=== PATIENT | female | born 1970 | race Caucasian/White ===

== ENCOUNTER 2019-08-13 16:15 | Emergency (ER) | payer OTHER, SELFPAY ==
[2019-08-13 16:15] VITALS: BP 154/73; PULSE 122; RESP 24; TEMP 36.6; O2SAT 97
--- NOTE | 2019-08-13 16:39 | DI.CT.S_ITS ---
PROCEDURE: CT HEAD/BRAIN WO CON INDICATIONS: Fall, Seizure TECHNIQUE: Noncontrast 4.5 mm thick angled axial sections acquired from the foramen magnum to the vertex, with coronal and sagittal reformats. For radiation dose reduction, the following was used: automated exposure control, adjustment of mA and/or kV according to patient size. COMPARISON: [facility], CT, CT FACIAL BONES WO CON, 08/13/2019, 16:42. FINDINGS: Image quality: Excellent. CSF spaces: Basal cisterns are patent. No extra-axial fluid collections. Ventricles are normal in size and shape. Brain: No intracranial hemorrhage, mass, or mass effect. Read-white matter interface is preserved. Skull and face: There is mild left periorbital soft tissue swelling. Calvarium and visualized facial bones are intact, without suspicious lesions. Sinuses: Visualized sinuses and mastoids are clear. IMPRESSION: 1. No acute intracranial abnormality. Dictated by: Nick Sylvester M.D. on 08/13/2019 at 17:04 Approved by: Nick Sylvester M.D. on 08/13/2019 at 17:05
--- NOTE | 2019-08-13 16:39 | DI.CT.S_ITS ---
PROCEDURE: CT CERVICAL SPINE WO CON INDICATIONS: Neck pain TECHNIQUE: Noncontrast 3 mm thick sections acquired from the skull base to the T4 level. Sagittal and coronal reformats were then constructed. For radiation dose reduction, the following was used: automated exposure control, adjustment of mA and/or kV according to patient size. COMPARISON: None. FINDINGS: Image quality: Excellent. Bones: No fractures or dislocations. There is a moderate degree at C5-6 and slightly less C6-C7 degenerative disc disease, without trauma. No subluxation is associated. Visualized superior ribs are intact. Soft tissues: Prevertebral soft tissues are normal in thickness. No paravertebral hematomas. No apical pneumothoraces. IMPRESSION: Chronic degenerative disc disease C5-6 and C6-7 to the degree that spinal and foraminal stenosis, mild in severity, may be associated. Nerve root impingement would be suspected at these 2 levels. No trauma found. Dictated by: Fernando Sorto M.D. on 08/13/2019 at 17:12 Approved by: Fernando Sorto M.D. on 08/13/2019 at 17:13
--- NOTE | 2019-08-13 16:39 | DI.CT.S_ITS ---
PROCEDURE: CT FACIAL BONES WO CON INDICATIONS: L orbital bruising and swelling post fall TECHNIQUE: Noncontrast 2.5 mm thick axial images acquired from the mandible through the frontal sinuses, with coronal and sagittal reformatting. For radiation dose reduction, the following was used: automated exposure control, adjustment of mA and/or kV according to patient size. COMPARISON: [facility], CT, CT HEAD/BRAIN WO CON, 08/13/2019, 16:42. FINDINGS: Image quality: Excellent. Bones and teeth: Orbital devlin are intact. Sinus devlin show no fracture or deformity. Nasal bones and septum are intact. Visualized portions of the mandible demonstrate no fractures or subluxation. Zygomatic arches are intact. Pterygoid plates are intact. Visualized portions of the skull base and auditory canals are intact. Sinuses: Paranasal sinuses are aerated, without fluid levels, mucosal thickening, or mucoceles. Mastoid air cells are aerated. Soft tissues: There is mild left periorbital soft tissue swelling and subcutaneous edema. The globes appear intact. No intraorbital fluid collections or fat stranding. No enlarged lymph nodes. Vascular: Visualized vascular structures appear normal in the absence of contrast. Bony vascular foramina and canals are intact. IMPRESSION: 1. No facial bone fracture identified. 2. Mild left periorbital soft tissue swelling. Dictated by: Nick Sylvester M.D. on 08/13/2019 at 17:05 Approved by: Nick Sylvester M.D. on 08/13/2019 at 17:09
[2019-08-13] MEDS: SODIUM CHLORIDE 0.9% 1,000 ML 1000 ML IV (16:46)
[2019-08-13 17:09] VITALS: BP 154/73; PULSE 111; RESP 18; O2SAT 99
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
[2019-08-13 17:14] LABS: Add Manual Diff / Slide Review NO; Basophils Absolute Auto 0 /uL (0-100); Basophils Percent Auto 1.1 % (0-2); Eosinophils Absolute Auto 0 /uL (0-450); Eosinophils Percent Auto 0.1 % (2-4); Hematocrit 40.5 % (36-46); Hemoglobin 13.1 g/dL (12.0-16.0); Lymphocytes Absolute Auto 400 /uL (1100-4500); Lymphocytes Percent Auto 8.4 % (25-40); Mean Corpuscular HGB Conc 32.3 % (30-36); Mean Corpuscular Hemoglobin 32.4 PG (26-34); Mean Corpuscular Volume 100.4 fL (80-100); Monocytes Absolute Auto 300 /uL (0-900); Monocytes Percent Auto 6.1 % (3-14); Neutrophils Absolute Auto 3700 /uL (1500-7000); Neutrophils Percent Auto 84.3 % (50-75); Platelet Count 96 X10^3/uL (150-400); Red Blood Cell Count 4.03 X10^6/uL (4.0-5.2); Red Cell Distribution Width 17.2 % (11.6-14.8); White Blood Cell Count 4.4 X10^3/uL (4.5-11.0)
[2019-08-13] MEDS: KETOROLAC 60 MG/2 ML VIAL 30 MG IV (17:15)
[2019-08-13] MEDS: ACETAMINOPHEN 325 MG TABLET 650 MG PO (17:16)
[2019-08-13 17:23] LABS: BUN Creatinine Ratio 17.5 (6-22); Blood Urea Nitrogen 11 mg/dL (7-17); Carbon Dioxide 13 mmol/L (22-32); Chloride 99 mmol/L (98-107); Estimated Glomerular Filt Rate > 60.0 mL/min (>60); Glucose 122 mg/dL (70-100); HEMOLYSIS < 15 (0-50); Magnesium 1.9 mg/dL (1.6-2.3); Phosphorous 4.4 mg/dL (2.5-4.5); Potassium 3.7 mmol/L (3.4-5.1); Sodium 140 mmol/L (137-145)
[2019-08-13 17:34] LABS: Ethanol (ETOH) 411 mg/dL
[2019-08-13 17:40] LABS: Prolactin 27.3 ng/mL (3.0-18.6)
== END 2019-08-13 19:51 | disposition home or self-care (01) ==
PROVIDERS: Emergency Provider Nurse Practitioner; PCP General Practice
DX: R56.9 Unspecified convulsions (principal); S09.90XA Unspecified injury of head, initial encounter; M54.2 Cervicalgia; F10.129 Alcohol abuse with intoxication, unspecified; W19.XXXA Unspecified fall, initial encounter
CPT/HCPCS: 36415; 70450; 70486; 72125; 80048; 80320; 83735; 84100; 84146; 85025; 93005; 96361; 96374; 99285; J1885

== ENCOUNTER 2019-12-11 09:32 | Inpatient (IN) | payer OTHER, SELFPAY ==
[2019-12-11] VITALS (50 sets, daily range): BP systolic 122–175; BP diastolic 64–95; PULSE 85–129; RESP 16–25; TEMP 36.4–37.1; O2SAT 90–100; BMI 21.2
--- NOTE | 2019-12-11 10:11 | DI.RAD.S_ITS ---
PROCEDURE: XR CHEST 1V INDICATIONS: cough TECHNIQUE: One view of the chest was acquired. COMPARISON: [facility], , XR CXR 2 VIEW, 12/25/2002, 15:04. FINDINGS: Surgical changes and devices: Mammoplasty implants are incidentally noted. Lungs and pleura: Mild, streaky opacities are seen at the lung bases. No pleural effusions or pneumothorax. Mediastinum: Mediastinal contours appear normal. Heart size is normal. Bones and chest wall: No suspicious bony lesions. Overlying soft tissues appear unremarkable. IMPRESSION: Likely atelectasis is seen at the lung bases. Incidental note is made of: Mammoplasty implants Dictated by: Hakan Reilly M.D. on 12/11/2019 at 9:38 Approved by: Hakan Reilly M.D. on 12/11/2019 at 9:40
--- NOTE | 2019-12-11 10:13 | ED.NAVMDI ---
HPI - Nausea/Vomiting/Diarrhea General Chief complaint: Nausea/Vomiting/Diarrhea Stated complaint: mental health issues, throwing up Time Seen by Provider: 12/11/19 09:53 Source: patient, EMS and police Mode of arrival: Ambulatory Limitations: no limitations History of Present Illness HPI Narrative: Patient complains 1 week of clear nausea vomiting diarrhea with whitish sputum cough. Has had fever and chills. Denies any sick contacts. No COVID-19 exposure. Heart rate noted. Patient states has been too ill to drink oral anything down without throwing up. Related Data Home Medications Medication Instructions Recorded Confirmed No Known Home Medications 12/11/19 12/11/19 Allergies Allergy/AdvReac Type Severity Reaction Status Date / Time iodine Allergy Verified 12/11/19 09:46 Review of Systems Review of Systems Narrative: GENERAL: Denies chills, fatigue, malaise, fever, sweats. HEENT: Denies sinus pain, ear pain, sore throat, difficulty swallowing, dizziness. RESPIRATORY: Denies any dyspnea, has productive cough CARDIOVASCULAR: Denies chest pain, palpitations, orthopnea, edema, GASTROINTESTINAL: Complains of nausea vomiting and watery diarrhea : Denies dysuria, frequency, incontinence, hematuria, urinary retention. MUSCULOSKELETAL: denies weakness, joint pain, or bony pain SKIN: Denies rash, skin lesions, or other NEUROLOGIC: Denies weakness, headache, numbness, change in speech, confusion, seizures, incoordination. PSYCHIATRIC: No concerning psychosocial issues. ROS Unobtainable: All systems reviewed & are unremarkable except as noted in HPI and below Patient History Medical History No significant medical problems (Acute) Social History household members: none Smoking Status: Current every day smoker Smoking Status: Current every day smoker tobacco type: cigarettes alcohol intake frequency: 3 or more drinks per day Substance Use Type: does not use Exam Narrative Exam Narrative: GENERAL: patient appears stated age. Well-nourished, well-developed patient, in no distress, not toxic HEAD: Atraumatic. Normocephalic. EYES: Pupils equal round and reactive. Extraocular motions intact. No scleral icterus. No injection or drainage. ENT: Nose without bleeding, purulent drainage. Throat without erythema, tonsillar hypertrophy or exudate. Airway patent. NECK: Trachea midline. Non tender CARDIOVASCULAR: Regular rate and rhythm without murmurs, gallops, or rubs. RESPIRATORY: Clear to auscultation. Breath sounds equal bilaterally. No wheezes, rales, or rhonchi. GASTROINTESTINAL: Abdomen soft, non-tender, nondistended. EXTREMITIES: No edema or joint tenderness. BACK: Nontender without deformity or crepitance. No flank tenderness. NEURO: AOx3. Clear speech no facial droop. Steady gait in hallway to the bathroom, history of broken foot. SKIN: No rash or erythema of visible areas Initial Vital Signs Initial Vital Signs: Vital Signs Temperature 98.8 F 12/11/19 09:46 Pulse Rate 116 H 12/11/19 09:46 Respiratory Rate 17 12/11/19 09:46 Blood Pressure 136/78 12/11/19 09:46 Pulse Oximetry 95 12/11/19 09:46 Course Course Course Narrative: Patient has been cooperative. Not withdrawing but anxious. Ativan given and has helped. Decision to Admit Date: 12/11/19 Decision to Admit time: 13:24 Orders Ordered: Acetaminophen (Tylenol) 650 mg PO Q6HR PRN PRN Reason: Fever/Mild Pain (1-3) Albuterol (Ventolin) 2.5 mg INH [id number] PRN PRN Reason: Shortness Of Breath Chlordiazepoxide HCl (Librium) 50 mg PO Q6HR [facility] Last Admin: 12/12/19 06:20 Dose: 50 mg Documented by: Admin: 12/12/19 00:20 Dose: 50 mg Documented by: TRISH Folic Acid (Folic Acid) 1 mg PO DAILY [facility] Heparin Sodium (Porcine) (Heparin) 5,000 unit SUBCUT BID [facility] Last Admin: 12/11/19 20:15 Dose: 5,000 unit Documented by: MSTEWART Sodium Chloride (Normal Saline 0.9%) 1,000 mls @ 1,000 mls/hr IV BOLUS PRN PRN Reason: Fluid replacement Last Infusion: 12/11/19 14:08 Dose: 0 mls/hr Documented by: Admin: 12/11/19 12:19 Dose: 1,000 mls/hr Documented by: RMARTIN Sodium Chloride (Normal Saline 0.9%) 1,000 mls @ 100 mls/hr IV CONT JUVE Last Admin: 12/11/19 20:13 Dose: 100 mls/hr Documented by: FRANCHESKA Lorazepam (Ativan) 0 mg IV [id number] PRN; Protocol PRN Reason: Alcohol Withdrawal Last Admin: 12/12/19 04:46 Dose: 2 mg Documented by: Admin: 12/12/19 02:31 Dose: 2 mg Documented by: Admin: 12/12/19 00:40 Dose: 2 mg Documented by: Admin: 12/11/19 21:20 Dose: 2 mg Documented by: Admin: 12/11/19 20:47 Dose: 2 mg Documented by: Admin: 12/11/19 19:32 Dose: 2 mg Documented by: Admin: 12/11/19 18:28 Dose: 2 mg Documented by: Admin: 12/11/19 17:29 Dose: 2 mg Documented by: Admin: 12/11/19 16:55 Dose: 2 mg Documented by: FRANCHESKA Multivitamins (Tab-A-Nany) 1 tab PO DAILY [facility] Naloxone HCl (Narcan) 0.2 mg IV Q2MIN PRN PRN Reason: Opiate Reversal Ondansetron HCl (Zofran) 4 mg IV Q6HR PRN PRN Reason: Nausea And Vomiting Phenobarbital Sodium (Phenobarbital Sodium) 65 mg IV Q2H PRN PRN Reason: ALCOHOL WITHDRAWAL Last Admin: 12/11/19 19:33 Dose: 65 mg Documented by: Admin: 12/11/19 16:55 Dose: 65 mg Documented by: FRANCHESKA Thiamine HCl (Vitamin B-1) 100 mg PO DAILY JUVE Stop: 12/15/19 09:01 Discontinued Medications Sodium Chloride (Normal Saline 0.9%) 1,000 mls @ 1,000 mls/hr IV BOLUS ONE Stop: 12/11/19 11:10 Last Infusion: 12/11/19 12:24 Dose: 0 mls/hr Documented by: Admin: 12/11/19 10:27 Dose: 1,000 mls/hr Documented by: RUFUS Ceftriaxone Sodium/Dextrose (Rocephin) 1 gm in 50 mls @ 100 mls/hr IV NOW ONE Stop: 12/11/19 11:25 Last Infusion: 12/11/19 12:52 Dose: 0 mls/hr Documented by: Admin: 12/11/19 12:22 Dose: 100 mls/hr Documented by: KATE Magnesium Sulfate 2 gm/ Folic Acid 1 mg/ Thiamine HCl 100 mg / Multivitamins 10 ml/ Sodium Chloride 1,015.2 mls @ 125 mls/hr IV NOW ONE Stop: 12/11/19 21:33 Last Admin: 12/11/19 13:57 Dose: 125 mls/hr Documented by: KATE Lorazepam (Ativan) 1 mg IV NOW ONE Stop: 12/11/19 11:47 Last Admin: 12/11/19 12:19 Dose: 1 mg Documented by: KATE Lorazepam (Ativan) 1 mg IV NOW ONE Stop: 12/11/19 14:05 Last Admin: 12/11/19 14:07 Dose: 1 mg Documented by: KATE Lorazepam (Ativan) 1 mg IV NOW ONE Stop: 12/11/19 15:01 Last Admin: 12/11/19 15:32 Dose: 1 mg Documented by: KATE Ondansetron HCl (Zofran) 4 mg IV NOW ONE Stop: 12/11/19 10:12 Last Admin: 12/11/19 10:27 Dose: 4 mg Documented by: RUFUS Ondansetron HCl (Zofran) 4 mg IV NOW ONE Stop: 12/11/19 14:32 Last Admin: 12/11/19 14:36 Dose: 4 mg Documented by: KATE Reevaluation(s) Reevaluation #1: Patient resting comfortably. Not combative. Nausea vomiting diarrhea is controlled. Time: 13:24 Consultations Consultation #1: s/w hospitalist dr valenzuela, will admit regular floor at this time but is aware may need ICU for possible withdrawal symptoms Time: 13:24 Vital Signs Vital signs: Vital Signs - 8 hr 12/11/19 09:46 12/11/19 11:00 12/11/19 12:34 Temperature 98.8 F Pulse Rate 116 H 109 H 108 H Respiratory Rate 17 16 Blood Pressure 136/78 136/64 141/95 H Pulse Oximetry 95 97 95 12/11/19 12:35 Temperature Pulse Rate Respiratory Rate Blood Pressure 146/78 H Pulse Oximetry MDM - Nausea/Vomiting/Diarrhea Lab Data Result diagrams: 12/12/19 04:39 12/12/19 04:39 Labs: Lab Results 12/11/19 12/11/19 12/11/19 Range/Units 09:45 10:00 10:00 WBC 3.8 L (4.5-11.0) X10^3/uL RBC 3.10 L (4.0-5.2) X10^6/uL Hgb 10.9 L (12.0-16.0) g/dL Hct 32.2 L (36-46) % MCV 103.8 H (80-100) fL MCH 35.0 H (26-34) PG MCHC 33.7 (30-36) % RDW 16.5 H (11.6-14.8) % Plt Count 151 (150-400) X10^3/uL Neut % (Auto) 44.1 L (50-75) % Lymph % (Auto) 39.6 (25-40) % Crowley % (Auto) 11.7 (3-14) % Eos % (Auto) 2.4 (2-4) % Baso % (Auto) 2.2 H (0-2) % Neut # (Auto) 1700 (5015-1219) /uL Lymph # (Auto) 1500 (0827-5957) /uL Crowley # (Auto) 400 (0-900) /uL Eos # (Auto) 100 (0-450) /uL Baso # (Auto) 100 (0-100) /uL Sodium (137-145) mmol/L Potassium (3.4-5.1) mmol/L Chloride (98-107) mmol/L Carbon Dioxide (22-32) mmol/L BUN (7-17) mg/dL Creatinine (0.52-1.04) mg/dL Estimated GFR (>60) mL/min BUN/Creatinine Ratio (6-22) Glucose (70-100) mg/dL Lactate (0.7-2.1) mmol/L Calcium (8.4-10.2) mg/dL Total Bilirubin (0.2-1.3) mg/dL AST (14-36) IU/L ALT (<35) IU/L Alkaline Phosphatase (38-126) U/L Total Protein (6.3-8.2) g/dL Albumin (3.5-5.0) g/dL Globulin (1.7-4.1) g/dL Albumin/Globulin Ratio (1.0-2.8) Lipase (23-300) U/L Procalcitonin 0.06 (<0.5) ng/mL Urine Color Urine Appearance Urine pH (4.5-8.0) Ur Specific Braddock (1.000-1.035) Urine Protein (Negative) Urine Glucose (UA) (Negative) g/dL Urine Ketones (NEGATIVE) Urine Occult Blood (Negative) Urine Nitrate (Negative) Urine Bilirubin (NEGATIVE) Urine Urobilinogen (0.2) E.U./dL Ur Leukocyte Esterase (NEGATIVE) Urine RBC (0-5/HPF) Urine WBC (0-5/HPF) Ur Squamous Epith Cells (0-5/HPF) Urine Bacteria (None) Ur Culture Indicated? U Opiates 300ng/mL cut (Negative) Ur Oxycodone Screen (Negative) Urine Methadone Screen (Negative) Ur Barbiturates Screen (Negative) U Tricyclic Antidepress (Negative) Ur Phencyclidine Scrn (Negative) Ur Amphetamines Screen (Negative) U Methamphetamines Scrn (Negative) Ur MDMA Scrn (Ecstasy) (Negative) U Benzodiazepines Scrn (Negative) Urine Cocaine Screen (Negative) U Marijuana (THC) Screen (Negative) Ethyl Alcohol ( - 10) mg/dL Ketones (<0.27) mmol/L COVID-19 PCR Negative (Negative) Hep B Core Total Ab (Negative) 12/11/19 12/11/19 12/11/19 Range/Units 10:00 10:00 10:00 WBC (4.5-11.0) X10^3/uL RBC (4.0-5.2) X10^6/uL Hgb (12.0-16.0) g/dL Hct (36-46) % MCV (80-100) fL MCH (26-34) PG MCHC (30-36) % RDW (11.6-14.8) % Plt Count (150-400) X10^3/uL Neut % (Auto) (50-75) % Lymph % (Auto) (25-40) % Crowley % (Auto) (3-14) % Eos % (Auto) (2-4) % Baso % (Auto) (0-2) % Neut # (Auto) (2996-9789) /uL Lymph # (Auto) (8015-0062) /uL Crowley # (Auto) (0-900) /uL Eos # (Auto) (0-450) /uL Baso # (Auto) (0-100) /uL Sodium 143 (137-145) mmol/L Potassium 3.5 (3.4-5.1) mmol/L Chloride 102 (98-107) mmol/L Carbon Dioxide 28 (22-32) mmol/L BUN 4 L (7-17) mg/dL Creatinine 0.49 L (0.52-1.04) mg/dL Estimated GFR > 60.0 (>60) mL/min BUN/Creatinine Ratio 8.2 (6-22) Glucose 93 (70-100) mg/dL Lactate 4.4 H* (0.7-2.1) mmol/L Calcium 9.3 (8.4-10.2) mg/dL Total Bilirubin 0.9 (0.2-1.3) mg/dL AST 278 H (14-36) IU/L ALT 73 H (<35) IU/L Alkaline Phosphatase 120 (38-126) U/L Total Protein 7.0 (6.3-8.2) g/dL Albumin 4.6 (3.5-5.0) g/dL Globulin 2.4 (1.7-4.1) g/dL Albumin/Globulin Ratio 1.9 (1.0-2.8) Lipase (23-300) U/L Procalcitonin (<0.5) ng/mL Urine Color Urine Appearance Urine pH (4.5-8.0) Ur Specific Braddock (1.000-1.035) Urine Protein (Negative) Urine Glucose (UA) (Negative) g/dL Urine Ketones (NEGATIVE) Urine Occult Blood (Negative) Urine Nitrate (Negative) Urine Bilirubin (NEGATIVE) Urine Urobilinogen (0.2) E.U./dL Ur Leukocyte Esterase (NEGATIVE) Urine RBC (0-5/HPF) Urine WBC (0-5/HPF) Ur Squamous Epith Cells (0-5/HPF) Urine Bacteria (None) Ur Culture Indicated? U Opiates 300ng/mL cut (Negative) Ur Oxycodone Screen (Negative) Urine Methadone Screen (Negative) Ur Barbiturates Screen (Negative) U Tricyclic Antidepress (Negative) Ur Phencyclidine Scrn (Negative) Ur Amphetamines Screen (Negative) U Methamphetamines Scrn (Negative) Ur MDMA Scrn (Ecstasy) (Negative) U Benzodiazepines Scrn (Negative) Urine Cocaine Screen (Negative) U Marijuana (THC) Screen (Negative) Ethyl Alcohol 466 H* ( - 10) mg/dL Ketones 0.51 H (<0.27) mmol/L COVID-19 PCR (Negative) Hep B Core Total Ab (Negative) 12/11/19 12/11/19 12/11/19 Range/Units 10:00 10:00 10:37 WBC (4.5-11.0) X10^3/uL RBC (4.0-5.2) X10^6/uL Hgb (12.0-16.0) g/dL Hct (36-46) % MCV (80-100) fL MCH (26-34) PG MCHC (30-36) % RDW (11.6-14.8) % Plt Count (150-400) X10^3/uL Neut % (Auto) (50-75) % Lymph % (Auto) (25-40) % Crowley % (Auto) (3-14) % Eos % (Auto) (2-4) % Baso % (Auto) (0-2) % Neut # (Auto) (7025-2289) /uL Lymph # (Auto) (6485-7464) /uL Crowley # (Auto) (0-900) /uL Eos # (Auto) (0-450) /uL Baso # (Auto) (0-100) /uL Sodium (137-145) mmol/L Potassium (3.4-5.1) mmol/L Chloride (98-107) mmol/L Carbon Dioxide (22-32) mmol/L BUN (7-17) mg/dL Creatinine (0.52-1.04) mg/dL Estimated GFR (>60) mL/min BUN/Creatinine Ratio (6-22) Glucose (70-100) mg/dL Lactate (0.7-2.1) mmol/L Calcium (8.4-10.2) mg/dL Total Bilirubin (0.2-1.3) mg/dL AST (14-36) IU/L ALT (<35) IU/L Alkaline Phosphatase (38-126) U/L Total Protein (6.3-8.2) g/dL Albumin (3.5-5.0) g/dL Globulin (1.7-4.1) g/dL Albumin/Globulin Ratio (1.0-2.8) Lipase 552 H (23-300) U/L Procalcitonin (<0.5) ng/mL Urine Color Yellow Urine Appearance Clear Urine pH 7.0 (4.5-8.0) Ur Specific Braddock 1.020 (1.000-1.035) Urine Protein 2+ H (Negative) Urine Glucose (UA) Negative (Negative) g/dL Urine Ketones Negative (NEGATIVE) Urine Occult Blood 2+ H (Negative) Urine Nitrate Negative (Negative) Urine Bilirubin Negative (NEGATIVE) Urine Urobilinogen 0.2 (0.2) E.U./dL Ur Leukocyte Esterase Negative (NEGATIVE) Urine RBC 5-10/hpf H (0-5/HPF) Urine WBC None seen (0-5/HPF) Ur Squamous Epith Cells 5-10 /hpf H (0-5/HPF) Urine Bacteria None seen (None) Ur Culture Indicated? Cult not indicated U Opiates 300ng/mL cut (Negative) Ur Oxycodone Screen (Negative) Urine Methadone Screen (Negative) Ur Barbiturates Screen (Negative) U Tricyclic Antidepress (Negative) Ur Phencyclidine Scrn (Negative) Ur Amphetamines Screen (Negative) U Methamphetamines Scrn (Negative) Ur MDMA Scrn (Ecstasy) (Negative) U Benzodiazepines Scrn (Negative) Urine Cocaine Screen (Negative) U Marijuana (THC) Screen (Negative) Ethyl Alcohol ( - 10) mg/dL Ketones (<0.27) mmol/L COVID-19 PCR (Negative) Hep B Core Total Ab Negative (Negative) 12/11/19 Range/Units 10:37 WBC (4.5-11.0) X10^3/uL RBC (4.0-5.2) X10^6/uL Hgb (12.0-16.0) g/dL Hct (36-46) % MCV (80-100) fL MCH (26-34) PG MCHC (30-36) % RDW (11.6-14.8) % Plt Count (150-400) X10^3/uL Neut % (Auto) (50-75) % Lymph % (Auto) (25-40) % Crowley % (Auto) (3-14) % Eos % (Auto) (2-4) % Baso % (Auto) (0-2) % Neut # (Auto) (7870-5708) /uL Lymph # (Auto) (2070-6865) /uL Crowley # (Auto) (0-900) /uL Eos # (Auto) (0-450) /uL Baso # (Auto) (0-100) /uL Sodium (137-145) mmol/L Potassium (3.4-5.1) mmol/L Chloride (98-107) mmol/L Carbon Dioxide (22-32) mmol/L BUN (7-17) mg/dL Creatinine (0.52-1.04) mg/dL Estimated GFR (>60) mL/min BUN/Creatinine Ratio (6-22) Glucose (70-100) mg/dL Lactate (0.7-2.1) mmol/L Calcium (8.4-10.2) mg/dL Total Bilirubin (0.2-1.3) mg/dL AST (14-36) IU/L ALT (<35) IU/L Alkaline Phosphatase (38-126) U/L Total Protein (6.3-8.2) g/dL Albumin (3.5-5.0) g/dL Globulin (1.7-4.1) g/dL Albumin/Globulin Ratio (1.0-2.8) Lipase (23-300) U/L Procalcitonin (<0.5) ng/mL Urine Color Urine Appearance Urine pH (4.5-8.0) Ur Specific Braddock (1.000-1.035) Urine Protein (Negative) Urine Glucose (UA) (Negative) g/dL Urine Ketones (NEGATIVE) Urine Occult Blood (Negative) Urine Nitrate (Negative) Urine Bilirubin (NEGATIVE) Urine Urobilinogen (0.2) E.U./dL Ur Leukocyte Esterase (NEGATIVE) Urine RBC (0-5/HPF) Urine WBC (0-5/HPF) Ur Squamous Epith Cells (0-5/HPF) Urine Bacteria (None) Ur Culture Indicated? U Opiates 300ng/mL cut Negative (Negative) Ur Oxycodone Screen Negative (Negative) Urine Methadone Screen Negative (Negative) Ur Barbiturates Screen Negative (Negative) U Tricyclic Antidepress Negative (Negative) Ur Phencyclidine Scrn Negative (Negative) Ur Amphetamines Screen Negative (Negative) U Methamphetamines Scrn Negative (Negative) Ur MDMA Scrn (Ecstasy) Negative (Negative) U Benzodiazepines Scrn Negative (Negative) Urine Cocaine Screen Negative (Negative) U Marijuana (THC) Screen Positive H (Negative) Ethyl Alcohol ( - 10) mg/dL Ketones (<0.27) mmol/L COVID-19 PCR (Negative) Hep B Core Total Ab (Negative) Imaging Data CT scan - abdomen/pelvis: Radiologist's Impression: [address] [address] [address] Scan Report Signed Patient: Era Grover MMR#: [id number] : 1970Acct:[id number] Age/Sex: 48 / FDate of Service: 12/11/19 Loc: ED Accession Number: [id number] Procedure: CT abdomen pelvis wo con Ordering Provider: Toño Greco MD PROCEDURE: CT ABDOMEN PELVIS WO CON INDICATIONS: Abdominal pain/diarrhea TECHNIQUE: Noncontrast 5 mm thick sections acquired from the diaphragms to the symphysis. 5 mm thick coronal and sagittal reformats were then performed. For radiation dose reduction, the following was used: automated exposure control, adjustment of mA and/or kV according to patient size. COMPARISON: [facility], CT, KIDNEY/ URETER/BLADDER, 06/05/2007, 5:17. [facility], CT, ABDOMEN/PELVIS WITHOUT CONTRAST, 02/13/2010, 12:54. FINDINGS: Image quality: Excellent. Lung bases: Bibasilar atelectasis. Heart size is normal. There is a small hiatal hernia. Note is made of right breast implant. Urinary system: There is a 4 x 7 mm stone in the superior pole of the left kidney. No hydronephrosis. Both kidneys are normal in size. Both ureters appear non-dilated throughout their expected courses. Bladder wall thickness is normal; no calcified bladder stones. Other solid organs: Severe hepatic steatosis. Liver is normal in size. Gallbladder is normal. Pancreas is normal in contours. Spleen is normal in size. No adrenal nodules. Peritoneum and bowel: There is diffuse colonic wall thickening. Appendix is not identified. No CT findings to suggest acute appendicitis. Unenhanced bowel loops demonstrate normal caliber. No free air. There is a trace amount of free fluid. Nodes and vessels: No retroperitoneal or mesenteric adenopathy by size criteria. Aorta and inferior vena cava are normal in caliber. Abdominal wall: No ventral hernias. Pelvis: No free pelvic fluid. No inguinal hernias or adenopathy. Uterus is normal. No adnexal mass. Bones: No suspicious bony lesions. No vertebral body compression fractures. IMPRESSION: 1. Diffuse colonic wall thickening consistent with colitis. Differential diagnosis include inflammatory bowel disease versus infectious colitis. 2. A 4 x 7 mm nonobstructing stone in the superior pole of the left kidney. 3. Hepatic steatosis. 4. Small hiatal hernia. Dictated by: Timothy Yanez M.D. on 12/11/2019 at 12:52 Approved by: Timothy Yanez M.D. on 12/11/2019 at 12:59 Chest x-ray: Radiologist's Impression: [place] [address] XRay Report Signed Patient: Era Grover [facility]#: [id number] : 1970Acct:[id number] Age/Sex: 48 / FDate of Service: 12/11/19 Loc: ED Accession Number: [id number] Procedure: XR chest 1V Ordering Provider: Toño Greco MD PROCEDURE: XR CHEST 1V INDICATIONS: cough TECHNIQUE: One view of the chest was acquired. COMPARISON: [facility], , XR CXR 2 VIEW, 12/25/2002, 15:04. FINDINGS: Surgical changes and devices: Mammoplasty implants are incidentally noted. Lungs and pleura: Mild, streaky opacities are seen at the lung bases. No pleural effusions or pneumothorax. Mediastinum: Mediastinal contours appear normal. Heart size is normal. Bones and chest wall: No suspicious bony lesions. Overlying soft tissues appear unremarkable. IMPRESSION: Likely atelectasis is seen at the lung bases. Incidental note is made of: Mammoplasty implants Dictated by: Hakan Reilly M.D. on 12/11/2019 at 9:38 Approved by: Hakan Reilly M.D. on 12/11/2019 at 9:40 MDM Narrative Medical decision making narrative: Addendum December 12, 2019 at 7:49 a.m. completing notes from yesterday. Decision to admit due to intractable vomiting and diarrhea with colitis and alcohol abuse. Had been given for withdrawal symptoms and control. Banana bag ordered. Hospitalist desire to originally admit to [facility] surge floor and is aware possible need to go to ICU for withdrawal symptoms. Discharge Plan Departure Patient Disposition: Admitted As Inpatient Clinical Impression: Colitis, Alcohol abuse Discharge Date/Time: 12/11/19 15:33 Admit Date/Time: 12/11/19 13:26 Admit Provider: Camden Valenzuela
[2019-12-11] MEDS: ONDANSETRON 4 MG/2 ML INJ IV ×2 (10:27→14:36)
[2019-12-11] MEDS: SODIUM CHLORIDE 0.9% 1,000 ML 1000 ML IV ×2 (10:27→12:19)
[2019-12-11 10:29] LABS: Add Manual Diff / Slide Review NO; Basophils Absolute Auto 100 /uL (0-100); Basophils Percent Auto 2.2 % (0-2); Eosinophils Absolute Auto 100 /uL (0-450); Eosinophils Percent Auto 2.4 % (2-4); Hematocrit 32.2 % (36-46); Hemoglobin 10.9 g/dL (12.0-16.0); Lymphocytes Absolute Auto 1500 /uL (1100-4500); Lymphocytes Percent Auto 39.6 % (25-40); Mean Corpuscular HGB Conc 33.7 % (30-36); Mean Corpuscular Volume 103.8 fL (80-100); Monocytes Absolute Auto 400 /uL (0-900); Monocytes Percent Auto 11.7 % (3-14); Neutrophils Absolute Auto 1700 /uL (1500-7000); Neutrophils Percent Auto 44.1 % (50-75); Platelet Count 151 X10^3/uL (150-400); Red Cell Distribution Width 16.5 % (11.6-14.8); White Blood Cell Count 3.8 X10^3/uL (4.5-11.0)
[2019-12-11 10:39] LABS: Alanine Aminotransferase 73 IU/L (<35); Albumin 4.6 g/dL (3.5-5.0); Albumin Globulin Ratio 1.9 (1.0-2.8); Alkaline Phosphatase 120 U/L (38-126); Aspartate Aminotransferase 278 IU/L (14-36); BUN Creatinine Ratio 8.2 (6-22); Bilirubin Total 0.9 mg/dL (0.2-1.3); Blood Urea Nitrogen 4 mg/dL (7-17); Calcium 9.3 mg/dL (8.4-10.2); Carbon Dioxide 28 mmol/L (22-32); Chloride 102 mmol/L (98-107); Estimated Glomerular Filt Rate > 60.0 mL/min (>60); Globulin 2.4 g/dL (1.7-4.1); Glucose 93 mg/dL (70-100); HEMOLYSIS 23 (0-50); Potassium 3.5 mmol/L (3.4-5.1); Sodium 143 mmol/L (137-145)
[2019-12-11 10:41] LABS: Ketones (Beta-Hydroxybutyrate) 0.51 mmol/L (<0.27)
[2019-12-11 10:42] LABS: Lactate (Lactic Acid) 4.4 mmol/L (0.7-2.1)
[2019-12-11 10:42] LABS: Bacteria Urine None Seen; WBC Urine None Seen (0-5/HPF)
[2019-12-11 10:43] LABS: Appearance Urine UA CLEAR; Bilirubin Urine UA NEGATIVE (NEGATIVE); Glucose Urine UA NEGATIVE (Negative); Ketones Urine UA NEGATIVE (NEGATIVE); Leukocyte Esterase Urine UA NEGATIVE (NEGATIVE); Nitrite Urine UA NEGATIVE (Negative); Occult Blood Urine UA 2+ (Negative); Protein Urine UA 2+ (Negative); Urobilinogen Urine UA 0.2 E.U./dL (0.2)
[2019-12-11 10:44] LABS: Ur Creatinine Normal (Normal); Ur Specific Gravity Normal (Normal); Urine pH Normal (Normal)
[2019-12-11 10:45] LABS: UR Morphine/Opiate cutoff 300 Negative (Negative); Urine Amphetamines Negative (Negative); Urine Barbiturates Negative (Negative); Urine Benzodiazepines Negative (Negative); Urine Cocaine Negative (Negative); Urine MDMA Negative (Negative); Urine Methadone Negative (Negative); Urine Methamphetamines Negative (Negative); Urine Oxycodone Negative (Negative); Urine Phencyclidine Negative (Negative); Urine Tetrahydrocannabinol Positive (Negative); Urine Tricyclic Antidepressant Negative (Negative)
[2019-12-11 10:50] LABS: Color Urine UA Yellow; Culture Indicated Urine Cult Not Indicated; RBC Urine 5-10/HPF (0-5/HPF); Squamous Epithelial Cell Urine 5-10 /HPF (0-5/HPF)
[2019-12-11 10:56] LABS: Procalcitonin 0.06 ng/mL (<0.5)
[2019-12-11 10:59] LABS: Ethanol (ETOH) 466 mg/dL
[2019-12-11 11:42] LABS: COVID19 -Nasal RAPID Negative (Negative)
--- NOTE | 2019-12-11 12:07 | PC.NURSE ---
Charge Nurse Olamide reported patient pulled out original IV site to L hand. New IV inserted to R wrist.
[2019-12-11] MEDS: LORazepam 2 MG/ML INJ 1 MG IV ×3 (12:19→15:32)
[2019-12-11 12:22] LABS: Reflexed Lactate in 2 Hours Y
[2019-12-11] MEDS: CEFTRIAXONE 1 GM/50 ML FROZ.PIGGY IV (12:22)
--- NOTE | 2019-12-11 12:31 | DI.CT.S_ITS ---
PROCEDURE: CT ABDOMEN PELVIS WO CON INDICATIONS: Abdominal pain/diarrhea TECHNIQUE: Noncontrast 5 mm thick sections acquired from the diaphragms to the symphysis. 5 mm thick coronal and sagittal reformats were then performed. For radiation dose reduction, the following was used: automated exposure control, adjustment of mA and/or kV according to patient size. COMPARISON: [facility], CT, KIDNEY/ URETER/BLADDER, 06/05/2007, 5:17. [facility], CT, ABDOMEN/PELVIS WITHOUT CONTRAST, 02/13/2010, 12:54. FINDINGS: Image quality: Excellent. Lung bases: Bibasilar atelectasis. Heart size is normal. There is a small hiatal hernia. Note is made of right breast implant. Urinary system: There is a 4 x 7 mm stone in the superior pole of the left kidney. No hydronephrosis. Both kidneys are normal in size. Both ureters appear non-dilated throughout their expected courses. Bladder wall thickness is normal; no calcified bladder stones. Other solid organs: Severe hepatic steatosis. Liver is normal in size. Gallbladder is normal. Pancreas is normal in contours. Spleen is normal in size. No adrenal nodules. Peritoneum and bowel: There is diffuse colonic wall thickening. Appendix is not identified. No CT findings to suggest acute appendicitis. Unenhanced bowel loops demonstrate normal caliber. No free air. There is a trace amount of free fluid. Nodes and vessels: No retroperitoneal or mesenteric adenopathy by size criteria. Aorta and inferior vena cava are normal in caliber. Abdominal wall: No ventral hernias. Pelvis: No free pelvic fluid. No inguinal hernias or adenopathy. Uterus is normal. No adnexal mass. Bones: No suspicious bony lesions. No vertebral body compression fractures. IMPRESSION: 1. Diffuse colonic wall thickening consistent with colitis. Differential diagnosis include inflammatory bowel disease versus infectious colitis. 2. A 4 x 7 mm nonobstructing stone in the superior pole of the left kidney. 3. Hepatic steatosis. 4. Small hiatal hernia. Dictated by: Timothy Yanez M.D. on 12/11/2019 at 12:52 Approved by: Timothy Yanez M.D. on 12/11/2019 at 12:59
[2019-12-11] MEDS: MAGNESIUM SULFATE 2 GM, FOLIC ACID 1 MG, THIAMINE 100 MG, MULTIVITAMIN 10 ML in SODIUM ... IV (13:57)
[2019-12-11 14:31] LABS: Lactate 2HR (Lactic Acid Rflx) 4.1 mmol/L (0.7-2.1)
[2019-12-11 15:00] LABS: Lipase 552 U/L (23-300)
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
[2019-12-11] MEDS: PHENobarbital 130 MG/ML VIAL 65 MG IV ×2 (16:55→19:33)
[2019-12-11] MEDS: LORazepam 2 MG/ML INJ IV ×6 (16:55→21:20)
--- NOTE | 2019-12-11 17:02 | DI.RAD.S_ITS ---
PROCEDURE: XR FOOT LT 2V INDICATIONS: reported fracture, not wearing brace, continued pain TECHNIQUE: AP and lateral views of the foot were acquired. COMPARISON: [facility], , FOOT 3V RIGHT, 11/18/2006, 10:32. FINDINGS: Bones: No acute fractures or dislocations. No suspicious bony lesions. Incidental note of os naviculare and prominent retrocalcaneal spur Soft tissues: Mild soft tissue swelling over the left forefoot. No tibiotalar joint effusion. Achilles tendon appears normal. IMPRESSION: Mild left forefoot soft tissue swelling without underlying fracture or dislocation. If there is persistent clinical concern for occult fracture given adequate mechanism of injury, consider repeat imaging in 10-14 days. Dictated by: Markie Baldwin M.D. on 12/11/2019 at 17:34 Approved by: Markie Baldwin M.D. on 12/11/2019 at 17:39
[2019-12-11] MEDS: SODIUM CHLORIDE 0.9% 1,000 ML 100 ML IV (20:13)
[2019-12-11] MEDS: HEPARIN 5,000 UNIT/ML VIAL 5000 UNIT SUBCUT (20:15)
[2019-12-12] VITALS (34 sets, daily range): BP systolic 142–170; BP diastolic 78–99; PULSE 65–130; RESP 14–20; TEMP 36.6–37.9; O2SAT 90–100
[2019-12-12] MEDS: chlordiazePOXIDE 25 MG CAPSULE 50 MG PO ×2 (00:20→06:20)
[2019-12-12] MEDS: LORazepam 2 MG/ML INJ IV ×5 (00:40→13:00)
[2019-12-12 02:36] LABS: Hepatitis B Core Antibody Negative (Negative)
[2019-12-12 05:05] LABS: Add Manual Diff / Slide Review NO; Basophils Absolute Auto 100 /uL (0-100); Basophils Percent Auto 1.7 % (0-2); Eosinophils Absolute Auto 0 /uL (0-450); Eosinophils Percent Auto 0.9 % (2-4); Hematocrit 31.2 % (36-46); Hemoglobin 10.6 g/dL (12.0-16.0); Lymphocytes Absolute Auto 600 /uL (1100-4500); Lymphocytes Percent Auto 11.3 % (25-40); Mean Corpuscular HGB Conc 33.9 % (30-36); Mean Corpuscular Hemoglobin 35.3 PG (26-34); Mean Corpuscular Volume 104.2 fL (80-100); Monocytes Absolute Auto 300 /uL (0-900); Monocytes Percent Auto 5.4 % (3-14); Neutrophils Absolute Auto 4200 /uL (1500-7000); Neutrophils Percent Auto 80.7 % (50-75); Platelet Count 100 X10^3/uL (150-400); Red Blood Cell Count 2.99 X10^6/uL (4.0-5.2); Red Cell Distribution Width 16.3 % (11.6-14.8); White Blood Cell Count 5.2 X10^3/uL (4.5-11.0)
[2019-12-12 05:20] LABS: INR 0.9 (0.9-1.3); Prothrombin Time 10.9 SECONDS (10.1-12.7)
[2019-12-12 05:22] LABS: PTT Partial Thromboplastin Tim 30 SECONDS (26.4-36.2)
[2019-12-12 05:24] LABS: Albumin Globulin Ratio 1.7 (1.0-2.8); Alkaline Phosphatase 111 U/L (38-126); Aspartate Aminotransferase 162 IU/L (14-36); Bilirubin Total 1.6 mg/dL (0.2-1.3); Bilirubin Unconjugated 1.5 mg/dL (0.0-1.1); Calcium 8.3 mg/dL (8.4-10.2); Carbon Dioxide 31 mmol/L (22-32); Chloride 99 mmol/L (98-107); Estimated Glomerular Filt Rate > 60.0 mL/min (>60); Globulin 2.3 g/dL (1.7-4.1); Glucose 89 mg/dL (70-100); HEMOLYSIS < 15 (0-50); Magnesium 1.6 mg/dL (1.6-2.3); Phosphorous 3.2 mg/dL (2.5-4.5); Potassium 3.8 mmol/L (3.4-5.1); Sodium 134 mmol/L (137-145); Total Protein 6.3 g/dL (6.3-8.2)
[2019-12-12 05:27] LABS: BUN Creatinine Ratio 4.4 (6-22); Blood Urea Nitrogen < 2 mg/dL (7-17)
[2019-12-12 05:44] LABS: Lactate (Lactic Acid) 1.4 mmol/L (0.7-2.1)
--- NOTE | 2019-12-12 06:39 | PC.NURSE ---
Glass Presser Note-Patient is oriented to person and place, CIWA has been 3-17, mostly from tremors and anxiety, is cooperative and uses call light most of the time. Receiving PO Librium Q6h and IV Ativan per CIWA protocol. SR/ST, HR goes up to 120s with activity. 1 person assist to BSC.
[2019-12-12 07:05] LABS: TSH w/ Reflex to FT4 4.96 uIU/mL (0.47-4.68)
[2019-12-12] MEDS: HEPARIN 5,000 UNIT/ML VIAL 5000 UNIT SUBCUT ×2 (08:35→21:39)
[2019-12-12] MEDS: THIAMINE 100 MG TABLET PO (08:36)
[2019-12-12] MEDS: chlordiazePOXIDE 25 MG CAPSULE PO (08:36)
[2019-12-12] MEDS: FOLIC ACID 1 MG TABLET PO (08:36)
[2019-12-12] MEDS: MULTIVITAMIN 1 TABLET 1 TAB PO (08:36)
[2019-12-12 08:42] LABS: Hep C Virus Ab w/Reflex Quant NEGATIVE s/c (NEGATIVE); Hepatitis B Surface Antigen NEGATIVE s/c (NEGATIVE)
[2019-12-12] MEDS: ONDANSETRON 4 MG/2 ML INJ IV (08:49)
[2019-12-12] MEDS: SODIUM CHLORIDE 0.9% 1,000 ML 100 ML IV (08:54)
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
[2019-12-12] MEDS: chlordiazePOXIDE 25 MG CAPSULE 75 MG PO ×3 (12:52→23:58)
[2019-12-12 14:11] LABS: Alanine Aminotransferase 61 IU/L (<35)
[2019-12-12] MEDS: ACETAMINOPHEN 325 MG TABLET 650 MG PO ×2 (15:50→23:59)
[2019-12-12] MEDS: LORazepam 1 MG TABLET PO ×2 (15:58→23:59)
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
[2019-12-13] VITALS (12 sets, daily range): BP systolic 123–173; BP diastolic 74–94; PULSE 74–110; RESP 16–20; TEMP 36.3–37.2; O2SAT 96–100
[2019-12-13] MEDS: LORazepam 1 MG TABLET PO ×3 (04:50→16:15)
[2019-12-13 05:16] LABS: Hematocrit 31.4 % (36-46); Hemoglobin 10.6 g/dL (12.0-16.0); Mean Corpuscular HGB Conc 33.7 % (30-36); Mean Corpuscular Hemoglobin 35.3 PG (26-34); Mean Corpuscular Volume 104.7 fL (80-100); Platelet Count 88 X10^3/uL (150-400); Red Cell Distribution Width 16.4 % (11.6-14.8); White Blood Cell Count 3.5 X10^3/uL (4.5-11.0)
[2019-12-13 05:20] LABS: Alanine Aminotransferase 64 IU/L (<35); Albumin Globulin Ratio 1.5 (1.0-2.8); Alkaline Phosphatase 117 U/L (38-126); Aspartate Aminotransferase 192 IU/L (14-36); Bilirubin Total 1.1 mg/dL (0.2-1.3); Calcium 9.2 mg/dL (8.4-10.2); Carbon Dioxide 22 mmol/L (22-32); Chloride 101 mmol/L (98-107); Estimated Glomerular Filt Rate > 60.0 mL/min (>60); Globulin 2.6 g/dL (1.7-4.1); Glucose 71 mg/dL (70-100); HEMOLYSIS < 15 (0-50); Magnesium 1.5 mg/dL (1.6-2.3); Phosphorous 3.5 mg/dL (2.5-4.5); Potassium 3.3 mmol/L (3.4-5.1); Sodium 135 mmol/L (137-145); Total Protein 6.6 g/dL (6.3-8.2)
[2019-12-13 05:21] LABS: Add Manual Diff / Slide Review YES; BUN Creatinine Ratio 4.3 (6-22); Blood Urea Nitrogen 2 mg/dL (7-17)
[2019-12-13 05:35] LABS: Neutrophils Absolute Manual 2555 /uL (3000-5900); Nucleated Red Blood Cells 3 #/Diff; Total Cells Counted 100
[2019-12-13 05:36] LABS: Anisocytosis 1+; Macrocytosis 1+; Polychromasia 1+
[2019-12-13] MEDS: ACETAMINOPHEN 325 MG TABLET 650 MG PO ×2 (06:03→12:29)
[2019-12-13] MEDS: chlordiazePOXIDE 25 MG CAPSULE 75 MG PO ×3 (06:04→18:20)
[2019-12-13 07:22] LABS: Hepatitis B Surf Ab Qualitativ Non Reactive (.)
[2019-12-13] MEDS: ONDANSETRON 4 MG/2 ML INJ IV (08:10)
[2019-12-13] MEDS: FOLIC ACID 1 MG TABLET PO (09:08)
[2019-12-13] MEDS: THIAMINE 100 MG TABLET PO (09:08)
[2019-12-13] MEDS: GABAPENTIN 100 MG CAPSULE 400 MG PO ×3 (09:08→19:51)
[2019-12-13] MEDS: KETOROLAC 30 MG/ML VIAL IV (09:08)
[2019-12-13] MEDS: MULTIVITAMIN 1 TABLET 1 TAB PO (09:08)
[2019-12-13] MEDS: HEPARIN 5,000 UNIT/ML VIAL 5000 UNIT SUBCUT ×2 (09:08→19:51)
[2019-12-13] MEDS: MAGNESIUM SULFATE 2 GM/50 ML PIGGYBACK IV (12:28)
[2019-12-13] MEDS: POTASSIUM CHLORIDE 20 MEQ TAB 40 MEQ PO (12:28)
--- NOTE | 2019-12-13 14:16 | PT.IIE ---
Current Diagnoses Alcohol dependence with withdrawal, uncomplicated (12/11/19) Medical History (Last Reviewed 12/11/19 @ 10:17 by Toño Greco MD) No significant medical problems (Acute) Physical Therapy Inpatient Evaluation/Re-Eval M1 PT/OT-IP Prior Functional Status Start: 12/13/19 14:19 Freq: NEEDED Status: Active Protocol: Document 12/13/19 13:35 DCW (Rec: 12/13/19 14:30 DCW [id number]) Medical Review Social History Household Members none Living Arrangements Apartment/Condo M2 PT-IP Current Condition Start: 12/13/19 14:19 Freq: NEEDED Status: Active Protocol: Document 12/13/19 13:35 DCW (Rec: 12/13/19 14:30 DCW [id number]) Physical Therapy Current Condition Current Condition Evaluation Date 12/13/19 Treatment Diagnosis ankle sprain Onset Date two weeks M3 PT-IP Subjective Start: 12/13/19 14:19 Freq: NEEDED Status: Active Protocol: Document 12/13/19 13:35 DCW (Rec: 12/13/19 14:30 DCW [id number]) Subjective Physical Therapy Visit Type Type Initial Evaluation Visit Start Time 13:35 Visit Stop Time 14:16 Total Visit Minutes 41 Notes Pt admitted to [facility] for management of withdraw symptoms secondary to ETOH abuse. Pt also experiencing severe L ankle pain after a fall two weeks ago while hiking. X-rays were negative, Dr Valenzuela requested Physical Therapy provide pt with walking boot. Number of VOLLEYBALL COACH Visits 0 Physical Therapy Visit Comments Patient Comments I don't know what you expect me to do, it hurts too much. Therapy Pain Assessment Pain When Pain Assessed At Rest Location Left Foot Intensity 6 Scale Used Numeric (0 - 10) M4 PT-IP Mobility and Gait Start: 12/13/19 14:19 Freq: NEEDED Status: Active Protocol: Document 12/13/19 13:35 DCW (Rec: 12/13/19 14:30 DCW [id number]) PT-Bed Mobility Assessment Rolling Level of Assist Independent Supine to Sit Supine to Sit Independent Sit to Supine Sit to Supine Independent PT-Transfer Assessment Sit to and From Stand Sit to and from Stand Independent Equipment Transfer Assistive Device Bed Rail,Standard Walker Transfer Ability Level of Assist Independent Comments Mobility Comments Pt experienced severe pain in standing /s a walking boot, however upon donning boot, it 's like a miracle, that thing, pt notes ankle felt much better while bearing weight. Pt required FWW and SBA due to instability, pt able to walk two laps around room with minimal pain. Gait Assessment Gait Gait Assistance Required: Standby Assistance Distance (Feet) 20 Able to Maintain Weight Bearing Status Yes During Gait Assistive Devices Assistive Device Standard Walker Gait Deviations General Gait Pattern Antalgic,Decreased Feet Clearance,Flexed Trunk,Wide Based Gait Factors Limiting Gait Function Factors Limiting Gait Function Decreased Activity Tolerance, Incoordination,Pain,Poor Safety Awareness M5 PT-IP Objective Assessments Start: 12/13/19 14:19 Freq: NEEDED Status: Active Protocol: Document 12/13/19 13:35 DCW (Rec: 12/13/19 14:30 DCW [id number]) Orientation Orientation/Cognition Level of Alertness Alert Language Function Ability No Deficits Noted Safety Awareness Understands Safety Issues Memory Description No Deficits Noted Strength Lower Extremity Strength Assessment Left Impaired Ankle 3/5 Coordination Assessment Gross Coordination Gross Coordination Impaired M6 PT-IP Treatment Start: 12/13/19 14:19 Freq: NEEDED Status: Active Protocol: Document 12/13/19 13:35 DCW (Rec: 12/13/19 14:30 DCW [id number]) Physical Therapy Treatment Education Brace Education Donning,Pillow,Patient Equipment Issued Equipment Type and Company Lunar air walker - walking boot M7 PT-IP Assessment and Plan Start: 12/13/19 14:19 Freq: NEEDED Status: Active Protocol: Document 12/13/19 13:35 DCW (Rec: 12/13/19 14:30 DCW [id number]) PT Summary Assessment and Plan Potential Rehabilitation Potential Good Status of Condition at Evaluation Evolving Summary Impairments Pain,ROM,Strength Assessment Summary Pt much more comfortable ambulating with air walking boot and FWW, still unstable secondary to DTs/withdraw symptoms. Pt should wear walking boot during weight bearing activities during in- patient stay, and will likely need to follow-up with her PCP upon discharge. Boot dispensed per orders, will discharge from in-patient therapy at this time. Frequency of Treatment Frequency Of Treatment Discharge Recommendations To Nursing Amount of Assist Needed Standby Assistance,1 Person Assist Discharge Recommendations PT Discharge Recommendations Home,Home with Assistance Other Discharge Recommendations May need FWW upon discharge pending pt response to DT Transportation Needs at Discharge Private Vehicle
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
--- NOTE | 2019-12-13 15:48 | DIET.PN ---
Dietary Progress Note Assessment: 48y F admitted for 2w of vomiting secondary to prolonged etoh use referred to nutrition for alcoholism. Pt reports drinking 1/2gal vodka per day for past 6mo worsened by of immediate family members. Pt reports vomiting for past 2w, her throat and tongue are still sore today from the stomach acid. Pt says her eyes do wonder sometimes and get fuzzy/nystigmus. Pt was trying to plug her phone into the wrong side of phone mining manager, I assisted her in flipping the mining manager at which point pt tried again the wrong way and stated it worked earlier, then said she could not see anything. Pt's phone was beeping and told me if she put the tv remote under her pillow it would make the phone stop beeping, it did not. Pt reports hx of anemia and endorses craving ice, current hgb 10.6 L. Pt has never been breakfast eater and cannot recall foods she has eaten over past 2w. Pt says she usually does not eat food when on drinking binges but does drink pulpy orange juice. Pt reports liking salmon and fettuccine blanco, [place], does not like beef or black pepper. Pt has been living in a motel. HT: 160cm WT: 54.4kg UBW: none on record, pt reports gaining weight over past 6mo and losing while in hospital BMI: 21.3 Labs: hgb 10.6 L, Na 135 L, K+ 3.3 L, Mg 1.5L, AST 192 H, ALT 64 H, etoh on admit 466 H MNA: not calculated Sampson: 19 Nutrition Diagnosis: Interventions: 1. Discussed thiamine deficiency in context of chronic excessive etoh use, why thiamin is nutrient of concern and signs of thiamin deficiency (vomiting, nystigmus, WE). 2. Encouraged pt to eat nutritious foods while in hospital to support her body and healing, acclimated pt to menu and how to order meals. Helped pt order her dinner of: turkey c mashed potatoes, broccoli, side salad and oj. Diet Order: EER: 1500kcal, 70g PRO Monitoring/Evaluations: following POs.
[2019-12-13 19:50] LABS: Bacteria Urine None Seen; WBC Urine None Seen (0-5/HPF)
[2019-12-13] MEDS: SODIUM CHLORIDE 0.9% FLUSH 10 ML IV (19:50)
[2019-12-13 19:51] LABS: Appearance Urine UA CLEAR; Bilirubin Urine UA 2+ (NEGATIVE); Color Urine UA YELLOW; Glucose Urine UA NEGATIVE (Negative); Ketones Urine UA 2+ (NEGATIVE); Leukocyte Esterase Urine UA NEGATIVE (NEGATIVE); Nitrite Urine UA NEGATIVE (Negative); Occult Blood Urine UA 1+ (Negative); Protein Urine UA 1+ (Negative)
[2019-12-13] MEDS: polyethylene glycoL 3350 17 GM POWD.PACK PO (19:51)
[2019-12-13 19:52] LABS: pH Urine UA 6.5 (4.5-8.0)
[2019-12-13 19:54] LABS: Ictotest Urine Negative (Negative)
[2019-12-13 19:58] LABS: RBC Urine 1-5/HPF (0-5/HPF); Squamous Epithelial Cell Urine >30 /HPF (0-5/HPF)
[2019-12-13 19:59] LABS: Culture Indicated Urine Cult Not Indicated; Mucus Urine 2+ (Negative)
[2019-12-13] MEDS: KETOROLAC 10 MG TABLET PO (20:09)
[2019-12-14] VITALS (14 sets, daily range): BP systolic 114–156; BP diastolic 62–92; PULSE 71–96; RESP 16–20; TEMP 36.1–37; O2SAT 97–99
[2019-12-14] MEDS: chlordiazePOXIDE 25 MG CAPSULE 75 MG PO ×2 (00:26→06:24)
[2019-12-14] MEDS: KETOROLAC 10 MG TABLET PO ×4 (03:29→22:17)
[2019-12-14] MEDS: LORazepam 1 MG TABLET PO ×5 (03:29→22:17)
[2019-12-14] MEDS: ONDANSETRON 4 MG/2 ML INJ IV (03:29)
[2019-12-14 06:18] LABS: Alanine Aminotransferase 88 IU/L (<35); Albumin 3.8 g/dL (3.5-5.0); Albumin Globulin Ratio 1.7 (1.0-2.8); Alkaline Phosphatase 118 U/L (38-126); Aspartate Aminotransferase 274 IU/L (14-36); Bilirubin Total 0.7 mg/dL (0.2-1.3); Bilirubin Unconjugated 0.7 mg/dL (0.0-1.1); Blood Urea Nitrogen 6 mg/dL (7-17); Calcium 9.5 mg/dL (8.4-10.2); Carbon Dioxide 24 mmol/L (22-32); Chloride 103 mmol/L (98-107); Estimated Glomerular Filt Rate > 60.0 mL/min (>60); Globulin 2.3 g/dL (1.7-4.1); Glucose 94 mg/dL (70-100); HEMOLYSIS < 15 (0-50); Magnesium 1.8 mg/dL (1.6-2.3); Phosphorous 4.3 mg/dL (2.5-4.5); Potassium 3.8 mmol/L (3.4-5.1); Sodium 134 mmol/L (137-145); Total Protein 6.1 g/dL (6.3-8.2)
[2019-12-14 06:31] LABS: Add Manual Diff / Slide Review NO; Basophils Absolute Auto 0 /uL (0-100); Basophils Percent Auto 1.1 % (0-2); Eosinophils Absolute Auto 100 /uL (0-450); Eosinophils Percent Auto 2.1 % (2-4); Hematocrit 30.1 % (36-46); Hemoglobin 10.1 g/dL (12.0-16.0); Lymphocytes Absolute Auto 400 /uL (1100-4500); Lymphocytes Percent Auto 9.1 % (25-40); Mean Corpuscular HGB Conc 33.7 % (30-36); Mean Corpuscular Hemoglobin 35.8 PG (26-34); Mean Corpuscular Volume 106.2 fL (80-100); Monocytes Absolute Auto 300 /uL (0-900); Monocytes Percent Auto 6.7 % (3-14); Neutrophils Absolute Auto 3600 /uL (1500-7000); Platelet Count 91 X10^3/uL (150-400); Red Blood Cell Count 2.83 X10^6/uL (4.0-5.2); Red Cell Distribution Width 15.4 % (11.6-14.8); White Blood Cell Count 4.4 X10^3/uL (4.5-11.0)
--- NOTE | 2019-12-14 07:44 | DI.US.S_ITS ---
PROCEDURE: US ABDOMEN LIMITED INDICATIONS: ETOH, HEPATITIS TECHNIQUE: Real-time focused scanning was performed of the abdomen, with image documentation. COMPARISON: [facility], CT, CT ABDOMEN PELVIS WO CON, 12/11/2019, 12:16. FINDINGS: The liver demonstrates normal size. The liver demonstrates generalized increased echogenicity. This decreases ultrasound sensitivity for detection of hepatic masses. No findings of gallstones or sludge are seen. The gallbladder wall is not thickened, measuring 3 mm or less. No specific pericholecystic fluid is seen. The sonographic Viveros sign is negative. There is no biliary dilatation, the common bile duct measures 6 mm. No significant pancreatic abnormality is seen on these images. IMPRESSION: The liver demonstrates increased echogenicity. This finding is nonspecific, yet it is most commonly attributed to fatty infiltration. The gallbladder demonstrates a normal sonographic appearance. No biliary dilatation is seen. Dictated by: Hakan Reilly M.D. on 12/14/2019 at 8:11 Approved by: Hakan Reilly M.D. on 12/14/2019 at 8:12
--- NOTE | 2019-12-14 08:50 | PC.NURSE ---
Day shift: Introduced myself this am and Pt was not pleasant. Pt acting upset with the care she is getting. Complained about hundreds of bags of IV fluid and now I have to void all the time. Pt also reported that she hasn't had a BM in 2 weeks because she hasn't been eating. Also presented very annoyed with the nursing questions. Sitting at side of bed eating breakfast. Goes by Cait. Call light in reach. Bed alarm is on. Call light in reach. Pt agrees to not get OOB w/o help from staff. She stated I know the routine.
[2019-12-14] MEDS: polyethylene glycoL 3350 17 GM POWD.PACK PO (09:35)
[2019-12-14] MEDS: MULTIVITAMIN 1 TABLET 1 TAB PO (09:35)
[2019-12-14] MEDS: FOLIC ACID 1 MG TABLET PO (09:35)
[2019-12-14] MEDS: THIAMINE 100 MG TABLET PO (09:35)
[2019-12-14] MEDS: HEPARIN 5,000 UNIT/ML VIAL 5000 UNIT SUBCUT ×2 (09:37→22:05)
[2019-12-14] MEDS: GABAPENTIN 100 MG CAPSULE 400 MG PO ×2 (09:37→13:44)
[2019-12-14] MEDS: SODIUM CHLORIDE 0.9% FLUSH 10 ML IV ×2 (09:38→22:05)
--- NOTE | 2019-12-14 10:25 | PC.NURSE ---
Day shift: Per Dr Valenzuela tele d/c'd at this time. Pt denies any chest pain. VS WNL.
--- NOTE | 2019-12-14 11:25 | CM.SWNOTE ---
TEACHER INDUSTRIAL ARTS Note Patient discussed in multidisciplinary rounds. Patient requesting limited visitors today, requesting to sleep. Dr Valenzuela indicates to this TEACHER INDUSTRIAL ARTS that patient agreeable to inpatient [facility] treatment and this was the goal upon admission for detox from ETOH Re: inpatient placement efforts, this TEACHER INDUSTRIAL ARTS considering that with patient's [employer] insurance, a pre-authorization request will be needed for a D/A assessment, which will be required to secure a spot at an inpatient [facility] treatment stay. Met w/patient this morning; patient immediately says Not now this TEACHER INDUSTRIAL ARTS used soft voice, taking time to speak w/patient (as RN had suggested) explained that efforts to secure inpatient [facility] treatment need to begin today. Patient states I'm not going anywhere, I am going home w/my son. They don't drink and don't allow any drinking Left room at that time as patient had her head under her pillow and was not interested in talking further. Updated Dr Valenzuela and suggested TEACHER INDUSTRIAL ARTS team follow and suggest outpt resources upon patient's discharge. SAMI Moscoso
[2019-12-14] MEDS: chlordiazePOXIDE 25 MG CAPSULE 50 MG PO ×3 (11:38→23:57)
[2019-12-14] MEDS: OXYCODONE IR 5 MG TABLET 2.5 MG PO (12:53)
[2019-12-14] MEDS: OXYCODONE IR 5 MG TABLET PO (13:43)
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
[2019-12-14] MEDS: GABAPENTIN 400 MG CAPSULE PO (22:05)
[2019-12-15] MEDS: OXYCODONE IR 5 MG TABLET PO (00:02)
[2019-12-15 03:00] VITALS: BP 137/76; PULSE 96; RESP 18; TEMP 36.7
[2019-12-15] MEDS: LORazepam 1 MG TABLET PO (05:18)
[2019-12-15] MEDS: chlordiazePOXIDE 25 MG CAPSULE 50 MG PO (05:49)
[2019-12-15 05:50] VITALS: BP 137/76; PULSE 96; RESP 16
[2019-12-15 06:36] LABS: Hepatitis B Core Antibody Negative (Negative)
[2019-12-15 07:00] VITALS: BP 126/75; PULSE 84; RESP 14; TEMP 36.6; O2SAT 97
--- NOTE | 2019-12-15 08:52 | CM.SWNOTE ---
Addendum entered by SAMI Moscoso 12/15/19 11:03: JUAN ANTONIO Champagne requested brochures for both grief support services and outpt counseling/drug treatment options. Mahi has formed a good rapport with patient and feels patient might be open to her providing these resources today upon DC. [facility] grief support services and [facility] center in [place]. Also provided brochure for [facility] and [facility]. Patient plans to stay w/her son for at least a few days. JW Original Note: DC Note According to JUAN ANTONIO Valdez, Dr Mata has discharged patient, patient is getting dressed and packed to leave, Courtney asking if this RETAIL PARTS PRO needs to address anything with patient before she leaves ? This RETAIL PARTS PRO suggests that patient be offered this RETAIL PARTS PRO's services, although based on conversation w/patient yesterday and her eagerness to leave this AM, patient likely to refuse treatment resources. Courtney agreeable to alerting this RETAIL PARTS PRO if needs/questions/concerns arise JW
--- NOTE | 2019-12-15 09:18 | PC.NURSE ---
Addendum entered by Mahi Daniels R.N. 12/15/19 11:05: Spoke at length with patient before discharge. Gave patient education material on Alcohol Abuse, Fall Risk and Colitis. Patient was very receptive to continuing care via a PCP and seeking help from a local grief counseling and substance abuse facility. This RN spoke with FLOUR BLENDER about possible facilities and the provided resources were then given to the patient. Patient appears in better spirits, is calm and is optimistic about seeking help. IV removed, patient tolerated well, medications passed, patient denied pain, boot on LLE. Belongings gathered and patient discharged via wheelchair. Original Note: At 0840 patients bed alarm went off. Patient was dressing herself The doctor is discharging me so I don't need that anymore. Patient appeared unsteady on her feet due to the boot on her LLE. This nurse attempted to have patient sit back down to steady herself and help her get dressed. Patient was very vocal about not wanting help. This nurse requested the aide remain with patient while patient dressed herself. Patient refusing alarm and noncompliant regarding ambulation assistance, I don't need your help if I'm going home anyway. Belongings placed close to patient. Reinforced to patient her fall risk and asked her to call us if she is standing up.
[2019-12-15] MEDS: GABAPENTIN 400 MG CAPSULE PO (10:07)
[2019-12-15] MEDS: FOLIC ACID 1 MG TABLET PO (10:07)
[2019-12-15] MEDS: MULTIVITAMIN 1 TABLET 1 TAB PO (10:07)
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
[2019-12-15 18:34] LABS: Hep C Virus Ab w/Reflex Quant NEGATIVE s/c (NEGATIVE); Hepatitis B Surface Antigen NEGATIVE s/c (NEGATIVE)
[2019-12-17 09:18] LABS: Hepatitis B Surf Ab Qualitativ Non Reactive (.)
== END 2019-12-15 11:41 | disposition home or self-care (01) | DRG 897 ==
LOC: ED 09:53 → AC 13:26 → ICU 14:00 → AC 12-14 14:58
PROVIDERS: Admitting Provider Internal Medicine; Emergency Provider Emergency Medicine; PCP General Practice; Referring Provider Emergency Medicine; Visit Provider Internal Medicine
DX: F10.230 Alcohol dependence with withdrawal, uncomplicated (principal); K70.10 Alcoholic hepatitis without ascites; Y90.8 Blood alcohol level of 240 mg/100 ml or more; K52.89 Other specified noninfective gastroenteritis and colitis; F32.89 Other specified depressive episodes; F17.210 Nicotine dependence, cigarettes, uncomplicated; S93.402D Sprain of unspecified ligament of left ankle, subsequent encounter
CPT/HCPCS: 36415; 36592; 71045; 73620; 74176; 76705; 80048; 80053; 80076; 80305; 80320; 81001; 82009; 83605; 83690; 83735; 84100; 84145; 84439; 84443; 85025; 85610; 85730; 86704; 86706; 86803; 87040; 87340; 87635; 87797; 93005; 93010; 96361; 96365; 96375; 96376; 97162; 99284; J1644; J1885; J2060; J2405; J2560; J3475

== ENCOUNTER 2019-12-22 23:05 | Emergency (ER) | payer OTHER, SELFPAY ==
[2019-12-11 15:54] VITALS: BMI 21.2
--- NOTE | 2019-12-22 23:08 | DI.CT.S_ITS ---
PROCEDURE: CT HEAD/BRAIN WO CON INDICATIONS: AMS TECHNIQUE: Noncontrast 4.5 mm thick angled axial sections acquired from the foramen magnum to the vertex, with coronal and sagittal reformats. For radiation dose reduction, the following was used: automated exposure control, adjustment of mA and/or kV according to patient size. COMPARISON: [facility], CT, CT HEAD/BRAIN WO CON, 08/13/2019, 16:42. FINDINGS: Image quality: Excellent. CSF spaces: Basal cisterns are patent. No extra-axial fluid collections. Ventricles are normal in size and shape. Brain: No midline shift. No intracranial masses or hemorrhage. Read-white matter interface is normal. Skull and face: Calvarium and visualized facial bones are intact, without suspicious lesions. Sinuses: Visualized sinuses and mastoids are clear. IMPRESSION: No acute intracranial abnormality. Concordant with preliminary interpretation. Dictated by: Rogelio Yu M.D. on 12/23/2019 at 8:54 Approved by: Rogelio Yu M.D. on 12/23/2019 at 8:55
--- NOTE | 2019-12-22 23:10 | DI.CT.S_ITS ---
PROCEDURE: CT CERVICAL SPINE WO CON INDICATIONS: unwitnessed fall TECHNIQUE: Noncontrast 3 mm thick sections acquired from the skull base to the T4 level. Sagittal and coronal reformats were then constructed. For radiation dose reduction, the following was used: automated exposure control, adjustment of mA and/or kV according to patient size. COMPARISON: [facility], CT, CT CERVICAL SPINE WO CON, 08/13/2019, 16:42. FINDINGS: Image quality: Excellent. Bones: No fractures or dislocations. Visualized superior ribs are intact. Soft tissues: Prevertebral soft tissues are normal in thickness. No paravertebral hematomas. No apical pneumothoraces. IMPRESSION: No fracture. Concordant with preliminary interpretation. Dictated by: Rogelio Yu M.D. on 12/23/2019 at 8:55 Approved by: Rogelio Yu M.D. on 12/23/2019 at 8:57
--- NOTE | 2019-12-22 23:13 | ED_ITS ---
HPI - General Adult <Cristian Grover DO - Last Filed: 12/23/19 23:53> General Chief complaint: Neuro Symptoms/Deficit Stated complaint: Altered Mental Status Time Seen by Provider: 12/22/19 23:06 Source: EMS Mode of arrival: EMS Limitations: altered mental status History of Present Illness HPI narrative: [age] arrived by EMS for altered mental status. Patient is unable to provide any HPI or review of systems. EMS reports that they were called by the patient's son. He is at bedside. He states that his mother has been staying at a hotel. He has been checking on her multiple times a day for the past several days/weeks. He states that this evening he came over to check on his mother and found her lying on the ground. It is known that she has a seizure disorder. Unknown if she is on any anti seizure medications. Is also known that the patient has a alcohol use. EMS states that the patient smelled like alcohol and there was alcohol in the apartment and around the individual. He did appear that she fell and hit her head. She arrived not on a backboard not in a cervical collar. Unknown amount of time the patient has been on the ground although it seems to be unlikely that it was more than several hours. Related Data Home Medications Medication Instructions Recorded Confirmed No Known Home Medications 12/11/19 12/11/19 Allergies Allergy/AdvReac Type Severity Reaction Status Date / Time iodine Allergy Verified 12/11/19 09:46 Review of Systems <DO Yoselyn Martinez Last Filed: 12/23/19 23:53> Review of Systems ROS Unobtainable: Unobtainable due to mental status/LOC Patient History <DO Yoselyn Martinez Last Filed: 12/23/19 23:53> Medical History Alcohol abuse (Inactive) No significant medical problems (Acute) Social History household members: none Smoking Status: Current every day smoker Exam <Cristian Grover DO - Last Filed: 12/23/19 23:53> Initial Vital Signs Initial Vital Signs: Vital Signs Pulse Rate 97 H 12/22/19 23:14 Respiratory Rate 21 12/22/19 23:14 Pulse Oximetry 93 12/22/19 23:14 Const General: disheveled Limitations: altered mental status HENVT Head: abrasion (Above left eye) and No palpable skull fracture Nose: external nose normal Face and sinus: normal facial exam Eyes Pupils: PERRL Resp Effort & Inspection: normal respiratory effort Auscultation: clear to auscultation bilaterally Cardio Rate: regular rate Rhythm: regular rhythm GI Inspection: non-distended Palpation: soft Skin Other: Abrasion above the left eye Neuro Other: Patient did spontaneously move all 4 extremities and did groan and moan will however when not follow specific directions. Extrem General: capillary refill normal Psych Appearance: disheveled <Sunny Watts MD - Last Filed: 12/23/19 17:02> Initial Vital Signs Initial Vital Signs: Vital Signs Pulse Rate 97 H 12/22/19 23:14 Respiratory Rate 21 12/22/19 23:14 Pulse Oximetry 93 12/22/19 23:14 Scores <Cristian Grover DO - Last Filed: 12/23/19 23:53> GCS Ridg[place] coma scale eye opening: Spontaneous Ronnie coma scale verbal response: Sounds Ronnie coma scale motor response: Localising Ronnie coma scale total score: 11 Course <Cristian Grover DO - Last Filed: 12/23/19 23:53> Orders Ordered: ED Orders 12/23/19 08:05 Ethanol (ETOH) Stat Vital Signs Vital signs: Vital Signs - 8 hr 12/23/19 03:30 12/23/19 07:40 12/23/19 07:42 Pulse Rate 90 88 80 Respiratory Rate 15 22 Blood Pressure 128/78 143/72 H Pulse Oximetry 95 98 <Sunny Watts MD - Last Filed: 12/23/19 17:02> Orders Ordered: ED Orders 12/23/19 08:05 Ethanol (ETOH) Stat Vital Signs Vital signs: Vital Signs - 8 hr 12/23/19 03:30 12/23/19 07:40 12/23/19 07:42 Pulse Rate 90 88 80 Respiratory Rate 15 22 Blood Pressure 128/78 143/72 H Pulse Oximetry 95 98 Medical Decision Making <DO Yoselyn Martinez Last Filed: 12/23/19 23:53> Medical Records Medical records reviewed: Yes I reviewed the patient's medical records. Lab Data Lab results reviewed: Yes I reviewed the patient's lab results. Result diagrams: 12/22/19 23:00 07/25/20 23:00 Labs: Lab Results 12/22/19 12/22/19 12/22/19 Range/Units 23:00 23:00 23:00 WBC 5.7 (4.5-11.0) X10^3/uL RBC 3.37 L (4.0-5.2) X10^6/uL Hgb 11.7 L (12.0-16.0) g/dL Hct 35.3 L (36-46) % MCV 104.7 H (80-100) fL MCH 34.6 H (26-34) PG MCHC 33.0 (30-36) % RDW 16.2 H (11.6-14.8) % Plt Count 504 H (150-400) X10^3/uL Neut % (Auto) 38.5 L (50-75) % Lymph % (Auto) 39.7 (25-40) % [place] % (Auto) 15.6 H (3-14) % Eos % (Auto) 3.1 (2-4) % Baso % (Auto) 3.1 H (0-2) % Neut # (Auto) 2200 (6482-1676) /uL Lymph # (Auto) 2300 (3511-6843) /uL Kitt[place] # (Auto) 900 (0-900) /uL Eos # (Auto) 200 (0-450) /uL Baso # (Auto) 200 H (0-100) /uL PT 10.8 (10.1-12.7) SECONDS INR 0.9 (0.9-1.3) APTT 32 D (26.4-36.2) SECONDS Sodium (137-145) mmol/L Potassium (3.4-5.1) mmol/L Chloride (98-107) mmol/L Carbon Dioxide (22-32) mmol/L BUN (7-17) mg/dL Creatinine (0.52-1.04) mg/dL Estimated GFR (>60) mL/min BUN/Creatinine Ratio (6-22) Glucose (70-100) mg/dL Lactate (0.7-2.1) mmol/L Calcium (8.4-10.2) mg/dL Total Bilirubin (0.2-1.3) mg/dL AST (14-36) IU/L ALT (<35) IU/L Alkaline Phosphatase (38-126) U/L Ammonia (9-30) umol/L Total Creatine Kinase (30-135) U/L Total Protein (6.3-8.2) g/dL Albumin (3.5-5.0) g/dL Globulin (1.7-4.1) g/dL Albumin/Globulin Ratio (1.0-2.8) Lipase (23-300) U/L Procalcitonin < 0.05 (<0.5) ng/mL Prolactin (3.0-18.6) ng/mL Serum , Qual Negative (Negative) Salicylates (<20) mg/dL U Opiates 300ng/mL cut (Negative) Ur Oxycodone Screen (Negative) Urine Methadone Screen (Negative) Acetaminophen (10-30) ug/mL Ur Barbiturates Screen (Negative) U Tricyclic Antidepress (Negative) Ur Phencyclidine Scrn (Negative) Ur Amphetamines Screen (Negative) U Methamphetamines Scrn (Negative) Ur MDMA Scrn (Ecstasy) (Negative) U Benzodiazepines Scrn (Negative) Urine Cocaine Screen (Negative) U Marijuana (THC) Screen (Negative) Ethyl Alcohol ( - 10) mg/dL 12/22/19 12/22/19 12/22/19 Range/Units 23:00 23:00 23:00 WBC (4.5-11.0) X10^3/uL RBC (4.0-5.2) X10^6/uL Hgb (12.0-16.0) g/dL Hct (36-46) % MCV (80-100) fL MCH (26-34) PG MCHC (30-36) % RDW (11.6-14.8) % Plt Count (150-400) X10^3/uL Neut % (Auto) (50-75) % Lymph % (Auto) (25-40) % Kitt[place] % (Auto) (3-14) % Eos % (Auto) (2-4) % Baso % (Auto) (0-2) % Neut # (Auto) (6702-0957) /uL Lymph # (Auto) (3776-8164) /uL Kitt[place] # (Auto) (0-900) /uL Eos # (Auto) (0-450) /uL Baso # (Auto) (0-100) /uL PT (10.1-12.7) SECONDS INR (0.9-1.3) APTT (26.4-36.2) SECONDS Sodium 143 (137-145) mmol/L Potassium 3.2 L (3.4-5.1) mmol/L Chloride 106 (98-107) mmol/L Carbon Dioxide 23 (22-32) mmol/L BUN 6 L (7-17) mg/dL Creatinine 0.47 L (0.52-1.04) mg/dL Estimated GFR > 60.0 (>60) mL/min BUN/Creatinine Ratio 12.8 (6-22) Glucose 108 H (70-100) mg/dL Lactate (0.7-2.1) mmol/L Calcium 9.3 (8.4-10.2) mg/dL Total Bilirubin 0.5 (0.2-1.3) mg/dL AST 152 H (14-36) IU/L ALT 101 H (<35) IU/L Alkaline Phosphatase 108 (38-126) U/L Ammonia (9-30) umol/L Total Creatine Kinase 160 H (30-135) U/L Total Protein 7.3 (6.3-8.2) g/dL Albumin 4.5 (3.5-5.0) g/dL Globulin 2.8 (1.7-4.1) g/dL Albumin/Globulin Ratio 1.6 (1.0-2.8) Lipase 652 H (23-300) U/L Procalcitonin (<0.5) ng/mL Prolactin 32.6 H (3.0-18.6) ng/mL Serum , Qual (Negative) Salicylates 1.0 (<20) mg/dL U Opiates 300ng/mL cut (Negative) Ur Oxycodone Screen (Negative) Urine Methadone Screen (Negative) Acetaminophen < 10 L (10-30) ug/mL Ur Barbiturates Screen (Negative) U Tricyclic Antidepress (Negative) Ur Phencyclidine Scrn (Negative) Ur Amphetamines Screen (Negative) U Methamphetamines Scrn (Negative) Ur MDMA Scrn (Ecstasy) (Negative) U Benzodiazepines Scrn (Negative) Urine Cocaine Screen (Negative) U Marijuana (THC) Screen (Negative) Ethyl Alcohol 555 H* ( - 10) mg/dL 12/22/19 12/22/19 12/22/19 Range/Units 23:33 23:33 23:44 WBC (4.5-11.0) X10^3/uL RBC (4.0-5.2) X10^6/uL Hgb (12.0-16.0) g/dL Hct (36-46) % MCV (80-100) fL MCH (26-34) PG MCHC (30-36) % RDW (11.6-14.8) % Plt Count (150-400) X10^3/uL Neut % (Auto) (50-75) % Lymph % (Auto) (25-40) % Kitt[place] % (Auto) (3-14) % Eos % (Auto) (2-4) % Baso % (Auto) (0-2) % Neut # (Auto) (5279-7334) /uL Lymph # (Auto) (4101-3046) /uL Kitt[place] # (Auto) (0-900) /uL Eos # (Auto) (0-450) /uL Baso # (Auto) (0-100) /uL PT (10.1-12.7) SECONDS INR (0.9-1.3) APTT (26.4-36.2) SECONDS Sodium (137-145) mmol/L Potassium (3.4-5.1) mmol/L Chloride (98-107) mmol/L Carbon Dioxide (22-32) mmol/L BUN (7-17) mg/dL Creatinine (0.52-1.04) mg/dL Estimated GFR (>60) mL/min BUN/Creatinine Ratio (6-22) Glucose (70-100) mg/dL Lactate 2.5 H (0.7-2.1) mmol/L Calcium (8.4-10.2) mg/dL Total Bilirubin (0.2-1.3) mg/dL AST (14-36) IU/L ALT (<35) IU/L Alkaline Phosphatase (38-126) U/L Ammonia < 9 L (9-30) umol/L Total Creatine Kinase (30-135) U/L Total Protein (6.3-8.2) g/dL Albumin (3.5-5.0) g/dL Globulin (1.7-4.1) g/dL Albumin/Globulin Ratio (1.0-2.8) Lipase (23-300) U/L Procalcitonin (<0.5) ng/mL Prolactin (3.0-18.6) ng/mL Serum , Qual (Negative) Salicylates (<20) mg/dL U Opiates 300ng/mL cut Negative (Negative) Ur Oxycodone Screen Negative (Negative) Urine Methadone Screen Negative (Negative) Acetaminophen (10-30) ug/mL Ur Barbiturates Screen Negative (Negative) U Tricyclic Antidepress Negative (Negative) Ur Phencyclidine Scrn Negative (Negative) Ur Amphetamines Screen Negative (Negative) U Methamphetamines Scrn Negative (Negative) Ur MDMA Scrn (Ecstasy) Negative (Negative) U Benzodiazepines Scrn Positive H (Negative) Urine Cocaine Screen Negative (Negative) U Marijuana (THC) Screen Negative (Negative) Ethyl Alcohol ( - 10) mg/dL 12/23/19 12/23/19 Range/Units 02:09 08:05 WBC (4.5-11.0) X10^3/uL RBC (4.0-5.2) X10^6/uL Hgb (12.0-16.0) g/dL Hct (36-46) % MCV (80-100) fL MCH (26-34) PG MCHC (30-36) % RDW (11.6-14.8) % Plt Count (150-400) X10^3/uL Neut % (Auto) (50-75) % Lymph % (Auto) (25-40) % Kitt[place] % (Auto) (3-14) % Eos % (Auto) (2-4) % Baso % (Auto) (0-2) % Neut # (Auto) (1492-0460) /uL Lymph # (Auto) (5475-1102) /uL Kitt[place] # (Auto) (0-900) /uL Eos # (Auto) (0-450) /uL Baso # (Auto) (0-100) /uL PT (10.1-12.7) SECONDS INR (0.9-1.3) APTT (26.4-36.2) SECONDS Sodium (137-145) mmol/L Potassium (3.4-5.1) mmol/L Chloride (98-107) mmol/L Carbon Dioxide (22-32) mmol/L BUN (7-17) mg/dL Creatinine (0.52-1.04) mg/dL Estimated GFR (>60) mL/min BUN/Creatinine Ratio (6-22) Glucose (70-100) mg/dL Lactate 2.7 H (0.7-2.1) mmol/L Calcium (8.4-10.2) mg/dL Total Bilirubin (0.2-1.3) mg/dL AST (14-36) IU/L ALT (<35) IU/L Alkaline Phosphatase (38-126) U/L Ammonia (9-30) umol/L Total Creatine Kinase (30-135) U/L Total Protein (6.3-8.2) g/dL Albumin (3.5-5.0) g/dL Globulin (1.7-4.1) g/dL Albumin/Globulin Ratio (1.0-2.8) Lipase (23-300) U/L Procalcitonin (<0.5) ng/mL Prolactin (3.0-18.6) ng/mL Serum , Qual (Negative) Salicylates (<20) mg/dL U Opiates 300ng/mL cut (Negative) Ur Oxycodone Screen (Negative) Urine Methadone Screen (Negative) Acetaminophen (10-30) ug/mL Ur Barbiturates Screen (Negative) U Tricyclic Antidepress (Negative) Ur Phencyclidine Scrn (Negative) Ur Amphetamines Screen (Negative) U Methamphetamines Scrn (Negative) Ur MDMA Scrn (Ecstasy) (Negative) U Benzodiazepines Scrn (Negative) Urine Cocaine Screen (Negative) U Marijuana (THC) Screen (Negative) Ethyl Alcohol 261 H ( - 10) mg/dL Imaging Data CT scan - head: Radiologist's Impression: No acute disease of the brain CT - cervical spine: Radiologist's Impression: No acute disease of the cervical spine ECG Data Attestation: I personally reviewed and interpreted this ECG as follows: Prior ECG tracings: not available for review Interpretation: Sinus rhythm Ventricular rate of 95 QRS duration 112 milliseconds QTC is unremarkable, no ST T wave changes MDM Narrative Medical decision making narrative: Head CT and cervical spine CT unremarkable. Patient does have a severely elevated alcohol level. I suspect that her symptoms are all related to this. During her stay here in the emergency department she did become more alert and talking. She states that she knew that she was in the hospital. She did become somewhat belligerent asking about a cell phone which we were unable to locate in her room and we doubt she came to the emergency department with a cell phone. We tried multiple times to tell her this. She still became more belligerent and at 1 point states ?I am going to kill somebody ?I became involved with the situation. I informed the patient that we take threats like this very seriously. I informed her that her alcohol level was severely elevated and that she could not leave because of this. Informed her that her son was not here currently to take her home and even if he was I was uncomfortable sending her home because of this. Informed her that she needed to lay down and sleep here in the emergency department. After this conversation she became much more calm and slept. Care turned over to Dr. Watts at change of shift to follow up and disposition. <Sunny Watts MD - Last Filed: 12/23/19 17:02> Lab Data Labs: Lab Results 12/22/19 12/22/19 12/22/19 Range/Units 23:00 23:00 23:00 WBC 5.7 (4.5-11.0) X10^3/uL RBC 3.37 L (4.0-5.2) X10^6/uL Hgb 11.7 L (12.0-16.0) g/dL Hct 35.3 L (36-46) % MCV 104.7 H (80-100) fL MCH 34.6 H (26-34) PG MCHC 33.0 (30-36) % RDW 16.2 H (11.6-14.8) % Plt Count 504 H (150-400) X10^3/uL Neut % (Auto) 38.5 L (50-75) % Lymph % (Auto) 39.7 (25-40) % Kitt[place] % (Auto) 15.6 H (3-14) % Eos % (Auto) 3.1 (2-4) % Baso % (Auto) 3.1 H (0-2) % Neut # (Auto) 2200 (4968-9455) /uL Lymph # (Auto) 2300 (9567-9642) /uL Kitt[place] # (Auto) 900 (0-900) /uL Eos # (Auto) 200 (0-450) /uL Baso # (Auto) 200 H (0-100) /uL PT 10.8 (10.1-12.7) SECONDS INR 0.9 (0.9-1.3) APTT 32 D (26.4-36.2) SECONDS Sodium (137-145) mmol/L Potassium (3.4-5.1) mmol/L Chloride (98-107) mmol/L Carbon Dioxide (22-32) mmol/L BUN (7-17) mg/dL Creatinine (0.52-1.04) mg/dL Estimated GFR (>60) mL/min BUN/Creatinine Ratio (6-22) Glucose (70-100) mg/dL Lactate (0.7-2.1) mmol/L Calcium (8.4-10.2) mg/dL Total Bilirubin (0.2-1.3) mg/dL AST (14-36) IU/L ALT (<35) IU/L Alkaline Phosphatase (38-126) U/L Ammonia (9-30) umol/L Total Creatine Kinase (30-135) U/L Total Protein (6.3-8.2) g/dL Albumin (3.5-5.0) g/dL Globulin (1.7-4.1) g/dL Albumin/Globulin Ratio (1.0-2.8) Lipase (23-300) U/L Procalcitonin < 0.05 (<0.5) ng/mL Prolactin (3.0-18.6) ng/mL Serum , Qual Negative (Negative) Salicylates (<20) mg/dL U Opiates 300ng/mL cut (Negative) Ur Oxycodone Screen (Negative) Urine Methadone Screen (Negative) Acetaminophen (10-30) ug/mL Ur Barbiturates Screen (Negative) U Tricyclic Antidepress (Negative) Ur Phencyclidine Scrn (Negative) Ur Amphetamines Screen (Negative) U Methamphetamines Scrn (Negative) Ur MDMA Scrn (Ecstasy) (Negative) U Benzodiazepines Scrn (Negative) Urine Cocaine Screen (Negative) U Marijuana (THC) Screen (Negative) Ethyl Alcohol ( - 10) mg/dL 12/22/19 12/22/1920 Range/Units 23:00 23:00 23:00 WBC (4.5-11.0) X10^3/uL RBC (4.0-5.2) X10^6/uL Hgb (12.0-16.0) g/dL Hct (36-46) % MCV (80-100) fL MCH (26-34) PG MCHC (30-36) % RDW (11.6-14.8) % Plt Count (150-400) X10^3/uL Neut % (Auto) (50-75) % Lymph % (Auto) (25-40) % Kitt[place] % (Auto) (3-14) % Eos % (Auto) (2-4) % Baso % (Auto) (0-2) % Neut # (Auto) (2817-9980) /uL Lymph # (Auto) (3993-1058) /uL Kitt[place] # (Auto) (0-900) /uL Eos # (Auto) (0-450) /uL Baso # (Auto) (0-100) /uL PT (10.1-12.7) SECONDS INR (0.9-1.3) APTT (26.4-36.2) SECONDS Sodium 143 (137-145) mmol/L Potassium 3.2 L (3.4-5.1) mmol/L Chloride 106 (98-107) mmol/L Carbon Dioxide 23 (22-32) mmol/L BUN 6 L (7-17) mg/dL Creatinine 0.47 L (0.52-1.04) mg/dL Estimated GFR > 60.0 (>60) mL/min BUN/Creatinine Ratio 12.8 (6-22) Glucose 108 H (70-100) mg/dL Lactate (0.7-2.1) mmol/L Calcium 9.3 (8.4-10.2) mg/dL Total Bilirubin 0.5 (0.2-1.3) mg/dL AST 152 H (14-36) IU/L ALT 101 H (<35) IU/L Alkaline Phosphatase 108 (38-126) U/L Ammonia (9-30) umol/L Total Creatine Kinase 160 H (30-135) U/L Total Protein 7.3 (6.3-8.2) g/dL Albumin 4.5 (3.5-5.0) g/dL Globulin 2.8 (1.7-4.1) g/dL Albumin/Globulin Ratio 1.6 (1.0-2.8) Lipase 652 H (23-300) U/L Procalcitonin (<0.5) ng/mL Prolactin 32.6 H (3.0-18.6) ng/mL Serum , Qual (Negative) Salicylates 1.0 (<20) mg/dL U Opiates 300ng/mL cut (Negative) Ur Oxycodone Screen (Negative) Urine Methadone Screen (Negative) Acetaminophen < 10 L (10-30) ug/mL Ur Barbiturates Screen (Negative) U Tricyclic Antidepress (Negative) Ur Phencyclidine Scrn (Negative) Ur Amphetamines Screen (Negative) U Methamphetamines Scrn (Negative) Ur MDMA Scrn (Ecstasy) (Negative) U Benzodiazepines Scrn (Negative) Urine Cocaine Screen (Negative) U Marijuana (THC) Screen (Negative) Ethyl Alcohol 555 H* ( - 10) mg/dL 12/22/19 12/22/19 12/22/19 Range/Units 23:33 23:33 23:44 WBC (4.5-11.0) X10^3/uL RBC (4.0-5.2) X10^6/uL Hgb (12.0-16.0) g/dL Hct (36-46) % MCV (80-100) fL MCH (26-34) PG MCHC (30-36) % RDW (11.6-14.8) % Plt Count (150-400) X10^3/uL Neut % (Auto) (50-75) % Lymph % (Auto) (25-40) % Kitt[place] % (Auto) (3-14) % Eos % (Auto) (2-4) % Baso % (Auto) (0-2) % Neut # (Auto) (4490-1983) /uL Lymph # (Auto) (4032-7362) /uL Kitt[place] # (Auto) (0-900) /uL Eos # (Auto) (0-450) /uL Baso # (Auto) (0-100) /uL PT (10.1-12.7) SECONDS INR (0.9-1.3) APTT (26.4-36.2) SECONDS Sodium (137-145) mmol/L Potassium (3.4-5.1) mmol/L Chloride (98-107) mmol/L Carbon Dioxide (22-32) mmol/L BUN (7-17) mg/dL Creatinine (0.52-1.04) mg/dL Estimated GFR (>60) mL/min BUN/Creatinine Ratio (6-22) Glucose (70-100) mg/dL Lactate 2.5 H (0.7-2.1) mmol/L Calcium (8.4-10.2) mg/dL Total Bilirubin (0.2-1.3) mg/dL AST (14-36) IU/L ALT (<35) IU/L Alkaline Phosphatase (38-126) U/L Ammonia < 9 L (9-30) umol/L Total Creatine Kinase (30-135) U/L Total Protein (6.3-8.2) g/dL Albumin (3.5-5.0) g/dL Globulin (1.7-4.1) g/dL Albumin/Globulin Ratio (1.0-2.8) Lipase (23-300) U/L Procalcitonin (<0.5) ng/mL Prolactin (3.0-18.6) ng/mL Serum , Qual (Negative) Salicylates (<20) mg/dL U Opiates 300ng/mL cut Negative (Negative) Ur Oxycodone Screen Negative (Negative) Urine Methadone Screen Negative (Negative) Acetaminophen (10-30) ug/mL Ur Barbiturates Screen Negative (Negative) U Tricyclic Antidepress Negative (Negative) Ur Phencyclidine Scrn Negative (Negative) Ur Amphetamines Screen Negative (Negative) U Methamphetamines Scrn Negative (Negative) Ur MDMA Scrn (Ecstasy) Negative (Negative) U Benzodiazepines Scrn Positive H (Negative) Urine Cocaine Screen Negative (Negative) U Marijuana (THC) Screen Negative (Negative) Ethyl Alcohol ( - 10) mg/dL 12/23/19 12/23/19 Range/Units 02:09 08:05 WBC (4.5-11.0) X10^3/uL RBC (4.0-5.2) X10^6/uL Hgb (12.0-16.0) g/dL Hct (36-46) % MCV (80-100) fL MCH (26-34) PG MCHC (30-36) % RDW (11.6-14.8) % Plt Count (150-400) X10^3/uL Neut % (Auto) (50-75) % Lymph % (Auto) (25-40) % Kitt[place] % (Auto) (3-14) % Eos % (Auto) (2-4) % Baso % (Auto) (0-2) % Neut # (Auto) (1161-6340) /uL Lymph # (Auto) (9935-8437) /uL [place] # (Auto) (0-900) /uL Eos # (Auto) (0-450) /uL Baso # (Auto) (0-100) /uL PT (10.1-12.7) SECONDS INR (0.9-1.3) APTT (26.4-36.2) SECONDS Sodium (137-145) mmol/L Potassium (3.4-5.1) mmol/L Chloride (98-107) mmol/L Carbon Dioxide (22-32) mmol/L BUN (7-17) mg/dL Creatinine (0.52-1.04) mg/dL Estimated GFR (>60) mL/min BUN/Creatinine Ratio (6-22) Glucose (70-100) mg/dL Lactate 2.7 H (0.7-2.1) mmol/L Calcium (8.4-10.2) mg/dL Total Bilirubin (0.2-1.3) mg/dL AST (14-36) IU/L ALT (<35) IU/L Alkaline Phosphatase (38-126) U/L Ammonia (9-30) umol/L Total Creatine Kinase (30-135) U/L Total Protein (6.3-8.2) g/dL Albumin (3.5-5.0) g/dL Globulin (1.7-4.1) g/dL Albumin/Globulin Ratio (1.0-2.8) Lipase (23-300) U/L Procalcitonin (<0.5) ng/mL Prolactin (3.0-18.6) ng/mL Serum , Qual (Negative) Salicylates (<20) mg/dL U Opiates 300ng/mL cut (Negative) Ur Oxycodone Screen (Negative) Urine Methadone Screen (Negative) Acetaminophen (10-30) ug/mL Ur Barbiturates Screen (Negative) U Tricyclic Antidepress (Negative) Ur Phencyclidine Scrn (Negative) Ur Amphetamines Screen (Negative) U Methamphetamines Scrn (Negative) Ur MDMA Scrn (Ecstasy) (Negative) U Benzodiazepines Scrn (Negative) Urine Cocaine Screen (Negative) U Marijuana (THC) Screen (Negative) Ethyl Alcohol 261 H ( - 10) mg/dL Discharge Plan Departure Patient Disposition: Home Clinical Impression: Alcohol intoxication Qualifiers: Complication of substance-induced condition: with unspecified complication Qualified Code(s): F10.929 - Alcohol use, unspecified with intoxication, unspecified Discharge Date/Time: 12/23/19 09:18 Instructions: DI for Alcohol Use Disorder Activity Restrictions/Additional Instructions: 1. You can return to the emergency department any time for assistance for alcohol ingestion. 2. Follow-up with your primary care physician to be re-evaluated in 48-72 hours. 3. You are unable to drive a motor vehicle or operating any dangerous machinery for the next 24 hours. 4. If you develop persistent uncontrolled nausea vomiting, diarrhea, bloody stools, black stools, vomiting blood, chest pain, shortness of breath, feeling faint or passing-out you need to proceed to the nearest emergency department. Prescriptions: No Action No Known Home Medications RF: 0 <Sunny Watts MD - Last Filed: 12/23/19 17:02> [facility] ED Attending [facility] Attestation: [id number]: Report was provided by at the change of shift. The patient is a 48-year-old female who was initially found lying on the ground and transported by EMS to the emergency department. The patient had an altered mental status. CT of her head and neck were reported to have been normal. Her [place] coma Score on arrival was approximately 11-12. The patient was found to have mild lactic acidosis but her alcohol level was 555. The patient overheard the staff talking and screamed out that she did not want any rehab. The patient is currently been detoxified and awaiting a medical social work evaluation and consultation. The patient has a recent admission to the hospital for acute alcohol intoxication. 0825: At 08.05 the patient's repeat ETOH was 261. The patient is becoming arm combative, argumentative, and wants to leave against medical advice. Will call the patient's son in if he is willing to accept responsibility for her we will discharge her to his custody. The patient is much more awake and moving all 4 extremities. 0900: The patient was seen and evaluated by the medical records director. The patient does not want any help for rehabilitation. The patient's son is here to pick his mother up. The patient will be discharged. The patient is ambulatory moves all 4 extremities and is conversive cognizant and understands her discharge.
[2019-12-22 23:14] VITALS: PULSE 97; RESP 21; O2SAT 93
[2019-12-22 23:20] VITALS: BP 143/84; PULSE 100; RESP 14; TEMP 36.6; O2SAT 96
[2019-12-22 23:22] LABS: Add Manual Diff / Slide Review NO; Basophils Absolute Auto 200 /uL (0-100); Basophils Percent Auto 3.1 % (0-2); Eosinophils Absolute Auto 200 /uL (0-450); Eosinophils Percent Auto 3.1 % (2-4); Hematocrit 35.3 % (36-46); Hemoglobin 11.7 g/dL (12.0-16.0); Lymphocytes Absolute Auto 2300 /uL (1100-4500); Lymphocytes Percent Auto 39.7 % (25-40); Mean Corpuscular Hemoglobin 34.6 PG (26-34); Mean Corpuscular Volume 104.7 fL (80-100); Monocytes Absolute Auto 900 /uL (0-900); Monocytes Percent Auto 15.6 % (3-14); Neutrophils Absolute Auto 2200 /uL (1500-7000); Neutrophils Percent Auto 38.5 % (50-75); Platelet Count 504 X10^3/uL (150-400); Red Blood Cell Count 3.37 X10^6/uL (4.0-5.2); Red Cell Distribution Width 16.2 % (11.6-14.8); White Blood Cell Count 5.7 X10^3/uL (4.5-11.0)
[2019-12-22 23:26] LABS: INR 0.9 (0.9-1.3); Prothrombin Time 10.8 SECONDS (10.1-12.7)
[2019-12-22 23:29] LABS: PTT Partial Thromboplastin Tim 32 SECONDS (26.4-36.2)
[2019-12-22 23:33] VITALS: PULSE 97; O2SAT 95
[2019-12-22 23:33] LABS: Alanine Aminotransferase 101 IU/L (<35); Albumin 4.5 g/dL (3.5-5.0); Albumin Globulin Ratio 1.6 (1.0-2.8); Alkaline Phosphatase 108 U/L (38-126); Aspartate Aminotransferase 152 IU/L (14-36); BUN Creatinine Ratio 12.8 (6-22); Bilirubin Total 0.5 mg/dL (0.2-1.3); Blood Urea Nitrogen 6 mg/dL (7-17); Calcium 9.3 mg/dL (8.4-10.2); Carbon Dioxide 23 mmol/L (22-32); Chloride 106 mmol/L (98-107); Creatine Kinase 160 U/L (30-135); Estimated Glomerular Filt Rate > 60.0 mL/min (>60); Globulin 2.8 g/dL (1.7-4.1); Glucose 108 mg/dL (70-100); Lipase 652 U/L (23-300); Potassium 3.2 mmol/L (3.4-5.1); Sodium 143 mmol/L (137-145); Total Protein 7.3 g/dL (6.3-8.2)
[2019-12-22 23:43] LABS: HEMOLYSIS 23 (0-50); Pregnancy Test Serum,Qual Negative (Negative)
[2019-12-22 23:44] LABS: Acetaminophen < 10 ug/mL (10-30)
[2019-12-22 23:48] LABS: Ethanol (ETOH) 555 mg/dL
[2019-12-22 23:49] LABS: Procalcitonin < 0.05 ng/mL (<0.5)
[2019-12-22 23:56] LABS: Ammonia (NH3) < 9 umol/L (9-30)
[2019-12-22 23:57] LABS: Prolactin 32.6 ng/mL (3.0-18.6)
[2019-12-22 23:57] LABS: Lactate (Lactic Acid) 2.5 mmol/L (0.7-2.1)
[2019-12-23] LABS: UR Morphine/Opiate cutoff 300 Negative (Negative); Ur Creatinine Normal (Normal); Ur Specific Gravity Normal (Normal); Urine Amphetamines Negative (Negative); Urine Barbiturates Negative (Negative); Urine Benzodiazepines Positive (Negative); Urine Cocaine Negative (Negative); Urine MDMA Negative (Negative); Urine Methadone Negative (Negative); Urine Methamphetamines Negative (Negative); Urine Oxycodone Negative (Negative); Urine Phencyclidine Negative (Negative); Urine Tetrahydrocannabinol Negative (Negative); Urine Tricyclic Antidepressant Negative (Negative); Urine pH Normal (Normal)
[2019-12-23 01:42] LABS: Reflexed Lactate in 2 Hours Y
[2019-12-23 02:30] LABS: Lactate 2HR (Lactic Acid Rflx) 2.7 mmol/L (0.7-2.1)
[2019-12-23 03:30] VITALS: BP 128/78; PULSE 90; RESP 15; O2SAT 95
--- NOTE | 2019-12-23 05:35 | PC.NURSE ---
Pt had tried to get up to go to the bathroom and immediately fell to floor. Assessed for injuries. Pt asisted to w/c and into bathroom. Moved pt to view room. pt was fixated that phone had been left in previous room. Would not listen to staff that her phone was not in the room and was not brought to the hospital. No matter how much she was told she kept saying her phone was in the other room. This RN left the room and pt stated I'm going to fucking kill somebody Provider immediately into room after statement and told her if she continued to make threats the police would be called. Pt finally calmed down and laid back in bed.
[2019-12-23 07:40] VITALS: PULSE 88; RESP 22; O2SAT 98
[2019-12-23 07:42] VITALS: BP 143/72; PULSE 80
[2019-12-23 08:19] LABS: Ethanol (ETOH) 261 mg/dL
--- NOTE | 2019-12-23 08:39 | PC.NURSE ---
Discussed w/ patient the extent of her etoh intake. She refused offer of detox / assistance today. I encouraged her to return to department at any time if she wanted help. Discussed outcomes of etoh which include injury, organ damage up to . She verbalized understanding. Pt is a/o x 4.
--- NOTE | 2019-12-23 09:07 | CM.SWNOTE ---
TRAVEL CONSULTANT Note This TRAVEL CONSULTANT requested for consult to discuss detox/treatment options with this 48 yo female, found unresponsive at home, brought to the ED with BAL of 550. BAL down to approx 215 this AM. Patient familiar to this TRAVEL CONSULTANT from prior admission to the acute care floor approx one week ago. Patient had refused inpt and outpt [facility] treatment resources at that although RN was willing to offer brochures/contact numbers with DC instructions. Met w/patient at bedside. Patient sitting upright, makes good eye contact, shaky and tearful. Patient says I can't believe they're all fucking . Patient buried my sister yesterday and also recently lost her mom. Her last living sister also lives in [place], this TRAVEL CONSULTANT suggested close contact w/this sister to support each other through the grieving process. Patient agreed. Patient offers information about herself freely today, explains she didn't drink like this a year ago, states life stressors and in the family w/minimal coping skills lead to drinking alcohol heavily, this TRAVEL CONSULTANT suggests numerous people cope by self medicating with drugs and alcohol to deaden their feelings of grief and overwhelming desperation. Patient confirmed Patient admits to drinking vodka daily w/orange juice, amount not reported. Patient cannot remember the amount she drank last night, she cannot remember details of last night or coming in to the ED. This TRAVEL CONSULTANT then suggested that to process grief w/o use of drugs and alcohol a person requires assistance from trained MH/counseling and bereavement professionals. Encouraged patient to pick out hand the phone to contact [facility] an agency that provides [facility] w/bereavement services. Patient admits today she wants to stop drinking like this because it makes me feel like shit. Patient denies the need for outpt [facility] and/or housing or basic needs information/resources but appreciative for the conversation. Requests son Agusto be called to pick her up so she can get home. Placed call to son Agusto and he states he is on his way. Updated RN, no further intervention. Ange Palma, TRAVEL CONSULTANT
== END 2019-12-23 09:18 | disposition home or self-care (01) ==
PROVIDERS: Emergency Medicine; Emergency Provider Emergency Medicine; PCP General Practice
DX: F10.129 Alcohol abuse with intoxication, unspecified (principal); Y90.8 Blood alcohol level of 240 mg/100 ml or more; R41.82 Altered mental status, unspecified; W19.XXXA Unspecified fall, initial encounter; R07.9 Chest pain, unspecified
CPT/HCPCS: 36415; 70450; 72125; 80053; 80305; 80320; 80329; 82140; 82550; 83605; 83690; 84145; 84146; 84703; 85025; 85610; 85730; 93005; 99285; G0480

== ENCOUNTER 2020-04-14 19:19 | Emergency (ER) | payer OTHER, SELFPAY ==
[2019-12-11 15:54] VITALS: BMI 21.2
[2020-04-14 19:23] VITALS: BP 169/94; PULSE 87; RESP 20; TEMP 36.3; O2SAT 100
--- NOTE | 2020-04-14 20:01 | ED_ITS ---
HPI - Extremity Problem General Chief complaint: Extremity Problem,Nontraumatic Stated complaint: Leg And Foot Pain, Swollen Feet Time Seen by Provider: 04/14/20 19:55 Source: patient Mode of arrival: Wheelchair Limitations: no limitations History of Present Illness HPI Narrative: Patient is a 49-year-old female. 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 States she is not on any medications because she cannot afford her medicines. She does not have a primary doctor. Does not have insurance. Is homeless. Is here for evaluation of bilateral foot pain. She states that has been going on for at least the past month. She has not seen anyone about the symptoms. She thinks that they swell. Is hard for her to walk. States the pain is now radiating up her legs with the right being greater than left. She now has right knee pain and right hip pain. She denies any specific trauma. No changes to her skin. Related Data Home Medications Medication Instructions Recorded Confirmed No Known Home Medications 12/11/19 12/11/19 Previous Rx's Medication Instructions Recorded levothyroxine [Synthroid] 50 mcg PO DAILY #30 tab 04/14/20 Allergies Allergy/AdvReac Type Severity Reaction Status Date / Time iodine Allergy Verified 12/11/19 09:46 Review of Systems Constitutional Constitutional: Denies fever(s) ENT Ears, Nose, Mouth, and Throat: Denies dizziness Cardiovascular Cardiovascular: Denies chest pain, Denies syncope and Denies dyspnea Respiratory Respiratory: Denies dyspnea Gastrointestinal Gastrointestinal: Denies abdominal pain Musculoskeletal Musculoskeletal: Reports tingling Comments: Bilateral foot pain, right knee pain, right hip pain Integumentary/Breasts Skin/Breast: Denies lesions and Denies rash Neurologic Neurologic: Denies dizziness, Denies syncope and Reports tingling Hematologic/Lymphatic Hematologic/Lymphatic: Denies easy bleeding and Denies easy bruising Allergic/Immunologic Allergic/Immunologic: Denies urticaria Patient History Medical History Alcohol abuse Colitis Distal paresthesia No significant medical problems Social History household members: none Smoking Status: Current every day smoker Smoking Status: Current every day smoker tobacco type: cigarettes alcohol intake frequency: other Substance Use Type: does not use Exam Initial Vital Signs Initial Vital Signs: Vital Signs Temperature 97.4 F L 04/14/20 19:23 Pulse Rate 87 04/14/20 19:23 Respiratory Rate 20 04/14/20 19:23 Blood Pressure 169/94 H 04/14/20 19:23 Pulse Oximetry 100 04/14/20 19:23 Const General: cooperative Limitations: mental status not altered [facility] Head: normal to inspection and normocephalic Cardio Pulses: dorsalis pedis present bilaterally Skin Lesions: no lesions Rashes: no rashes Neuro Sensory Exam: no sensory deficits noted Extrem Other: Patient's bilateral feet and right knee and right hip were unremarkable. She does have some swelling to the right foot. She seems to have discomfort with touching anywhere on her feet from her ankles to her toes. Psych Appearance: grossly normal and well kempt Course Orders Ordered: ED Orders 04/14/20 20:40 Complete Blood Count AUTO DIFF Stat Comprehensive Metabolic Panel Stat Lipase Stat Thyroid Stimulating Hormone Stat Vital Signs Vital signs: Vital Signs - 8 hr 04/14/20 19:23 Temperature 97.4 F L Pulse Rate 87 Respiratory Rate 20 Blood Pressure 169/94 H Pulse Oximetry 100 MDM - Extremity (Nontraumatic) Lab Data Result diagrams: 04/14/20 20:40 04/14/20 20:40 Labs: Lab Results 04/14/20 04/14/20 04/14/20 Range/Units 20:40 20:40 20:40 WBC 5.7 (4.5-11.0) X10^3/uL RBC 3.26 L (4.0-5.2) X10^6/uL Hgb 11.6 L (12.0-16.0) g/dL Hct 35.8 L (36-46) % MCV 109.8 H (80-100) fL MCH 35.7 H (26-34) PG MCHC 32.6 (30-36) % RDW 15.4 H (11.6-14.8) % Plt Count 399 (150-400) X10^3/uL Neut % (Auto) 67.5 (50-75) % Lymph % (Auto) 19.0 L (25-40) % [place] % (Auto) 11.2 (3-14) % Eos % (Auto) 1.6 L (2-4) % Baso % (Auto) 0.7 (0-2) % Neut # (Auto) 3800 (8098-1643) /uL Lymph # (Auto) 1100 (4024-9844) /uL [place] # (Auto) 600 (0-900) /uL Eos # (Auto) 100 (0-450) /uL Baso # (Auto) 0 (0-100) /uL Sodium 138 (137-145) mmol/L Potassium 4.0 (3.4-5.1) mmol/L Chloride 105 (98-107) mmol/L Carbon Dioxide 26 (22-32) mmol/L BUN < 2 L (7-17) mg/dL Creatinine 0.40 L (0.52-1.04) mg/dL Estimated GFR > 60.0 (>60) mL/min BUN/Creatinine Ratio 5.0 L (6-22) Glucose 80 (70-100) mg/dL Calcium 9.2 (8.4-10.2) mg/dL Total Bilirubin 1.5 H (0.2-1.3) mg/dL AST 106 H (14-36) IU/L ALT 45 H (<35) IU/L Alkaline Phosphatase 126 (38-126) U/L Total Protein 6.2 L (6.3-8.2) g/dL Albumin 3.5 (3.5-5.0) g/dL Globulin 2.7 (1.7-4.1) g/dL Albumin/Globulin Ratio 1.3 (1.0-2.8) Lipase 36 (23-300) U/L TSH 7.52 H (0.47-4.68) uIU/mL [facility] Narrative Medical decision making narrative: I have low suspicion for fracture secondary to the fact that her symptoms have been going on for the past month. She has no skin changes concerning for cellulitis. She states the pain started in her feet and then his started moving up her right lower extremity. I have low suspicion that this is secondary to sciatic. She does have an elevated TSH and has not been on any of her thyroid medicine. She could potentially be having issues secondary to his a hypothyroid state. I will give her prescription for Synthroid however she states that she will not be able to fill a because she does not have any money. Unfortunately do not have social work available for her. No indication for radiologic studies. She was given a resource guide for the local area to include shelters another information. Unfortunately of feel that there is little more we can do for her and of the emergency department as her condition is not an emergent issue. She was given return precautions. Discharge Plan Departure Patient Disposition: Home Clinical Impression: Distal paresthesia Hypothyroid Qualifiers: Hypothyroidism type: unspecified Qualified Code(s): E03.9 - Hypothyroidism, unspecified Instructions: Hypothyroidism, DI for Numbness/Tingling Activity Restrictions/Additional Instructions: Please use the resource guide your given here in the emergency department to help with your social issues to include housing. You can contact the health natural resource specialist here at the hospital with [phone]. This individual can help you with establishing a primary provider. Your labs today are consiste nt with somebody who is hypothyroid. This means that your thyroid is not producing the hormone in a level that your body needs. This very well could be the reason as to why you are having the sensations in your lower extremities. You were given a prescription for Synthroid at the dose that you stated that you had been on in the past. I do recommend you start taking it as directed. Prescriptions: New levothyroxine [Synthroid] 50 mcg tablet 50 mcg PO DAILY Qty: 30 RF: 3 No Action No Known Home Medications RF: 0
[2020-04-14 21:00] LABS: Add Manual Diff / Slide Review NO; Alanine Aminotransferase 45 IU/L (<35); Albumin 3.5 g/dL (3.5-5.0); Albumin Globulin Ratio 1.3 (1.0-2.8); Alkaline Phosphatase 126 U/L (38-126); Aspartate Aminotransferase 106 IU/L (14-36); Basophils Absolute Auto 0 /uL (0-100); Basophils Percent Auto 0.7 % (0-2); Bilirubin Total 1.5 mg/dL (0.2-1.3); Calcium 9.2 mg/dL (8.4-10.2); Carbon Dioxide 26 mmol/L (22-32); Chloride 105 mmol/L (98-107); Eosinophils Absolute Auto 100 /uL (0-450); Eosinophils Percent Auto 1.6 % (2-4); Estimated Glomerular Filt Rate > 60.0 mL/min (>60); Globulin 2.7 g/dL (1.7-4.1); Glucose 80 mg/dL (70-100); HEMOLYSIS < 15 (0-50); Hematocrit 35.8 % (36-46); Hemoglobin 11.6 g/dL (12.0-16.0); Lipase 36 U/L (23-300); Lymphocytes Absolute Auto 1100 /uL (1100-4500); Mean Corpuscular HGB Conc 32.6 % (30-36); Mean Corpuscular Hemoglobin 35.7 PG (26-34); Mean Corpuscular Volume 109.8 fL (80-100); Monocytes Absolute Auto 600 /uL (0-900); Monocytes Percent Auto 11.2 % (3-14); Neutrophils Absolute Auto 3800 /uL (1500-7000); Neutrophils Percent Auto 67.5 % (50-75); Platelet Count 399 X10^3/uL (150-400); Red Blood Cell Count 3.26 X10^6/uL (4.0-5.2); Red Cell Distribution Width 15.4 % (11.6-14.8); Sodium 138 mmol/L (137-145); Total Protein 6.2 g/dL (6.3-8.2); White Blood Cell Count 5.7 X10^3/uL (4.5-11.0)
[2020-04-14 21:02] LABS: Blood Urea Nitrogen < 2 mg/dL (7-17)
[2020-04-14 21:37] LABS: Thyroid Stimulating Hormone 7.52 uIU/mL (0.47-4.68)
== END 2020-04-14 22:00 | disposition home or self-care (01) ==
PROVIDERS: Emergency Provider Emergency Medicine
DX: R20.2 Paresthesia of skin (principal); E03.9 Hypothyroidism, unspecified; M79.672 Pain in left foot; M79.671 Pain in right foot; M25.551 Pain in right hip
CPT/HCPCS: 36415; 80053; 83690; 84443; 85025; 99281; 99283

== ENCOUNTER 2020-07-09 16:21 | Emergency (ER) | payer OTHER, SELFPAY ==
[2019-12-11 15:54] VITALS: BMI 21.2
[2020-07-09 16:34] VITALS: BP 160/86; PULSE 110; RESP 14; TEMP 37.1; O2SAT 97; BMI 21.9
[2020-07-09 19:43] LABS: INR 1.3 (0.9-1.3); Prothrombin Time 14.8 SECONDS (10.1-12.7)
[2020-07-09 19:44] LABS: Add Manual Diff / Slide Review NO; Basophils Absolute Auto 100 /uL (0-100); Basophils Percent Auto 1.3 % (0-2); Eosinophils Absolute Auto 100 /uL (0-450); Eosinophils Percent Auto 0.9 % (2-4); Hematocrit 37.4 % (36-46); Hemoglobin 12.3 g/dL (12.0-16.0); Lymphocytes Absolute Auto 1400 /uL (1100-4500); Lymphocytes Percent Auto 20.5 % (25-40); Monocytes Absolute Auto 700 /uL (0-900); Neutrophils Absolute Auto 4500 /uL (1500-7000); Neutrophils Percent Auto 67.3 % (50-75); Platelet Count 213 X10^3/uL (150-400); Red Blood Cell Count 3.63 X10^6/uL (4.0-5.2); White Blood Cell Count 6.6 X10^3/uL (4.5-11.0)
[2020-07-09 19:45] LABS: PTT Partial Thromboplastin Tim 38 SECONDS (26.4-36.2)
[2020-07-09 19:47] LABS: Alanine Aminotransferase 27 IU/L (<35); Albumin 3.5 g/dL (3.5-5.0); Albumin Globulin Ratio 0.9 (1.0-2.8); Alkaline Phosphatase 162 U/L (38-126); Aspartate Aminotransferase 72 IU/L (14-36); Bilirubin Total 2.5 mg/dL (0.2-1.3); Calcium 8.1 mg/dL (8.4-10.2); Carbon Dioxide 30 mmol/L (22-32); Chloride 96 mmol/L (98-107); Estimated Glomerular Filt Rate > 60.0 mL/min (>60); Ethanol (ETOH) < 10 mg/dL; Globulin 3.8 g/dL (1.7-4.1); Glucose 85 mg/dL (70-100); HEMOLYSIS < 15 (0-50); Sodium 134 mmol/L (137-145); Total Protein 7.3 g/dL (6.3-8.2)
[2020-07-09 20:09] LABS: BUN Creatinine Ratio 5.7 (6-22); Blood Urea Nitrogen 2 mg/dL (7-17)
[2020-07-09 20:10] LABS: Potassium 2.7 mmol/L (3.4-5.1)
[2020-07-09 20:17] LABS: RBC Urine 5-10/HPF (0-5/HPF)
[2020-07-09 20:18] LABS: Bacteria Urine Many (>30); Culture Indicated Urine Specimen Cultured; Squamous Epithelial Cell Urine 0-1 /HPF (0-5/HPF); WBC Urine 30-100/HPF (0-5/HPF)
[2020-07-09] MEDS: POTASSIUM CHLORIDE 20 MEQ/15 ML UDC 40 MEQ PO (21:17)
[2020-07-09 22:25] VITALS: BP 155/66; PULSE 104; RESP 16; O2SAT 100
--- NOTE | 2020-07-09 22:33 | DI.CT.S_ITS ---
PROCEDURE: CT ABDOMEN PELVIS WO CON INDICATIONS: abdominal pain TECHNIQUE: Noncontrast 5 mm thick sections acquired from the diaphragms to the symphysis. 5 mm coronal and sagittal reformats were then performed. For radiation dose reduction, the following was used: automated exposure control, adjustment of mA and/or kV according to patient size. COMPARISON: [facility], CT, CT ABDOMEN PELVIS WO CON, 12/11/2019, 12:16. FINDINGS: Image quality: Excellent. ABDOMEN: Lung bases: Right middle lobe atelectasis. Bilateral lung bases appear clear. Heart size is normal. Small hiatal hernia. Bilateral breast implants are noted. Solid organs: Liver is normal in size. Redemonstration of moderate diffuse hepatic hypoattenuation compatible with hepatic steatosis. There is a 2.5 cm peripheral hyperdense focus within the periphery of the hepatic dome, posterior aspect of the right hepatic lobe best seen on image 16, series 2. Gallbladder wall is thickened with mild pericholecystic stranding. Persistent faint hyperdense content within the gallbladder lumen. No CT evidence for focal gallstones. No intrahepatic or extrahepatic biliary ductal dilatation noted.. Pancreas is normal in shape and contour without significant peripancreatic inflammatory stranding. Spleen is unremarkable in noncontrast appearance. No adrenal nodules. Kidneys are symmetric in size without hydronephrosis. Stable 4 mm nonobstructing left renal stone. Visualized course of the bilateral ureters appear normal. No ureteral stones seen. Peritoneum and bowel: Bowel loops demonstrate normal wall thickness and caliber. Moderate amount of fluid seen throughout the abdomen and pelvis. It measures simple fluid attenuation. Stranding appearance surrounding multiple loops of bowel and colon particularly along the bilateral pericolic gutters favored to represent volume averaging artifact with ascites. Normal appendix. No evidence for bowel obstruction. No findings of abnormal bowel wall thickening noted. Nodes and vessels: No retroperitoneal or mesenteric adenopathy by size criteria. Aorta and inferior vena cava are normal in size. Miscellaneous: No ventral hernias. PELVIS: Genitourinary: Bladder wall thickness is normal. Miscellaneous: No inguinal hernias. No pelvic adenopathy. Bones: No suspicious bony lesions. No acute vertebral body compression fractures. IMPRESSION: 1. Thickened gallbladder wall with mild pericholecystic stranding suggestive of possible acute cholecystitis. Recommend clinical correlation and possible right upper quadrant ultrasound to further evaluate. 2. Mild-moderate amount of free fluid seen in the abdomen/pelvis likely reactive in etiology. 3. Possible focal fatty sparing versus focal hepatic lesion involving the hepatic dome of the liver. Consider further evaluation with contrast enhanced abdominal MRI (liver mass protocol) to further characterize as an outpatient. 4. Moderate hepatic steatosis as before. 5. Stable 4 mm nonobstructing left renal stone. 6. Normal appendix. No significant discrepancy with the operations supervisor 2nd shift radiology preliminary report. Dictated by: Markie Baldwin M.D. on 07/10/2020 at 8:39 Approved by: Markie Baldwin M.D. on 07/10/2020 at 8:54
[2020-07-09 22:49] LABS: Lipase 38 U/L (23-300)
--- NOTE | 2020-07-09 22:56 | ED.ALCOHOL ---
HPI - Alcohol General Chief Complaint: Toxicology Problem Stated Complaint: Wants detox from pain medications Time Seen by Provider: 07/09/20 22:19 Source: patient Mode of arrival: Wheelchair Limitations: no limitations History of Present Illness HPI narrative: Patient is a 49-year-old female history of epilepsy, alcohol abuse and recent heroin abuse presenting today with abdominal pain nausea vomiting diarrhea and wanting detox. She states that she currently lives in her car. Her last drink was 4 days ago she typically drinks heavily she did not give me in amount. 2 months ago she started smoking heroin. The last couple of days she has had vomiting nausea and diarrhea along with some abdominal pain. She denies any fever or chills no chest pain or shortness of breath. No painful or frequent urination. She is wanting detox. She occasionally has thoughts of harming herself but has never attempted. She states she has not been taking her seizure medication she does not have the money for. She says when she stops drinking she starts shaking. MD complaint: desires rehab Related Data Home Medications Medication Instructions Recorded Confirmed No Known Home Medications 12/11/19 12/11/19 Previous Rx's Medication Instructions Recorded levothyroxine [Synthroid] 50 mcg PO DAILY #30 tab 04/14/20 Allergies Allergy/AdvReac Type Severity Reaction Status Date / Time iodine Allergy Verified 07/09/20 16:34 Review of Systems Review of Systems Narrative: GENERAL: Denies chills, fatigue, malaise, fever, sweats, travel HEENT: Denies sinus pain, ear pain, sore throat, difficulty swallowing, neck pain RESPIRATORY: Denies dyspnea, cough, wheezing, hemoptysis, sputum. CARDIOVASCULAR: Denies chest pain, palpitations, orthopnea, edema GASTROINTESTINAL: See HPI : Denies dysuria, frequency, incontinence, hematuria, urinary retention, flank pain. MUSCULOSKELETAL: Denies weakness, joint pain, or bony pain SKIN: No rash, no erythema, no pruritus NEUROLOGIC: Denies weakness, dizziness, headache, numbness, change in speech, confusion PSYCHIATRIC: No concerning psychosocial issues. 12 point review of systems is negative except for those stated above and HPI Patient History Medical History Alcohol abuse Colitis Distal paresthesia No significant medical problems Social History household members: none Smoking Status: Current every day smoker Smoking Status: Current every day smoker tobacco type: cigarettes alcohol intake frequency: 0-2 drinks per day Substance Use Type: heroin Exam Initial Vital Signs Initial Vital Signs: Vital Signs Temperature 98.8 F 07/09/20 16:34 Pulse Rate 110 H 07/09/20 16:34 Respiratory Rate 14 07/09/20 16:34 Blood Pressure 160/86 H 07/09/20 16:34 Pulse Oximetry 97 07/09/20 16:34 GENERAL: The patient appears uncomfortable shaking and in no acute distress. HEENT: Head atraumatic,EOMI, pupils reactive, face symmetric, moist mucous membranes, thinning hair noted CARDIOVASCULAR: Tachycardic regular no murmur RESPIRATORY: Breath sounds equal bilaterally, no wheezes rales or rhonchi. ABDOMEN: Soft, sinus diffuse tenderness all left upper quadrant mostly no guarding or rebound : No CVA tenderness EXTREMITIES: Normal range of motion, no clubbing or edema. Neurovascularly intact NEUROLOGICAL: Alert and oriented x4.Normal gait and speech. Cranial nerves II through XII grossly intact. SKIN: Warm, dry, no laceration, no petechiae, no rashes or lesions. Course Orders Ordered: ED Orders 07/09/20 22:33 CT abdomen pelvis wo con Stat 07/09/20 23:58 US abdomen limited Stat 07/10/20 03:00 EKG-12 Lead Stat 07/10/20 03:13 COVID19 Stat Discontinued Medications Sodium Chloride (Normal Saline 0.9%) 1,000 mls @ 1,000 mls/hr IV BOLUS ONE Stop: 07/09/20 23:32 Last Infusion: 07/10/20 00:21 Dose: 0 mls/hr Documented by: Admin: 07/09/20 23:04 Dose: 1,000 mls/hr Documented by: ELIZABETH Potassium Chloride 40 meq/ (Sodium Chloride) 520 mls @ 130 mls/hr IV NOW ONE Stop: 07/10/20 02:33 Last Infusion: 07/10/20 05:23 Dose: 0 mls/hr Documented by: MAMIE Cosigned by: FUAD Admin: 07/09/20 23:50 Dose: 130 mls/hr Documented by: ELIZABETH Cosigned by: MAMIE Piperacillin/Tazobactam/Dextrose (Zosyn) 3.375 gm in 50 mls @ 100 mls/hr IV NOW ONE Stop: 07/10/20 02:26 Last Infusion: 07/10/20 03:06 Dose: 0 mls/hr Documented by: Admin: 07/10/20 02:18 Dose: 100 mls/hr Documented by: MAMIE Lorazepam (Lorazepam 2 Mg/Ml Inj) 1 mg IV NOW ONE Stop: 07/10/20 00:52 Last Admin: 07/10/20 01:06 Dose: 1 mg Documented by: ELIZABETH Ondansetron HCl (Ondansetron 4 Mg/2 Ml Inj) 4 mg IV NOW ONE Stop: 07/09/20 22:34 Last Admin: 07/09/20 23:04 Dose: 4 mg Documented by: ELIZABETH Phenobarbital (Phenobarbital 65 Mg/Ml Vial) 130 mg IV NOW ONE Stop: 07/10/20 02:36 Last Admin: 07/10/20 02:55 Dose: 130 mg Documented by: MAMIE Potassium Chloride (Potassium Chloride 20 Meq/15 Ml Udc) 40 meq PO NOW ONE Stop: 07/09/20 21:06 Last Admin: 07/09/20 21:17 Dose: 40 meq Documented by: ELIZABETH Vital Signs Vital signs: Vital Signs - 8 hr 07/09/20 22:25 07/09/20 23:08 07/09/20 23:30 Pulse Rate 104 H 96 H Respiratory Rate 16 Blood Pressure 155/66 H 132/90 126/70 Pulse Oximetry 100 98 97 07/10/20 00:00 07/10/20 00:30 07/10/20 01:00 Pulse Rate 92 H 98 H 93 H Respiratory Rate Blood Pressure 129/70 128/81 125/71 Pulse Oximetry 96 97 97 07/10/20 01:30 07/10/20 02:00 07/10/20 02:30 Pulse Rate 100 H 102 H 109 H Respiratory Rate Blood Pressure 127/65 127/66 112/58 L Pulse Oximetry 97 96 96 07/10/20 03:00 07/10/20 03:30 07/10/20 04:00 Pulse Rate 102 H 108 H 105 H Respiratory Rate Blood Pressure 137/76 109/61 112/59 L Pulse Oximetry 97 97 95 02/11/21 04:30 07/10/20 04:37 Pulse Rate 106 H 112 H Respiratory Rate 20 19 Blood Pressure 124/67 136/89 Pulse Oximetry 97 96 MDM - Alcohol Lab Data Attestation: I reviewed the patient's lab results. Result diagrams: 07/09/20 19:24 07/09/20 19:24 Labs: Lab Results 07/09/20 07/09/20 07/09/20 Range/Units 19:24 19:24 19:24 WBC 6.6 (4.5-11.0) X10^3/uL RBC 3.63 L (4.0-5.2) X10^6/uL Hgb 12.3 (12.0-16.0) g/dL Hct 37.4 (36-46) % MCV 103.0 H (80-100) fL MCH 34.0 (26-34) PG MCHC 33.0 (30-36) % RDW 16.0 H (11.6-14.8) % Plt Count 213 (150-400) X10^3/uL Neut % (Auto) 67.3 (50-75) % Lymph % (Auto) 20.5 L (25-40) % Metcalfe % (Auto) 10.0 (3-14) % Eos % (Auto) 0.9 L (2-4) % Baso % (Auto) 1.3 (0-2) % Neut # (Auto) 4500 (4521-4716) /uL Lymph # (Auto) 1400 (7796-6289) /uL Metcalfe # (Auto) 700 (0-900) /uL Eos # (Auto) 100 (0-450) /uL Baso # (Auto) 100 (0-100) /uL PT 14.8 H (10.1-12.7) SECONDS INR 1.3 (0.9-1.3) APTT 38 H D (26.4-36.2) SECONDS Sodium 134 L (137-145) mmol/L Potassium 2.7 L* (3.4-5.1) mmol/L Chloride 96 L (98-107) mmol/L Carbon Dioxide 30 (22-32) mmol/L BUN 2 L (7-17) mg/dL Creatinine 0.35 L (0.52-1.04) mg/dL Estimated GFR > 60.0 (>60) mL/min BUN/Creatinine Ratio 5.7 L (6-22) Glucose 85 (70-100) mg/dL Calcium 8.1 L (8.4-10.2) mg/dL Total Bilirubin 2.5 H (0.2-1.3) mg/dL AST 72 H (14-36) IU/L ALT 27 (<35) IU/L Alkaline Phosphatase 162 H (38-126) U/L Total Protein 7.3 (6.3-8.2) g/dL Albumin 3.5 (3.5-5.0) g/dL Globulin 3.8 (1.7-4.1) g/dL Albumin/Globulin Ratio 0.9 L (1.0-2.8) Lipase (23-300) U/L Urine RBC (0-5/HPF) Urine WBC (0-5/HPF) Ur Squamous Epith Cells (0-5/HPF) Urine Bacteria (None) Ur Culture Indicated? U Opiates 300ng/mL cut (Negative) Ur Oxycodone Screen (Negative) Urine Methadone Screen (Negative) Ur Barbiturates Screen (Negative) U Tricyclic Antidepress (Negative) Ur Phencyclidine Scrn (Negative) Ur Amphetamines Screen (Negative) U Methamphetamines Scrn (Negative) Ur MDMA Scrn (Ecstasy) (Negative) U Benzodiazepines Scrn (Negative) Urine Cocaine Screen (Negative) U Marijuana (THC) Screen (Negative) Ethyl Alcohol < 10 ( - 10) mg/dL SARS-CoV-2 (PCR) (Negative) 07/09/20 07/09/20 07/09/20 Range/Units 19:24 19:30 19:38 WBC (4.5-11.0) X10^3/uL RBC (4.0-5.2) X10^6/uL Hgb (12.0-16.0) g/dL Hct (36-46) % MCV (80-100) fL MCH (26-34) PG MCHC (30-36) % RDW (11.6-14.8) % Plt Count (150-400) X10^3/uL Neut % (Auto) (50-75) % Lymph % (Auto) (25-40) % Metcalfe % (Auto) (3-14) % Eos % (Auto) (2-4) % Baso % (Auto) (0-2) % Neut # (Auto) (2726-3071) /uL Lymph # (Auto) (1665-8574) /uL Metcalfe # (Auto) (0-900) /uL Eos # (Auto) (0-450) /uL Baso # (Auto) (0-100) /uL PT (10.1-12.7) SECONDS INR (0.9-1.3) APTT (26.4-36.2) SECONDS Sodium (137-145) mmol/L Potassium (3.4-5.1) mmol/L Chloride (98-107) mmol/L Carbon Dioxide (22-32) mmol/L BUN (7-17) mg/dL Creatinine (0.52-1.04) mg/dL Estimated GFR (>60) mL/min BUN/Creatinine Ratio (6-22) Glucose (70-100) mg/dL Calcium (8.4-10.2) mg/dL Total Bilirubin (0.2-1.3) mg/dL AST (14-36) IU/L ALT (<35) IU/L Alkaline Phosphatase (38-126) U/L Total Protein (6.3-8.2) g/dL Albumin (3.5-5.0) g/dL Globulin (1.7-4.1) g/dL Albumin/Globulin Ratio (1.0-2.8) Lipase 38 (23-300) U/L Urine RBC 5-10/hpf H (0-5/HPF) Urine WBC 30-100/hpf H (0-5/HPF) Ur Squamous Epith Cells 0-1 /hpf D (0-5/HPF) Urine Bacteria Many (>30) H (None) Ur Culture Indicated? Specimen cultured U Opiates 300ng/mL cut Positive H (Negative) Ur Oxycodone Screen Negative (Negative) Urine Methadone Screen Negative (Negative) Ur Barbiturates Screen Negative (Negative) U Tricyclic Antidepress Negative (Negative) Ur Phencyclidine Scrn Negative (Negative) Ur Amphetamines Screen Negative (Negative) U Methamphetamines Scrn Positive H (Negative) Ur MDMA Scrn (Ecstasy) Negative (Negative) U Benzodiazepines Scrn Negative (Negative) Urine Cocaine Screen Negative (Negative) U Marijuana (THC) Screen Negative (Negative) Ethyl Alcohol ( - 10) mg/dL SARS-CoV-2 (PCR) (Negative) 07/10/20 Range/Units 03:13 WBC (4.5-11.0) X10^3/uL RBC (4.0-5.2) X10^6/uL Hgb (12.0-16.0) g/dL Hct (36-46) % MCV (80-100) fL MCH (26-34) PG MCHC (30-36) % RDW (11.6-14.8) % Plt Count (150-400) X10^3/uL Neut % (Auto) (50-75) % Lymph % (Auto) (25-40) % Metcalfe % (Auto) (3-14) % Eos % (Auto) (2-4) % Baso % (Auto) (0-2) % Neut # (Auto) (4072-2550) /uL Lymph # (Auto) (3041-4806) /uL Metcalfe # (Auto) (0-900) /uL Eos # (Auto) (0-450) /uL Baso # (Auto) (0-100) /uL PT (10.1-12.7) SECONDS INR (0.9-1.3) APTT (26.4-36.2) SECONDS Sodium (137-145) mmol/L Potassium (3.4-5.1) mmol/L Chloride (98-107) mmol/L Carbon Dioxide (22-32) mmol/L BUN (7-17) mg/dL Creatinine (0.52-1.04) mg/dL Estimated GFR (>60) mL/min BUN/Creatinine Ratio (6-22) Glucose (70-100) mg/dL Calcium (8.4-10.2) mg/dL Total Bilirubin (0.2-1.3) mg/dL AST (14-36) IU/L ALT (<35) IU/L Alkaline Phosphatase (38-126) U/L Total Protein (6.3-8.2) g/dL Albumin (3.5-5.0) g/dL Globulin (1.7-4.1) g/dL Albumin/Globulin Ratio (1.0-2.8) Lipase (23-300) U/L Urine RBC (0-5/HPF) Urine WBC (0-5/HPF) Ur Squamous Epith Cells (0-5/HPF) Urine Bacteria (None) Ur Culture Indicated? U Opiates 300ng/mL cut (Negative) Ur Oxycodone Screen (Negative) Urine Methadone Screen (Negative) Ur Barbiturates Screen (Negative) U Tricyclic Antidepress (Negative) Ur Phencyclidine Scrn (Negative) Ur Amphetamines Screen (Negative) U Methamphetamines Scrn (Negative) Ur MDMA Scrn (Ecstasy) (Negative) U Benzodiazepines Scrn (Negative) Urine Cocaine Screen (Negative) U Marijuana (THC) Screen (Negative) Ethyl Alcohol ( - 10) mg/dL SARS-CoV-2 (PCR) Negative (Negative) Point of Care Testing Glucose POC 68 Urine Dip Bedside Urine Glucose Negative Bedside Urine Bilirubin - Negative Bedside Urine Ketone +/- 5 Urine Specific Rush 1.020 Bedside Urine Occult Blood +/- Bedside Urine pH 6 Bedside Urine Protein +/- 15 Bedside Urine Urobilinogen 3+ 8mg Bedside Urine Nitrite + Positive Bedside Urine Leukocytes ++ [address] scan - abdomen/pelvis: Radiologist's Impressoin: Preliminary report gallbladder wall thickening and pericholecystic stranding question cholecystitis US - abdomen: Radiologist's Impressoin: Preliminary report gallbladder sludge with wall thickening concerning for cholecystitis. Common bile duct 5.9 mm. Wall thickening 4.5 mm ECG Data Attestation: I personally reviewed and interpreted this ECG as follows: Interpretation: Normal sinus rhythm rate 97 p.r. interval 138 QRS 76 his QTC [address] changes no T-wave inversions no leak U waves appreciated MDM Narrative Medical decision making narrative: Patient is having abdominal pain and vomiting ongoing for last 4-5 days. Potassium is found to be quite low at 2.7 which is currently being replaced. She is tender in her right upper car quadrant and epigastric area. CT does show concern for cholecystitis and ultrasound confirms cholecystitis. Bilirubin however is mildly elevated at 2.5, with AST72, ALT 27 and alk-phos 162. Previously in March of 2020 bilirubin of 1.5 AST 106 and ALT 45 alk-phos 126. 0155 Shellie, surgery updated patient's symptoms test results. With worsening elevated bilirubin and cholecystitis on ultrasound and CT patient will need MRCP and likely ERCP. At this time he recommends transfer patient. The patient also found to have UTI she does complain of painful frequent urination. She overall does not appear septic no leukocytosis or fever. She is complaining of quite bad neuropathy which she has been in before for the same. She also feels shaky and anxious. She is given a dose of Ativan along with phenobarbital. Dr. Younger at [facility] happily accepts patient Critical Care Time Critical Care Time Critical Care Time: Yes Total Critical Care Time: 30 Attestation: The high probability of a clinically significant, sudden or life threatening deterioration of the [cardiovascular] system(s) required my full and direct attention, intervention and personal management. The aggregate critical care time was 30 minutes. This time is in addition to time spent performing reported procedures but includes the following: [x] Data Review and interpretation [x] Patient assessment and monitoring of vital signs [x] Documentation [x] Medication orders and management Discharge Plan Departure Patient Disposition: [facility] Clinical Impression: Acute cholecystitis, Acute hypokalemia, Polysubstance abuse Prescriptions: No Action No Known Home Medications RF: 0 levothyroxine [Synthroid] 50 mcg tablet 50 mcg PO DAILY Qty: 30 RF: 3
[2020-07-09] MEDS: ONDANSETRON 4 MG/2 ML INJ IV (23:04)
[2020-07-09] MEDS: SODIUM CHLORIDE 0.9% 1,000 ML 1000 ML IV (23:04)
[2020-07-09 23:08] VITALS: BP 132/90; O2SAT 98
[2020-07-09 23:15] LABS: Ur Creatinine Normal (Normal); Ur Specific Gravity Normal (Normal); Urine pH Normal (Normal)
[2020-07-09 23:16] LABS: UR Morphine/Opiate cutoff 300 Positive (Negative); Urine Amphetamines Negative (Negative); Urine Barbiturates Negative (Negative); Urine Benzodiazepines Negative (Negative); Urine Cocaine Negative (Negative); Urine MDMA Negative (Negative); Urine Methadone Negative (Negative); Urine Methamphetamines Positive (Negative); Urine Oxycodone Negative (Negative); Urine Phencyclidine Negative (Negative); Urine Tetrahydrocannabinol Negative (Negative); Urine Tricyclic Antidepressant Negative (Negative)
[2020-07-09 23:30] VITALS: BP 126/70; PULSE 96; O2SAT 97
[2020-07-09] MEDS: POTASSIUM CHLORIDE 40 MEQ in SODIUM CHLORIDE 0.9% 500 ML 130 ML IV (23:50)
--- NOTE | 2020-07-09 23:58 | DI.US.S_ITS ---
PROCEDURE: US ABDOMEN LIMITED INDICATIONS: RIGHT UPPER QUDRANT PAIN TECHNIQUE: Real-time scanning was performed of the abdominal and retroperitoneal organs, with image documentation. Color and pulse Doppler interrogation was also performed of the hepatic and splenic vessels, or of the lesion of interest. COMPARISON: None. FINDINGS: Liver: Liver is normal in size and homogeneous in echotexture. Liver is diffusely echogenic. Gallbladder: Sludge noted within the gallbladder lumen. No gallstones. Gallbladder wall is thickened to 3.6-4.5 millimeters. No pericholecystic fluid. Positive sonographic Viveros sign noted. Biliary ducts: No intrahepatic biliary ductal dilatation. Extrahepatic bile duct is 5.9 mm in caliber. Normal biliary caliber is 6-7 mm or less, or 10 mm or less post-cholecystectomy. Spleen: Spleen is normal in size and homogeneous in echotexture. Pancreas: Visualized portions of the pancreas appear normal. IMPRESSION: 1. Gallbladder sludge with gallbladder wall thickening and positive sonographic Viveros sign concerning for acute cholecystitis. 2. Echogenic liver. Finding typically represents fatty infiltration; however, finding is nonspecific and correlation with clinical and laboratory findings is recommended to exclude other etiologies including hepatic cirrhosis. Dictated by: Laura Albert MD, PhD on 07/10/2020 at 8:28 Approved by: Laura Albert MD, PhD on 07/10/2020 at 8:31
[2020-07-10] VITALS (11 sets, daily range): BP systolic 109–137; BP diastolic 58–89; PULSE 92–112; RESP 19–20; O2SAT 95–97
[2020-07-10] MEDS: LORazepam 2 MG/ML INJ 1 MG IV (01:06)
[2020-07-10] MEDS: PIPERACILLIN-TAZO 3.375 GM/50 ML FROZ.PIGGY IV (02:18)
[2020-07-10] MEDS: PHENobarbital 65 MG/ML VIAL 130 MG IV (02:55)
[2020-07-10 03:35] LABS: COVID19 -Nasal RAPID Negative (Negative)
== END 2020-07-10 05:14 | disposition short-term general hospital (02) ==
PROVIDERS: Emergency Medicine; Emergency Provider Emergency Medicine
DX: K81.0 Acute cholecystitis (principal); E87.6 Hypokalemia; F19.10 Other psychoactive substance abuse, uncomplicated; N39.0 Urinary tract infection, site not specified; R11.2 Nausea with vomiting, unspecified; R19.7 Diarrhea, unspecified; Z86.69 Personal history of other diseases of the nervous system and sense organs; Z20.822 Contact with and (suspected) exposure to COVID-19
CPT/HCPCS: 36415; 74176; 76705; 80053; 80305; 80320; 81003; 81015; 82962; 83690; 85025; 85610; 85730; 87077; 87086; 87186; 87635; 93005; 93010; 96361; 96365; 96366; 96368; 96375; 99284; 99291; C9803; J2060; J2405; J2543; J2560; J3480

== ENCOUNTER 2020-08-10 19:07 | Emergency (ER) | payer OTHER, MEDICAID, SELFPAY ==
[2020-07-16 09:29] VITALS: BMI 21.2
[2020-08-10 19:18] VITALS: BP 156/92; PULSE 92; RESP 14; TEMP 36.8; O2SAT 99; BMI 21.9
--- NOTE | 2020-08-10 19:30 | PC.NURSE ---
Hard c-collar placed in triage
--- NOTE | 2020-08-10 20:08 | DI.CT.S_ITS ---
PROCEDURE: CT ORBIT LT WO CON INDICATIONS: trauma TECHNIQUE: Noncontrast 2.5 mm axial images acquired through the orbits, with coronal and sagittal reformats. For radiation dose reduction, the following was used: automated exposure control, adjustment of mA and/or kV according to patient size. COMPARISON: None. FINDINGS: Image quality: Excellent. Orbits: Globes are symmetrical. No metallic foreign bodies. The optic nerves are normal in size. No retrobulbar masses or fat abnormalities. The extra-ocular muscles are normal and symmetrical in appearance. Lacrimal glands are normal in size. Optic chiasm is normal. Intracranial: Visualized portions of the cerebral hemispheres, brainstem, and spinal cord are normal. Bones and sinuses: Visualized calvarium and facial bones appear intact. Visualized sinuses and mastoids are clear. IMPRESSION: No fracture. Dictated by: Rogelio Yu M.D. on 08/10/2020 at 20:50 Approved by: Rogelio Yu M.D. on 08/10/2020 at 20:51
--- NOTE | 2020-08-10 20:09 | DI.CT.S_ITS ---
PROCEDURE: CT HEAD/BRAIN WO CON INDICATIONS: trauma TECHNIQUE: Noncontrast 4.5 mm thick angled axial sections acquired from the foramen magnum to the vertex, with coronal and sagittal reformats. For radiation dose reduction, the following was used: automated exposure control, adjustment of mA and/or kV according to patient size. COMPARISON: [facility], CT, CT HEAD/BRAIN WO CON, 12/22/2019, 23:10. FINDINGS: Image quality: Excellent. CSF spaces: Basal cisterns are patent. No extra-axial fluid collections. Ventricles are normal in size and shape. Brain: No midline shift. No intracranial masses or hemorrhage. Read-white matter interface is normal. Skull and face: Calvarium and visualized facial bones are intact, without suspicious lesions. Sinuses: Visualized sinuses and mastoids are clear. IMPRESSION: No acute process. Dictated by: Rogelio Yu M.D. on 08/10/2020 at 20:50 Approved by: Rogelio Yu M.D. on 08/10/2020 at 20:50
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
[2020-08-10] MEDS: KETOROLAC 60 MG/2 ML VIAL 15 MG IV (20:59)
[2020-08-10] MEDS: SODIUM CHLORIDE 0.9% 1,000 ML 1000 ML IV (20:59)
[2020-08-10 21:16] LABS: Alanine Aminotransferase 56 IU/L (<35); Albumin 4.3 g/dL (3.5-5.0); Albumin Globulin Ratio 1.1 (1.0-2.8); Alkaline Phosphatase 133 U/L (38-126); Aspartate Aminotransferase 81 IU/L (14-36); BUN Creatinine Ratio 10.9 (6-22); Bilirubin Total 0.6 mg/dL (0.2-1.3); Blood Urea Nitrogen 5 mg/dL (7-17); Calcium 9.3 mg/dL (8.4-10.2); Carbon Dioxide 31 mmol/L (22-32); Chloride 103 mmol/L (98-107); Estimated Glomerular Filt Rate > 60.0 mL/min (>60); Ethanol (ETOH) 242 mg/dL; Globulin 3.9 g/dL (1.7-4.1); Glucose 105 mg/dL (70-100); Hematocrit 42.1 % (36-46); Lipase 76 U/L (23-300); Mean Corpuscular HGB Conc 33.2 % (30-36); Mean Corpuscular Hemoglobin 33.6 PG (26-34); Mean Corpuscular Volume 101.3 fL (80-100); Platelet Count 227 X10^3/uL (150-400); Potassium 4.6 mmol/L (3.4-5.1); Red Blood Cell Count 4.16 X10^6/uL (4.0-5.2); Red Cell Distribution Width 14.5 % (11.6-14.8); Sodium 143 mmol/L (137-145); Total Protein 8.2 g/dL (6.3-8.2); White Blood Cell Count 4.3 X10^3/uL (4.5-11.0)
[2020-08-10 21:17] LABS: HEMOLYSIS 55 (0-50)
[2020-08-10 21:19] LABS: Add Manual Diff / Slide Review YES
[2020-08-10] MEDS: TRIMETH/SULFA 160/800 (DS) TABLET 1 TAB PO (21:35)
[2020-08-10 21:50] VITALS: BP 114/59; PULSE 88; RESP 14; TEMP 36.4; O2SAT 100
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
[2020-08-10 22:32] LABS: Neutrophils Absolute Manual 1763 /uL (3000-5900); Total Cells Counted 100
[2020-08-10 22:33] LABS: Macrocytosis 1+
[2020-08-10 22:45] VITALS: TEMP 36.4
== END 2020-08-10 22:49 | disposition home or self-care (01) ==
PROVIDERS: Emergency Provider Emergency Medicine; PCP Family Medicine
DX: S09.93XA Unspecified injury of face, initial encounter (principal); M54.2 Cervicalgia; R10.11 Right upper quadrant pain; N30.00 Acute cystitis without hematuria; F10.129 Alcohol abuse with intoxication, unspecified; Y90.8 Blood alcohol level of 240 mg/100 ml or more; Y04.2XXA Assault by strike against or bumped into by another person, initial encounter
CPT/HCPCS: 36415; 70450; 70480; 72125; 80053; 80320; 81003; 83690; 85007; 85025; 96361; 96374; 99284; J1885

== ENCOUNTER 2020-08-27 01:49 | Emergency (ER) | payer OTHER, MEDICAID, SELFPAY ==
[2020-07-16 09:29] VITALS: BMI 21.2
[2020-08-27 01:51] VITALS: BMI 22.9
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
[2020-08-27] MEDS: SODIUM CHLORIDE 0.9% 1,000 ML 1000 ML IV (03:00)
[2020-08-27] MEDS: ONDANSETRON 4 MG/2 ML INJ IV (03:03)
[2020-08-27 03:06] LABS: Add Manual Diff / Slide Review NO; Basophils Absolute Auto 100 /uL (0-100); Basophils Percent Auto 1.4 % (0-2); Eosinophils Absolute Auto 100 /uL (0-450); Eosinophils Percent Auto 1.9 % (2-4); Hematocrit 39.6 % (36-46); Hemoglobin 13.3 g/dL (12.0-16.0); Lymphocytes Absolute Auto 2000 /uL (1100-4500); Lymphocytes Percent Auto 36.8 % (25-40); Mean Corpuscular HGB Conc 33.6 % (30-36); Mean Corpuscular Hemoglobin 33.7 PG (26-34); Mean Corpuscular Volume 100.3 fL (80-100); Monocytes Absolute Auto 300 /uL (0-900); Monocytes Percent Auto 6.1 % (3-14); Neutrophils Absolute Auto 2900 /uL (1500-7000); Neutrophils Percent Auto 53.8 % (50-75); Platelet Count 242 X10^3/uL (150-400); Red Blood Cell Count 3.95 X10^6/uL (4.0-5.2); Red Cell Distribution Width 14.3 % (11.6-14.8); White Blood Cell Count 5.4 X10^3/uL (4.5-11.0)
[2020-08-27 03:14] LABS: Alanine Aminotransferase 64 IU/L (<35); Albumin 4.1 g/dL (3.5-5.0); Albumin Globulin Ratio 1.3 (1.0-2.8); Alkaline Phosphatase 146 U/L (38-126); Aspartate Aminotransferase 129 IU/L (14-36); BUN Creatinine Ratio 6.4 (6-22); Bilirubin Total 0.3 mg/dL (0.2-1.3); Blood Urea Nitrogen 3 mg/dL (7-17); Calcium 8.8 mg/dL (8.4-10.2); Carbon Dioxide 25 mmol/L (22-32); Chloride 111 mmol/L (98-107); Estimated Glomerular Filt Rate > 60.0 mL/min (>60); Globulin 3.2 g/dL (1.7-4.1); Glucose 101 mg/dL (70-100); HEMOLYSIS < 15 (0-50); Potassium 3.3 mmol/L (3.4-5.1); Sodium 148 mmol/L (137-145); Total Protein 7.3 g/dL (6.3-8.2)
[2020-08-27 03:22] LABS: Ethanol (ETOH) 371 mg/dL
--- NOTE | 2020-08-27 03:33 | ED_ITS ---
HPI - Alcohol <Lavell Roe DO - Last Filed: 08/28/20 03:51> General Chief Complaint: Toxicology Problem Stated Complaint: ETOH Time Seen by Provider: 08/27/20 02:02 Source: EMS Mode of arrival: EMS Limitations: other History of Present Illness HPI narrative: 49-year-old female smoker, drinker with hypothyroid presents by EMS for evaluation of intoxication. The circumstances are bit unclear but it sounds like her son called EMS because he was concerned that she was slurring her words and was afraid she might hurt herself. The patient admits to drinking a fair amount of alcohol today. She denies any suicidal or homicidal ideation. She denies any headache or blurred vision. She has had no recent injuries. She is a rather poor historian and does not contribute to much well being examined MD complaint: alcohol intoxication Last drink: just prior to this admission Chronic alcohol use: No Previous visits for alcohol intoxication: No Recent trauma: No Treatments prior to arrival: none Related Data Previous Rx's Medication Instructions Recorded gabapentin 300 mg capsule 600 mg PO TID #84 cap 07/30/20 levothyroxine 50 mcg tablet 50 mcg PO DAILY #14 tab 08/08/20 fluconazole 150 mg PO DAILY #1 tab 08/10/20 sulfamethoxazole-trimethoprim 1 tab PO BID #14 tab 08/10/20 [Bactrim DS] Allergies Allergy/AdvReac Type Severity Reaction Status Date / Time iodine Allergy Verified 08/10/20 19:18 Review of Systems <DO Yoselyn Malloy Last Filed: 08/28/20 03:51> Constitutional Constitutional: Denies chills, Denies fatigue, Denies fever(s), Denies frequent falls, Denies lethargy and Denies weakness Eyes Eyes: Denies change in vision, Denies eye discharge, Denies irritation and Denies loss of vision ENT Ears, Nose, Mouth, and Throat: Denies change in voice, Denies dizziness, Denies neck pain, Denies sore throat and Denies throat swelling Cardiovascular Cardiovascular: Denies chest pain, Denies irregular heart rhythm, Denies lightheadedness, Denies palpitations, Denies dyspnea, Denies dyspnea on exertion and Denies orthopnea Respiratory Respiratory: Denies cough, Denies dyspnea, Denies dyspnea on exertion and Denies wheezing Gastrointestinal Gastrointestinal: Denies abdominal pain, Denies change in bowel habits, Denies diarrhea, Denies nausea and Denies vomiting Musculoskeletal Musculoskeletal: Denies neck pain and Denies numbness Integumentary/Breasts Skin/Breast: Denies pruritus, Denies erythema, Denies rash and Denies wounds Neurologic Neurologic: Denies behavioral changes, Denies confusion, Denies dizziness, Denies frequent falls, Denies loss of vision, Denies numbness and Denies weakness Psychiatric Psychiatric: Denies anxiety, Denies behavioral changes, Denies confusion, Denies depression, Denies homicidal ideation and Denies suicidal ideation Endocrine Endocrine: Denies fatigue, Denies flushing and Denies palpitations Hematologic/Lymphatic Hematologic/Lymphatic: Denies easy bruising Allergic/Immunologic Allergic/Immunologic: Denies urticaria, Denies throat swelling and Denies wheezing Patient History <Lavell Roe DO - Last Filed: 08/28/20 03:51> Medical History Alcohol abuse Colitis Distal paresthesia Neuropathy No significant medical problems Right upper quadrant pain Social History household members: none Smoking Status: Current every day smoker Smoking Status: Current every day smoker tobacco type: cigarettes alcohol intake frequency: 0-2 drinks per day Substance Use Type: does not use Exam <Lavell Roe DO - Last Filed: 08/28/20 03:51> Narrative Exam Narrative: GENERAL: [49] year old patient appears stated age. Well- nourished, well-developed patient, in mild distress. Easily arousable but resting comfortably, GCS 14, slurring words and smells of alcohol HEAD: Atraumatic. Normocephalic. No evidence of trauma or depressed skull fractures EYES: Pupils equal round and reactive. No hyphema Extraocular motions intact. No scleral icterus. No injection or drainage. ENT: Nose without bleeding, purulent drainage. No nasal septal hematoma Throat without erythema, tonsillar hypertrophy or exudate. Airway patent. NECK: Trachea midline. Non tender CARDIOVASCULAR: Regular rate and rhythm without murmurs, gallops, or rubs. RESPIRATORY: Clear to auscultation. Breath sounds equal bilaterally. No wheezes, rales, or rhonchi. GASTROINTESTINAL: Abdomen soft, non-tender, nondistended. EXTREMITIES: No edema or joint tenderness. BACK: Nontender without deformity or crepitance. No flank tenderness. NEURO: Awake and alert, sluggish to respond, slurring her words SKIN: No rash or erythema of visible areas Initial Vital Signs Initial Vital Signs: Vital Signs Temperature 97.6 F 08/27/20 10:07 Pulse Rate 103 H 08/27/20 10:07 Respiratory Rate 20 08/27/20 10:07 Blood Pressure 118/78 08/27/20 10:07 Pulse Oximetry 103 H 08/27/20 10:07 <Katy Medina DO - Last Filed: 08/27/20 10:14> Initial Vital Signs Initial Vital Signs: Vital Signs Temperature 97.6 F 08/27/20 10:07 Pulse Rate 103 H 08/27/20 10:07 Respiratory Rate 20 08/27/20 10:07 Blood Pressure 118/78 08/27/20 10:07 Pulse Oximetry 103 H 08/27/20 10:07 Scores <Lavell Roe DO - Last Filed: 08/28/20 03:51> GCS Ronnie coma scale eye opening: Spontaneous [place] coma scale verbal response: Confused [place] coma scale motor response: Obey commands [place] coma scale total score: 14 Course <Lavell Roe DO - Last Filed: 08/28/20 03:51> Orders Ordered: Discontinued Medications Sodium Chloride (Normal Saline 0.9%) 1,000 mls @ 1,000 mls/hr IV BOLUS ONE Stop: 08/27/20 03:20 Last Infusion: 08/27/20 04:05 Dose: 0 mls/hr Documented by: Admin: 08/27/20 03:00 Dose: 1,000 mls/hr Documented by: FUAD Ondansetron HCl (Ondansetron 4 Mg/2 Ml Inj) 4 mg IV Q4HR PRN PRN Reason: Nausea And Vomiting Last Admin: 08/27/20 03:03 Dose: 4 mg Documented by: FUAD Vital Signs Vital signs: Vital Signs - 8 hr 08/27/20 10:07 Temperature 97.6 F Pulse Rate 103 H Respiratory Rate 20 Blood Pressure 118/78 Pulse Oximetry 103 H <Katy Medina DO - Last Filed: 08/27/20 10:14> Orders Ordered: Discontinued Medications Sodium Chloride (Normal Saline 0.9%) 1,000 mls @ 1,000 mls/hr IV BOLUS ONE Stop: 08/27/20 03:20 Last Infusion: 08/27/20 04:05 Dose: 0 mls/hr Documented by: Admin: 08/27/20 03:00 Dose: 1,000 mls/hr Documented by: FUAD Ondansetron HCl (Ondansetron 4 Mg/2 Ml Inj) 4 mg IV Q4HR PRN PRN Reason: Nausea And Vomiting Last Admin: 08/27/20 03:03 Dose: 4 mg Documented by: FUAD Vital Signs Vital signs: Vital Signs - 8 hr 08/27/20 10:07 Temperature 97.6 F Pulse Rate 103 H Respiratory Rate 20 Blood Pressure 118/78 Pulse Oximetry 103 H MDM - Alcohol <Lavell Roe DO - Last Filed: 08/28/20 03:51> Lab Data Result diagrams: 08/27/20 02:55 08/27/20 02:55 Labs: Lab Results 08/27/20 08/27/20 08/27/20 Range/Units 02:55 02:55 02:55 WBC 5.4 (4.5-11.0) X10^3/uL RBC 3.95 L (4.0-5.2) X10^6/uL Hgb 13.3 (12.0-16.0) g/dL Hct 39.6 (36-46) % MCV 100.3 H (80-100) fL MCH 33.7 (26-34) PG MCHC 33.6 (30-36) % RDW 14.3 (11.6-14.8) % Plt Count 242 (150-400) X10^3/uL Neut % (Auto) 53.8 (50-75) % Lymph % (Auto) 36.8 (25-40) % [place] % (Auto) 6.1 (3-14) % Eos % (Auto) 1.9 L (2-4) % Baso % (Auto) 1.4 (0-2) % Neut # (Auto) 2900 (5069-8244) /uL Lymph # (Auto) 2000 (3682-5699) /uL [place] # (Auto) 300 (0-900) /uL Eos # (Auto) 100 (0-450) /uL Baso # (Auto) 100 (0-100) /uL Sodium 148 H (137-145) mmol/L Potassium 3.3 L (3.4-5.1) mmol/L Chloride 111 H (98-107) mmol/L Carbon Dioxide 25 (22-32) mmol/L BUN 3 L (7-17) mg/dL Creatinine 0.47 L (0.52-1.04) mg/dL Estimated GFR > 60.0 (>60) mL/min BUN/Creatinine Ratio 6.4 (6-22) Glucose 101 H (70-100) mg/dL Calcium 8.8 (8.4-10.2) mg/dL Total Bilirubin 0.3 (0.2-1.3) mg/dL AST 129 H (14-36) IU/L ALT 64 H (<35) IU/L Alkaline Phosphatase 146 H (38-126) U/L Total Protein 7.3 (6.3-8.2) g/dL Albumin 4.1 (3.5-5.0) g/dL Globulin 3.2 (1.7-4.1) g/dL Albumin/Globulin Ratio 1.3 (1.0-2.8) TSH 2.44 (0.47-4.68) uIU/mL Urine Color Urine Appearance Urine pH (4.5-8.0) Ur Specific [place] (1.000-1.035) Urine Protein (Negative) Urine Glucose (UA) (Negative) g/dL Urine Ketones (NEGATIVE) Urine Occult Blood (Negative) Urine Nitrate (Negative) Urine Bilirubin (NEGATIVE) Urine Urobilinogen (0.2) E.U./dL Ur Leukocyte Esterase (NEGATIVE) Urine RBC (0-5/HPF) Urine WBC (0-5/HPF) Urine Bacteria (None) Ur Culture Indicated? U Opiates 300ng/mL cut (Negative) Ur Oxycodone Screen (Negative) Urine Methadone Screen (Negative) Ur Barbiturates Screen (Negative) U Tricyclic Antidepress (Negative) Ur Phencyclidine Scrn (Negative) Ur Amphetamines Screen (Negative) U Methamphetamines Scrn (Negative) Ur MDMA Scrn (Ecstasy) (Negative) U Benzodiazepines Scrn (Negative) Urine Cocaine Screen (Negative) U Marijuana (THC) Screen (Negative) Ethyl Alcohol 371 H ( - 10) mg/dL 08/27/20 08/27/20 Range/Units 06:05 06:05 WBC (4.5-11.0) X10^3/uL RBC (4.0-5.2) X10^6/uL Hgb (12.0-16.0) g/dL Hct (36-46) % MCV (80-100) fL MCH (26-34) PG MCHC (30-36) % RDW (11.6-14.8) % Plt Count (150-400) X10^3/uL Neut % (Auto) (50-75) % Lymph % (Auto) (25-40) % [place] % (Auto) (3-14) % Eos % (Auto) (2-4) % Baso % (Auto) (0-2) % Neut # (Auto) (9173-5609) /uL Lymph # (Auto) (4746-9418) /uL [place] # (Auto) (0-900) /uL Eos # (Auto) (0-450) /uL Baso # (Auto) (0-100) /uL Sodium (137-145) mmol/L Potassium (3.4-5.1) mmol/L Chloride (98-107) mmol/L Carbon Dioxide (22-32) mmol/L BUN (7-17) mg/dL Creatinine (0.52-1.04) mg/dL Estimated GFR (>60) mL/min BUN/Creatinine Ratio (6-22) Glucose (70-100) mg/dL Calcium (8.4-10.2) mg/dL Total Bilirubin (0.2-1.3) mg/dL AST (14-36) IU/L ALT (<35) IU/L Alkaline Phosphatase (38-126) U/L Total Protein (6.3-8.2) g/dL Albumin (3.5-5.0) g/dL Globulin (1.7-4.1) g/dL Albumin/Globulin Ratio (1.0-2.8) TSH (0.47-4.68) uIU/mL Urine Color Yellow Urine Appearance Clear Urine pH 6.0 (4.5-8.0) Ur Specific [place] <=1.005 (1.000-1.035) Urine Protein Negative (Negative) Urine Glucose (UA) Negative (Negative) g/dL Urine Ketones Negative (NEGATIVE) Urine Occult Blood Negative (Negative) Urine Nitrate Negative (Negative) Urine Bilirubin Negative (NEGATIVE) Urine Urobilinogen 0.2 (0.2) E.U./dL Ur Leukocyte Esterase Negative (NEGATIVE) Urine RBC None seen (0-5/HPF) Urine WBC None seen (0-5/HPF) Urine Bacteria None seen (None) Ur Culture Indicated? Cult not indicated U Opiates 300ng/mL cut Positive H (Negative) Ur Oxycodone Screen Negative (Negative) Urine Methadone Screen Negative (Negative) Ur Barbiturates Screen Negative (Negative) U Tricyclic Antidepress Negative (Negative) Ur Phencyclidine Scrn Negative (Negative) Ur Amphetamines Screen Negative (Negative) U Methamphetamines Scrn Positive H (Negative) Ur MDMA Scrn (Ecstasy) Negative (Negative) U Benzodiazepines Scrn Negative (Negative) Urine Cocaine Screen Negative (Negative) U Marijuana (THC) Screen Negative (Negative) Ethyl Alcohol ( - 10) mg/dL <Katy Medina, DO - Last Filed: 08/27/20 10:14> Lab Data Attestation: I reviewed the patient's lab results. Labs: Lab Results 08/27/20 08/27/20 08/27/20 Range/Units 02:55 02:55 02:55 WBC 5.4 (4.5-11.0) X10^3/uL RBC 3.95 L (4.0-5.2) X10^6/uL Hgb 13.3 (12.0-16.0) g/dL Hct 39.6 (36-46) % MCV 100.3 H (80-100) fL MCH 33.7 (26-34) PG MCHC 33.6 (30-36) % RDW 14.3 (11.6-14.8) % Plt Count 242 (150-400) X10^3/uL Neut % (Auto) 53.8 (50-75) % Lymph % (Auto) 36.8 (25-40) % [place] % (Auto) 6.1 (3-14) % Eos % (Auto) 1.9 L (2-4) % Baso % (Auto) 1.4 (0-2) % Neut # (Auto) 2900 (1255-8581) /uL Lymph # (Auto) 2000 (3873-5249) /uL [place] # (Auto) 300 (0-900) /uL Eos # (Auto) 100 (0-450) /uL Baso # (Auto) 100 (0-100) /uL Sodium 148 H (137-145) mmol/L Potassium 3.3 L (3.4-5.1) mmol/L Chloride 111 H (98-107) mmol/L Carbon Dioxide 25 (22-32) mmol/L BUN 3 L (7-17) mg/dL Creatinine 0.47 L (0.52-1.04) mg/dL Estimated GFR > 60.0 (>60) mL/min BUN/Creatinine Ratio 6.4 (6-22) Glucose 101 H (70-100) mg/dL Calcium 8.8 (8.4-10.2) mg/dL Total Bilirubin 0.3 (0.2-1.3) mg/dL AST 129 H (14-36) IU/L ALT 64 H (<35) IU/L Alkaline Phosphatase 146 H (38-126) U/L Total Protein 7.3 (6.3-8.2) g/dL Albumin 4.1 (3.5-5.0) g/dL Globulin 3.2 (1.7-4.1) g/dL Albumin/Globulin Ratio 1.3 (1.0-2.8) TSH 2.44 (0.47-4.68) uIU/mL Urine Color Urine Appearance Urine pH (4.5-8.0) Ur Specific [place] (1.000-1.035) Urine Protein (Negative) Urine Glucose (UA) (Negative) g/dL Urine Ketones (NEGATIVE) Urine Occult Blood (Negative) Urine Nitrate (Negative) Urine Bilirubin (NEGATIVE) Urine Urobilinogen (0.2) E.U./dL Ur Leukocyte Esterase (NEGATIVE) Urine RBC (0-5/HPF) Urine WBC (0-5/HPF) Urine Bacteria (None) Ur Culture Indicated? U Opiates 300ng/mL cut (Negative) Ur Oxycodone Screen (Negative) Urine Methadone Screen (Negative) Ur Barbiturates Screen (Negative) U Tricyclic Antidepress (Negative) Ur Phencyclidine Scrn (Negative) Ur Amphetamines Screen (Negative) U Methamphetamines Scrn (Negative) Ur MDMA Scrn (Ecstasy) (Negative) U Benzodiazepines Scrn (Negative) Urine Cocaine Screen (Negative) U Marijuana (THC) Screen (Negative) Ethyl Alcohol 371 H ( - 10) mg/dL 08/27/20 08/27/20 Range/Units 06:05 06:05 WBC (4.5-11.0) X10^3/uL RBC (4.0-5.2) X10^6/uL Hgb (12.0-16.0) g/dL Hct (36-46) % MCV (80-100) fL MCH (26-34) PG MCHC (30-36) % RDW (11.6-14.8) % Plt Count (150-400) X10^3/uL Neut % (Auto) (50-75) % Lymph % (Auto) (25-40) % [place] % (Auto) (3-14) % Eos % (Auto) (2-4) % Baso % (Auto) (0-2) % Neut # (Auto) (1551-5452) /uL Lymph # (Auto) (1794-4836) /uL [place] # (Auto) (0-900) /uL Eos # (Auto) (0-450) /uL Baso # (Auto) (0-100) /uL Sodium (137-145) mmol/L Potassium (3.4-5.1) mmol/L Chloride (98-107) mmol/L Carbon Dioxide (22-32) mmol/L BUN (7-17) mg/dL Creatinine (0.52-1.04) mg/dL Estimated GFR (>60) mL/min BUN/Creatinine Ratio (6-22) Glucose (70-100) mg/dL Calcium (8.4-10.2) mg/dL Total Bilirubin (0.2-1.3) mg/dL AST (14-36) IU/L ALT (<35) IU/L Alkaline Phosphatase (38-126) U/L Total Protein (6.3-8.2) g/dL Albumin (3.5-5.0) g/dL Globulin (1.7-4.1) g/dL Albumin/Globulin Ratio (1.0-2.8) TSH (0.47-4.68) uIU/mL Urine Color Yellow Urine Appearance Clear Urine pH 6.0 (4.5-8.0) Ur Specific [place] <=1.005 (1.000-1.035) Urine Protein Negative (Negative) Urine Glucose (UA) Negative (Negative) g/dL Urine Ketones Negative (NEGATIVE) Urine Occult Blood Negative (Negative) Urine Nitrate Negative (Negative) Urine Bilirubin Negative (NEGATIVE) Urine Urobilinogen 0.2 (0.2) E.U./dL Ur Leukocyte Esterase Negative (NEGATIVE) Urine RBC None seen (0-5/HPF) Urine WBC None seen (0-5/HPF) Urine Bacteria None seen (None) Ur Culture Indicated? Cult not indicated U Opiates 300ng/mL cut Positive H (Negative) Ur Oxycodone Screen Negative (Negative) Urine Methadone Screen Negative (Negative) Ur Barbiturates Screen Negative (Negative) U Tricyclic Antidepress Negative (Negative) Ur Phencyclidine Scrn Negative (Negative) Ur Amphetamines Screen Negative (Negative) U Methamphetamines Scrn Positive H (Negative) Ur MDMA Scrn (Ecstasy) Negative (Negative) U Benzodiazepines Scrn Negative (Negative) Urine Cocaine Screen Negative (Negative) U Marijuana (THC) Screen Negative (Negative) Ethyl Alcohol ( - 10) mg/dL MDM Narrative Medical decision making narrative: Patient signed out to me by Dr. Roe. She is now awake alert asking for a ride home. Clinically sober. Her son is able to come and pick her up Discharge Plan Departure Patient Disposition: Home Clinical Impression: Alcoholic intoxication Instructions: DI for Alcohol Use Disorder Activity Restrictions/Additional Instructions: *You have been diagnosed with alcohol intoxication *Continue to take medications as directed *Follow up with your primary care provider in 2-3 days *Return to ER if you should have any new, worsening or concerning symptoms Prescriptions: No Action gabapentin 300 mg capsule 600 mg PO TID Qty: 84 RF: 0 levothyroxine 50 mcg tablet 50 mcg PO DAILY Qty: 14 RF: 0 sulfamethoxazole-trimethoprim [Bactrim DS] 800-160 mg tablet 1 tab PO BID Qty: 14 RF: 0 fluconazole 150 mg tablet 150 mg PO DAILY Qty: 1 RF: 0 Referrals: Anam Taylor, [Primary Care Provider] -
[2020-08-27 03:51] LABS: Thyroid Stimulating Hormone 2.44 uIU/mL (0.47-4.68)
[2020-08-27 06:19] LABS: Appearance Urine UA CLEAR; Bacteria Urine None Seen; Bilirubin Urine UA NEGATIVE (NEGATIVE); Color Urine UA YELLOW; Glucose Urine UA NEGATIVE (Negative); Ketones Urine UA NEGATIVE (NEGATIVE); Leukocyte Esterase Urine UA NEGATIVE (NEGATIVE); Nitrite Urine UA NEGATIVE (Negative); Occult Blood Urine UA NEGATIVE (Negative); Protein Urine UA NEGATIVE (Negative); RBC Urine None Seen (0-5/HPF); Specific Gravity Urine UA <=1.005 (1.000-1.035); Urobilinogen Urine UA 0.2 E.U./dL (0.2); WBC Urine None Seen (0-5/HPF)
[2020-08-27 06:22] LABS: Ur Creatinine 20 (Normal); Ur Specific Gravity <1.005 (Normal)
[2020-08-27 06:23] LABS: UR Morphine/Opiate cutoff 300 Positive (Negative); Urine Amphetamines Negative (Negative); Urine Barbiturates Negative (Negative); Urine Benzodiazepines Negative (Negative); Urine Cocaine Negative (Negative); Urine MDMA Negative (Negative); Urine Methadone Negative (Negative); Urine Methamphetamines Positive (Negative); Urine Oxycodone Negative (Negative); Urine Phencyclidine Negative (Negative); Urine Tetrahydrocannabinol Negative (Negative); Urine Tricyclic Antidepressant Negative (Negative); Urine pH 6 (Normal)
[2020-08-27 06:49] LABS: Culture Indicated Urine Cult Not Indicated
--- NOTE | 2020-08-27 07:54 | PC.NURSE ---
Pt asked us to contact her son Agusto at [phone] for a ride home
[2020-08-27 10:07] VITALS: BP 118/78; PULSE 103; RESP 20; TEMP 36.4; O2SAT 103
== END 2020-08-27 10:13 | disposition home or self-care (01) ==
PROVIDERS: Emergency Medicine; Emergency Provider Emergency Medicine; PCP Family Medicine
DX: F10.929 Alcohol use, unspecified with intoxication, unspecified (principal)
CPT/HCPCS: 36415; 80053; 80305; 80320; 81001; 84443; 85025; 96361; 96374; 99284; J2405

== ENCOUNTER 2020-10-04 22:22 | Emergency (ER) | payer OTHER, MEDICAID, SELFPAY ==
[2020-07-16 09:29] VITALS: BMI 21.2
[2020-10-04 22:25] VITALS: BP 141/86; PULSE 101; RESP 18; TEMP 36.8; O2SAT 97; BMI 21.9
--- NOTE | 2020-10-04 23:13 | ED.DIZZY ---
HPI - Dizziness General Chief Complaint: Syncope Stated Complaint: ETOH Time Seen by Provider: 10/04/20 23:11 Source: patient and EMS Mode of arrival: EMS Limitations: altered mental status (She is intoxicated) History of Present Illness HPI Narrative: The patient arrives by EMS, she gave EMS various complaints but she complains to me about abdominal pain. Had waking her to speak with her. Her speech is slurred. She smells heavily of alcohol. She complains of back pain, stating she has neuropathy. She also has abdominal pain. She denies chest pain or cough. She has no nausea vomiting. The patient is a poor historian. She cannot definitively answer questions about pancreatitis or gastritis, or liver problems. Regarding pain, she reports her right upper quadrant. Related Data Previous Rx's Medication Instructions Recorded gabapentin 300 mg capsule 600 mg PO TID #84 cap 07/30/20 levothyroxine 50 mcg tablet 50 mcg PO DAILY #14 tab 08/08/20 fluconazole 150 mg PO DAILY #1 tab 08/10/20 sulfamethoxazole-trimethoprim 1 tab PO BID #14 tab 08/10/20 [Bactrim DS] Allergies Allergy/AdvReac Type Severity Reaction Status Date / Time iodine Allergy Verified 08/10/20 19:18 Review of Systems Review of Systems ROS Unobtainable: All systems reviewed & are unremarkable except as noted in HPI and below and Other (Details are limited dueto the patient's medical conditions.) Patient History Medical History Alcohol abuse Colitis Distal paresthesia Neuropathy No significant medical problems Right upper quadrant pain Social History household members: none Smoking Status: Current every day smoker Smoking Status: Current every day smoker tobacco type: cigarettes alcohol intake frequency: 3 or more drinks per day Alcohol type: hard liquor Substance Use Type: does not use Exam Initial Vital Signs Initial Vital Signs: Vital Signs Temperature 98.3 F 10/04/20 22:25 Pulse Rate 101 H 10/04/20 22:25 Respiratory Rate 18 10/04/20 22:25 Blood Pressure 141/86 H 10/04/20 22:25 Pulse Oximetry 97 10/04/20 22:25 Const General: cooperative and well developed Nutritional Appearance: well nourished [facility] Head: normocephalic and atraumatic Mouth: oral mucosae normal and moist mucous membranes Throat: tonsils normal and uvula midline Eyes Pupils: PERRL and other (No nystagmus) EOM: EOM intact bilaterally Neck Neck: No tender Chest Other: Nontender Resp Effort & Inspection: normal respiratory effort and able to speak in complete sentences Auscultation: clear to auscultation bilaterally, no rales, no rhonchi and no wheezes Cardio Rate: regular rate Rhythm: regular rhythm Heart Sounds: S1 normal, S2 normal, no click, no gallops, no murmurs and no rubs Pulses: normal peripheral pulses GI Other: Epigastric tenderness. No distension. No guarding rebound. Skin General: no rashes or lesions noted Neuro Other: Sedated. Intoxicated. Limited responses to questions. No motor deficits. Extrem General: full ROM, no clubbing, cyanosis or edema, no pedal edema and no calf tenderness Course Course Course Narrative: The patient has been sedated, and IV hydrated. Toradol was given for her abdominal pain. Labs indicate significant alcohol intoxication and methamphetamine use. She had mild hypokalemia. She is given potassium replacement. Prior to discharge she is up and about without assistance. She is taking herself to the bathroom. She is doing much better and is ready for discharge. Orders Ordered: ED Orders 10/04/20 22:47 EKG-12 Lead Routine 10/04/20 23:30 Complete Blood Count AUTO DIFF Stat Comprehensive Metabolic Panel Stat Ethanol (ETOH) Stat Lipase Stat 10/05/20 00:35 Urinalysis and Microscopic Stat Urine Culture Stat Urine Drug Screen, Rapid Stat Sodium Chloride (Normal Saline 0.9%) 1,000 mls @ 1,000 mls/hr IV BOLUS PRN PRN Reason: Fluid replacement Discontinued Medications Sodium Chloride (Normal Saline 0.9%) 1,000 mls @ 1,000 mls/hr IV BOLUS ONE Stop: 10/05/20 00:10 Last Infusion: 10/05/20 03:02 Dose: 0 mls/hr Documented by: Admin: 10/04/20 23:47 Dose: 1,000 mls/hr Documented by: SONAL POTASSIUM CHLORIDE IN WATER (Potassium Cl 10 Meq/100 Ml Cielo) 10 meq in 100 mls @ 100 mls/hr IV Q1H JUVE Stop: 10/05/20 02:50 Last Admin: 10/05/20 01:34 Dose: 100 mls/hr Documented by: SONAL Ketorolac Tromethamine (Ketorolac 30 Mg/Ml Vial) 30 mg IV NOW ONE Stop: 10/04/20 23:12 Last Admin: 10/04/20 23:49 Dose: 30 mg Documented by: SONAL Ondansetron HCl (Ondansetron 4 Mg/2 Ml Inj) 4 mg IV NOW ONE Stop: 10/04/20 23:42 Last Admin: 10/04/20 23:49 Dose: 4 mg Documented by: SONAL Vital Signs Vital signs: Vital Signs - 8 hr 10/04/20 22:25 Temperature 98.3 F Pulse Rate 101 H Respiratory Rate 18 Blood Pressure 141/86 H Pulse Oximetry 97 MDM - Dizziness Lab Data Result diagrams: 10/04/20 23:30 10/04/20 23:30 Labs: Lab Results 10/04/20 10/04/20 10/05/20 Range/Units 23:30 23:30 00:35 WBC 6.7 (4.5-11.0) X10^3/uL RBC 3.70 L (4.0-5.2) X10^6/uL Hgb 11.9 L (12.0-16.0) g/dL Hct 36.3 (36-46) % MCV 98.1 (80-100) fL MCH 32.2 (26-34) PG MCHC 32.8 (30-36) % RDW 17.4 H (11.6-14.8) % Plt Count 155 (150-400) X10^3/uL Neut % (Auto) 52.2 (50-75) % Lymph % (Auto) 29.3 (25-40) % King % (Auto) 16.6 H (3-14) % Eos % (Auto) 0.7 L (2-4) % Baso % (Auto) 1.2 (0-2) % Neut # (Auto) 3500 (7284-9551) /uL Lymph # (Auto) 2000 (8939-0399) /uL King # (Auto) 1100 H (0-900) /uL Eos # (Auto) 0 (0-450) /uL Baso # (Auto) 100 (0-100) /uL Sodium 139 (137-145) mmol/L Potassium 3.2 L (3.4-5.1) mmol/L Chloride 101 (98-107) mmol/L Carbon Dioxide 20 L (22-32) mmol/L BUN 4 L (7-17) mg/dL Creatinine 0.52 (0.52-1.04) mg/dL Estimated GFR > 60.0 (>60) mL/min BUN/Creatinine Ratio 7.7 (6-22) Glucose 100 (70-100) mg/dL Calcium 10.3 H (8.4-10.2) mg/dL Total Bilirubin 0.6 (0.2-1.3) mg/dL AST 146 H (14-36) IU/L ALT 66 H (<35) IU/L Alkaline Phosphatase 149 H (38-126) U/L Total Protein 8.0 (6.3-8.2) g/dL Albumin 4.7 (3.5-5.0) g/dL Globulin 3.3 (1.7-4.1) g/dL Albumin/Globulin Ratio 1.4 (1.0-2.8) Lipase 112 (23-300) U/L Urine Color Yellow Urine Appearance Clear Urine pH 5.5 (4.5-8.0) Ur Specific Muir <=1.005 (1.000-1.035) Urine Protein Negative (Negative) Urine Glucose (UA) Negative (Negative) g/dL Urine Ketones Negative (NEGATIVE) Urine Occult Blood Negative (Negative) Urine Nitrate Negative (Negative) Urine Bilirubin Negative (NEGATIVE) Urine Urobilinogen 0.2 (0.2) E.U./dL Ur Leukocyte Esterase Negative (NEGATIVE) Urine RBC None seen (0-5/HPF) Urine WBC 1-5/hpf (0-5/HPF) Ur Squamous Epith Cells 1-5 /hpf (0-5/HPF) Urine Bacteria Many (>30) H (None) Ur Culture Indicated? Specimen cultured U Opiates 300ng/mL cut (Negative) Ur Oxycodone Screen (Negative) Urine Methadone Screen (Negative) Ur Barbiturates Screen (Negative) U Tricyclic Antidepress (Negative) Ur Phencyclidine Scrn (Negative) Ur Amphetamines Screen (Negative) U Methamphetamines Scrn (Negative) Ur MDMA Scrn (Ecstasy) (Negative) U Benzodiazepines Scrn (Negative) Urine Cocaine Screen (Negative) U Marijuana (THC) Screen (Negative) Ethyl Alcohol 397 H ( - 10) mg/dL 10/05/20 Range/Units 00:35 WBC (4.5-11.0) X10^3/uL RBC (4.0-5.2) X10^6/uL Hgb (12.0-16.0) g/dL Hct (36-46) % MCV (80-100) fL MCH (26-34) PG MCHC (30-36) % RDW (11.6-14.8) % Plt Count (150-400) X10^3/uL Neut % (Auto) (50-75) % Lymph % (Auto) (25-40) % King % (Auto) (3-14) % Eos % (Auto) (2-4) % Baso % (Auto) (0-2) % Neut # (Auto) (1251-4694) /uL Lymph # (Auto) (7003-3299) /uL King # (Auto) (0-900) /uL Eos # (Auto) (0-450) /uL Baso # (Auto) (0-100) /uL Sodium (137-145) mmol/L Potassium (3.4-5.1) mmol/L Chloride (98-107) mmol/L Carbon Dioxide (22-32) mmol/L BUN (7-17) mg/dL Creatinine (0.52-1.04) mg/dL Estimated GFR (>60) mL/min BUN/Creatinine Ratio (6-22) Glucose (70-100) mg/dL Calcium (8.4-10.2) mg/dL Total Bilirubin (0.2-1.3) mg/dL AST (14-36) IU/L ALT (<35) IU/L Alkaline Phosphatase (38-126) U/L Total Protein (6.3-8.2) g/dL Albumin (3.5-5.0) g/dL Globulin (1.7-4.1) g/dL Albumin/Globulin Ratio (1.0-2.8) Lipase (23-300) U/L Urine Color Urine Appearance Urine pH (4.5-8.0) Ur Specific Muir (1.000-1.035) Urine Protein (Negative) Urine Glucose (UA) (Negative) g/dL Urine Ketones (NEGATIVE) Urine Occult Blood (Negative) Urine Nitrate (Negative) Urine Bilirubin (NEGATIVE) Urine Urobilinogen (0.2) E.U./dL Ur Leukocyte Esterase (NEGATIVE) Urine RBC (0-5/HPF) Urine WBC (0-5/HPF) Ur Squamous Epith Cells (0-5/HPF) Urine Bacteria (None) Ur Culture Indicated? U Opiates 300ng/mL cut Positive H (Negative) Ur Oxycodone Screen Negative (Negative) Urine Methadone Screen Negative (Negative) Ur Barbiturates Screen Negative (Negative) U Tricyclic Antidepress Negative (Negative) Ur Phencyclidine Scrn Negative (Negative) Ur Amphetamines Screen Negative (Negative) U Methamphetamines Scrn Positive H (Negative) Ur MDMA Scrn (Ecstasy) Negative (Negative) U Benzodiazepines Scrn Negative (Negative) Urine Cocaine Screen Negative (Negative) U Marijuana (THC) Screen Negative (Negative) Ethyl Alcohol ( - 10) mg/dL Discharge Plan Departure Clinical Impression: Alcoholism, Methamphetamine abuse Instructions: Alcohol Use Disorder, Methamphetamine Activity Restrictions/Additional Instructions: I was history of follow-up with your doctor, or local provider regarding your use of methamphetamine and alcohol. You should consider detox/rehab. Return to the ER as needed. Prescriptions: No Action gabapentin 300 mg capsule 600 mg PO TID Qty: 84 RF: 0 levothyroxine 50 mcg tablet 50 mcg PO DAILY Qty: 14 RF: 0 sulfamethoxazole-trimethoprim [Bactrim DS] 800-160 mg tablet 1 tab PO BID Qty: 14 RF: 0 fluconazole 150 mg tablet 150 mg PO DAILY Qty: 1 RF: 0 Referrals: Anam Taylor, [Primary Care Provider] -
[2020-10-04 23:44] LABS: Add Manual Diff / Slide Review NO; Basophils Absolute Auto 100 /uL (0-100); Basophils Percent Auto 1.2 % (0-2); Eosinophils Absolute Auto 0 /uL (0-450); Eosinophils Percent Auto 0.7 % (2-4); Hematocrit 36.3 % (36-46); Hemoglobin 11.9 g/dL (12.0-16.0); Lymphocytes Absolute Auto 2000 /uL (1100-4500); Lymphocytes Percent Auto 29.3 % (25-40); Mean Corpuscular HGB Conc 32.8 % (30-36); Mean Corpuscular Hemoglobin 32.2 PG (26-34); Mean Corpuscular Volume 98.1 fL (80-100); Monocytes Absolute Auto 1100 /uL (0-900); Monocytes Percent Auto 16.6 % (3-14); Neutrophils Absolute Auto 3500 /uL (1500-7000); Neutrophils Percent Auto 52.2 % (50-75); Platelet Count 155 X10^3/uL (150-400); Red Cell Distribution Width 17.4 % (11.6-14.8); White Blood Cell Count 6.7 X10^3/uL (4.5-11.0)
[2020-10-04] MEDS: SODIUM CHLORIDE 0.9% 1,000 ML 1000 ML IV (23:47)
[2020-10-04] MEDS: ONDANSETRON 4 MG/2 ML INJ IV (23:49)
[2020-10-04] MEDS: KETOROLAC 30 MG/ML VIAL IV (23:49)
[2020-10-04 23:59] LABS: Alanine Aminotransferase 66 IU/L (<35); Albumin 4.7 g/dL (3.5-5.0); Albumin Globulin Ratio 1.4 (1.0-2.8); Alkaline Phosphatase 149 U/L (38-126); Aspartate Aminotransferase 146 IU/L (14-36); BUN Creatinine Ratio 7.7 (6-22); Bilirubin Total 0.6 mg/dL (0.2-1.3); Blood Urea Nitrogen 4 mg/dL (7-17); Calcium 10.3 mg/dL (8.4-10.2); Carbon Dioxide 20 mmol/L (22-32); Chloride 101 mmol/L (98-107); Estimated Glomerular Filt Rate > 60.0 mL/min (>60); Globulin 3.3 g/dL (1.7-4.1); Glucose 100 mg/dL (70-100); HEMOLYSIS < 15 (0-50); Lipase 112 U/L (23-300); Potassium 3.2 mmol/L (3.4-5.1); Sodium 139 mmol/L (137-145)
[2020-10-05] VITALS (12 sets, daily range): BP systolic 100–102; BP diastolic 54–58; PULSE 62–106; O2SAT 98–100
[2020-10-05 00:07] LABS: Ethanol (ETOH) 397 mg/dL
[2020-10-05 00:45] LABS: RBC Urine None Seen (0-5/HPF)
[2020-10-05 00:49] LABS: Appearance Urine UA CLEAR; Bilirubin Urine UA NEGATIVE (NEGATIVE); Color Urine UA YELLOW; Glucose Urine UA NEGATIVE (Negative); Ketones Urine UA NEGATIVE (NEGATIVE); Leukocyte Esterase Urine UA NEGATIVE (NEGATIVE); Nitrite Urine UA NEGATIVE (Negative); Occult Blood Urine UA NEGATIVE (Negative); Protein Urine UA NEGATIVE (Negative); Specific Gravity Urine UA <=1.005 (1.000-1.035); Urobilinogen Urine UA 0.2 E.U./dL (0.2)
[2020-10-05 00:58] LABS: pH Urine UA 5.5 (4.5-8.0)
[2020-10-05 00:59] LABS: UR Morphine/Opiate cutoff 300 Positive (Negative); Ur Creatinine 20 (Normal); Ur Specific Gravity <1.005 (Normal); Urine Amphetamines Negative (Negative); Urine Barbiturates Negative (Negative); Urine Benzodiazepines Negative (Negative); Urine Cocaine Negative (Negative); Urine MDMA Negative (Negative); Urine Methadone Negative (Negative); Urine Methamphetamines Positive (Negative); Urine Oxycodone Negative (Negative); Urine Phencyclidine Negative (Negative); Urine Tetrahydrocannabinol Negative (Negative); Urine Tricyclic Antidepressant Negative (Negative); Urine pH 5.5 (Normal)
[2020-10-05] MEDS: POTASSIUM CHLORIDE IN WATER 10 MEQ/100 ML PIGGYBACK 100 MEQ IV ×2 (01:34→04:20)
[2020-10-05 01:46] LABS: Bacteria Urine Many (>30); Culture Indicated Urine Specimen Cultured; Squamous Epithelial Cell Urine 1-5 /HPF (0-5/HPF); WBC Urine 1-5/HPF (0-5/HPF)
== END 2020-10-05 07:48 | disposition home or self-care (01) ==
PROVIDERS: Emergency Provider Emergency Medicine; PCP Family Medicine
DX: F10.20 Alcohol dependence, uncomplicated (principal); F15.10 Other stimulant abuse, uncomplicated; R10.11 Right upper quadrant pain
CPT/HCPCS: 36415; 80053; 80305; 80320; 81001; 83690; 85025; 87077; 87086; 87186; 93005; 93010; 96361; 96374; 96375; 99284; J1885; J2405

== ENCOUNTER → 2020-10-31 10:10 | Outpatient (CLI) | payer OTHER, MEDICAID, SELFPAY ==
[2020-07-16 09:29] VITALS: BMI 21.2
[2020-10-31 10:45] LABS: COVID19 -Nasal RAPID Negative (Negative)
== END ==
PROVIDERS: Visit Provider Physician Assistant
DX: K13.79 Other lesions of oral mucosa (principal)
CPT/HCPCS: 87635

== ENCOUNTER → 2020-12-09 17:11 | Outpatient (CLI) | payer OTHER, MEDICAID, SELFPAY ==
[2020-07-16 09:29] VITALS: BMI 21.2
--- NOTE | 2020-12-09 17:15 | DI.RAD.S_ITS ---
PROCEDURE: XR LUMBAR SPINE 2-3V INDICATIONS: progressive lbp TECHNIQUE: 3 views of the lumbar spine were acquired. COMPARISON: [facility], , L-SPINE 2-3 VIEWS, 04/11/2009, 15:00. FINDINGS: Bones: 5 [id number] vertebrae are present. There is normal bony alignment. No vertebral body compression fractures. No suspicious bony lesions. There is mild disc and foraminal narrowing noted at L5-S1. Soft tissues: Overlying bowel gas pattern is normal. No suspicious soft tissue calcifications. IMPRESSION: Minimal disc and foraminal narrowing noted at L5-S1, mildly progressive compared to 2008. Dictated by: Rebecca Byrd M.D. on 12/10/2020 at 10:38 Approved by: Rebecca Byrd M.D. on 12/10/2020 at 10:39
[2020-12-09 17:59] LABS: Add Manual Diff / Slide Review NO; Basophils Absolute Auto 0 /uL (0-100); Basophils Percent Auto 0.4 % (0-2); Eosinophils Absolute Auto 100 /uL (0-450); Eosinophils Percent Auto 1.7 % (2-4); Hematocrit 35.1 % (36-46); Hemoglobin 11.3 g/dL (12.0-16.0); Lymphocytes Absolute Auto 1700 /uL (1100-4500); Lymphocytes Percent Auto 31.4 % (25-40); Mean Corpuscular HGB Conc 32.1 % (30-36); Mean Corpuscular Hemoglobin 30.6 PG (26-34); Mean Corpuscular Volume 95.4 fL (80-100); Monocytes Absolute Auto 500 /uL (0-900); Monocytes Percent Auto 9.9 % (3-14); Neutrophils Absolute Auto 3100 /uL (1500-7000); Neutrophils Percent Auto 56.6 % (50-75); Platelet Count 327 X10^3/uL (150-400); Red Blood Cell Count 3.68 X10^6/uL (4.0-5.2); Red Cell Distribution Width 19.2 % (11.6-14.8); White Blood Cell Count 5.5 X10^3/uL (4.5-11.0)
[2020-12-09 18:16] LABS: Alanine Aminotransferase 44 IU/L (<35); Albumin 4.3 g/dL (3.5-5.0); Albumin Globulin Ratio 1.2 (1.0-2.8); Alkaline Phosphatase 92 U/L (38-126); Aspartate Aminotransferase 94 IU/L (14-36); BUN Creatinine Ratio 9.8 (6-22); Bilirubin Total 0.4 mg/dL (0.2-1.3); Blood Urea Nitrogen 5 mg/dL (7-17); Calcium 9.9 mg/dL (8.4-10.2); Carbon Dioxide 24 mmol/L (22-32); Chloride 110 mmol/L (98-107); Estimated Glomerular Filt Rate > 60.0 mL/min (>60); Globulin 3.5 g/dL (1.7-4.1); Glucose 89 mg/dL (70-100); HEMOLYSIS < 15 (0-50); Potassium 3.8 mmol/L (3.4-5.1); Sodium 145 mmol/L (137-145); Total Protein 7.8 g/dL (6.3-8.2)
[2020-12-09 18:31] LABS: Free T4, Direct Thyroxine 0.96 ng/dL (0.78-2.19); Ur Creatinine Normal (Normal); Ur Specific Gravity Normal (Normal); Urine pH Normal (Normal)
[2020-12-09 18:32] LABS: UR Morphine/Opiate cutoff 300 Positive (Negative); Urine Amphetamines Positive (Negative); Urine Barbiturates Negative (Negative); Urine Benzodiazepines Negative (Negative); Urine Cocaine Negative (Negative); Urine MDMA Negative (Negative); Urine Methadone Negative (Negative); Urine Methamphetamines Positive (Negative); Urine Oxycodone Negative (Negative); Urine Phencyclidine Negative (Negative); Urine Tetrahydrocannabinol Negative (Negative); Urine Tricyclic Antidepressant Negative (Negative)
[2020-12-09 18:45] LABS: Thyroid Stimulating Hormone 4.34 uIU/mL (0.47-4.68)
[2020-12-09 19:05] LABS: Vitamin B12 383 pg/mL (239-931)
== END ==
PROVIDERS: PCP Family Medicine; Referring Provider Family Medicine; Visit Provider Family Medicine
DX: M54.5 Low back pain (principal); E03.9 Hypothyroidism, unspecified; F10.10 Alcohol abuse, uncomplicated; G62.9 Polyneuropathy, unspecified
CPT/HCPCS: 36415; 72100; 80053; 80305; 82607; 84439; 84443; 85025

== ENCOUNTER → 2022-06-24 13:35 | Outpatient (CLI) | payer OTHER, MEDICAID, SELFPAY ==
[2020-07-16 09:29] VITALS: BMI 21.2
--- NOTE | 2022-06-24 13:36 | DI.RAD.S_ITS ---
PROCEDURE: XR HIP W PEL IF DONE LT 2V INDICATIONS: Eval and Treat TECHNIQUE: 2 views of the left hip were acquired. COMPARISON: None. FINDINGS: Moderate left hip osteoarthritis with joint space narrowing and marginal osteophytosis. Pincer type femoroacetabular impingement morphology. No suspicious bone lesion. IMPRESSION: Moderate left hip OA with pincer type JASON morphology. Dictated by: Jose Lowry M.D. on 06/24/2022 at 18:54 Approved by: Jose Lowry M.D. on 06/24/2022 at 18:54
--- NOTE | 2022-06-24 13:36 | DI.RAD.S_ITS ---
PROCEDURE: XR CERVICAL SPINE 2V OR 3V INDICATIONS: Eval and Treat TECHNIQUE: 3 view(s) of the cervical spine were acquired. COMPARISON: 08/10/2020 CT cervical spine. FINDINGS: Degenerative straightening of the usual cervical lordosis. Moderate midcervical degenerative changes worst at C5-C6 and C6-C7 with disc height loss and degenerative endplate osteophytic ridging along with facet and uncovertebral hypertrophy. No acute or suspicious bone lesion. IMPRESSION: Moderate midcervical degenerative changes. Dictated by: Jose Lowry M.D. on 06/24/2022 at 18:48 Approved by: Jose Lowry M.D. on 06/24/2022 at 18:49
== END ==
PROVIDERS: PCP Family Medicine; Referring Provider Family Medicine; Visit Provider Family Medicine
DX: M16.12 Unilateral primary osteoarthritis, left hip (principal); M25.552 Pain in left hip; M47.812 Spondylosis without myelopathy or radiculopathy, cervical region
CPT/HCPCS: 72040; 73502

== ENCOUNTER → 2022-09-02 16:04 | Outpatient (CLI) | payer OTHER, MEDICAID, SELFPAY ==
[2020-07-16 09:29] VITALS: BMI 21.2
--- NOTE | 2022-09-02 16:08 | DI.RAD.S_ITS ---
PROCEDURE: XR HIP W PEL IF DONE LT 2V INDICATIONS: Hip pain TECHNIQUE: 2 views of the hip were acquired. COMPARISON: [facility], CR, XR HIP W PEL IF DONE LT 2V, 06/24/2022, 14:49. 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 Soft tissues: No suspicious soft tissue calcifications or masses. 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 Consider confirmation with cross-sectional imaging. Dictated by: Mark Victor M.D. on 09/02/2022 at 16:30 Approved by: Mark Victor M.D. on 09/02/2022 at 16:33
== END ==
PROVIDERS: PCP Family Medicine; Referring Provider Nurse Practitioner Family; Visit Provider Nurse Practitioner Family
DX: M25.552 Pain in left hip (principal)
CPT/HCPCS: 73502

== ENCOUNTER → 2022-11-24 14:18 | Outpatient (CLI) | payer OTHER, MEDICAID, SELFPAY ==
[2020-07-16 09:29] VITALS: BMI 21.2
[2022-11-24 15:31] LABS: Appearance Urine UA CLEAR; Bilirubin Urine UA NEGATIVE (NEGATIVE); Color Urine UA YELLOW; Glucose Urine UA NEGATIVE (Negative); Ketones Urine UA NEGATIVE (NEGATIVE); Leukocyte Esterase Urine UA NEGATIVE (NEGATIVE); Nitrite Urine UA POSITIVE (Negative); Occult Blood Urine UA TRACE-INTACT (Negative); Protein Urine UA NEGATIVE (Negative); Urobilinogen Urine UA 0.2 E.U./dL (0.2)
[2022-11-24 15:37] LABS: Bacteria Urine Many (>30); RBC Urine 1-5/HPF (0-5/HPF); Squamous Epithelial Cell Urine 1-5 /HPF (0-5/HPF); WBC Urine 5-10/HPF (0-5/HPF)
[2022-11-24 15:38] LABS: Culture Indicated Urine Specimen Cultured
[2022-11-24 15:53] LABS: Add Manual Diff / Slide Review NO; Basophils Absolute Auto 0 /uL (0-100); Basophils Percent Auto 0.1 % (0-2); Eosinophils Absolute Auto 0 /uL (0-450); Eosinophils Percent Auto 0.1 % (2-4); Hematocrit 39.4 % (36-46); Hemoglobin 13.2 g/dL (12.0-16.0); Lymphocytes Absolute Auto 1500 /uL (1100-4500); Lymphocytes Percent Auto 14.3 % (25-40); Mean Corpuscular HGB Conc 33.6 % (30-36); Mean Corpuscular Hemoglobin 29.2 PG (26-34); Mean Corpuscular Volume 86.8 fL (80-100); Monocytes Absolute Auto 800 /uL (0-900); Monocytes Percent Auto 7.6 % (3-14); Neutrophils Absolute Auto 8200 /uL (1500-7000); Neutrophils Percent Auto 77.9 % (50-75); Platelet Count 325 X10^3/uL (150-400); Red Blood Cell Count 4.53 X10^6/uL (4.0-5.2); Red Cell Distribution Width 14.2 % (11.6-14.8); White Blood Cell Count 10.5 X10^3/uL (4.5-11.0)
[2022-11-24 16:09] LABS: Blood Urea Nitrogen 13 mg/dL (7-17); Calcium 9.3 mg/dL (8.4-10.2); Carbon Dioxide 23 mmol/L (22-32); Chloride 105 mmol/L (98-107); Estimated Glomerular Filt Rate > 60 mL/min (>60); Glucose 97 mg/dL (70-100); HEMOLYSIS < 15 (0-50); Potassium 3.5 mmol/L (3.4-5.1); Sodium 137 mmol/L (137-145)
[2022-11-25 06:17] LABS: Labcorp Hemoglobin (Hb) A1c 5.6 % (4.8-5.6)
== END ==
PROVIDERS: PCP Family Medicine; Referring Provider Orthopaedic Surgery; Visit Provider Orthopaedic Surgery
DX: Z01.818 Encounter for other preprocedural examination (principal); Z01.812 Encounter for preprocedural laboratory examination; R73.9 Hyperglycemia, unspecified; N39.0 Urinary tract infection, site not specified
CPT/HCPCS: 36415; 80048; 81001; 83036; 85025; 87077; 87086; 87186; 93005; 93010

== ENCOUNTER 2022-12-03 08:25 | Day surgery (SDC) | payer OTHER, MEDICAID, SELFPAY ==
[2020-07-16 09:29] VITALS: BMI 21.2
[2022-11-24 10:49] VITALS: BMI 24.5
[2022-12-03] VITALS (20 sets, daily range): BP systolic 97–151; BP diastolic 50–91; PULSE 57–86; RESP 10–20; TEMP 35.4–37.3; O2SAT 95–100; BMI 24.5
--- NOTE | 2022-12-03 | DI.RAD.S_ITS ---
PROCEDURE: XR HIP W PEL IF DONE LT 2V INDICATIONS: LT TOTAL HIP TECHNIQUE: 4 intraoperative fluoroscopic views of left hip acquired. COMPARISON: [facility], CR, XR HIP W PEL IF DONE LT 2V, 09/02/2022, 16:15. FINDINGS: Intraoperative fluoroscopic images show left total hip arthroplasty in progress. IMPRESSION: Fluoro guidance was provided intraoperatively for left total hip arthroplasty. Dictated by: Everton Vital M.D. on 12/03/2022 at 17:23 Approved by: Everton Vital M.D. on 12/03/2022 at 17:24
--- NOTE | 2022-12-03 06:00 | DI.RAD.S_ITS ---
PROCEDURE: XR HIP W PEL IF DONE LT 2V INDICATIONS: Post op TECHNIQUE: AP pelvis and lateral view of the left hip acquired. [facility], 12/03/2022, 10:49. FINDINGS: Bones: Patient is status post left hip arthroplasty, with hardware components in expected positions. The hip joint appears congruent. The visualized bony structures appear intact. Soft tissues: Overlying postoperative changes are noted. No suspicious soft tissue densities. IMPRESSION: Left hip arthroplasty postsurgical changes. Dictated by: Rebecca Byrd M.D. on 12/03/2022 at 19:38 Approved by: Rebecca Byrd M.D. on 12/03/2022 at 19:39
[2022-12-03] MEDS: VANCOMYCIN 1,000 MG/200 ML PIGGYBACK 200 MG IV (08:45)
[2022-12-03] MEDS: ACETAMINOPHEN 325 MG TABLET 975 MG PO (08:45)
[2022-12-03] MEDS: CELECOXIB 200 MG CAPSULE PO (08:49)
[2022-12-03] MEDS: PREGABALIN 75 MG CAPSULE PO (08:49)
[2022-12-03] MEDS: LACTATED RINGERS 1,000 ML 42 ML IV ×2 (08:50→11:55)
--- NOTE | 2022-12-03 08:55 | PM.PREOP ---
Pre-operative Note Interval Note History & Physical reviewed/Exam performed by Physician: Yes Changes to H&P: No
--- NOTE | 2022-12-03 08:56 | P.OP_ITS ---
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 Non-operative management has failed and the patient has requested total hip replacement. The risks, benefits and alternatives to surgery were discussed with the patient prior to proceeding. Risks discussed included, but were not limited to, failure to relieve pain, leg length discrepancy, dislocation, stiffness, infection, nerve damage, deep venous thrombosis, pulmonary embolism, stroke, coma, heart attack, permanent paralysis and , as well as the potential need for eventual revision of the prosthetic. Surgeon: Tanna Meyers Medical Record Transcriber: Lili Zuñiga Anesthesia Type: Spinal Operative Notes Findings: Severe left hip avascular necrosis, adequate stability, adequate bone Closure Type: primary Specimen(s): none sent Prosthetic devices, grafts, tissues, transplants, or devices: Meyers and nephew R3 46, neutral poly liner, one 6.5 mm screw, Oxinium head 28 by -3, Anthology size 2 standard offset Estimated Blood Loss (mL): 250 Blood products transfused: none Procedure in detail: The patient was brought to the operating room. Patient was carefully positioned in the supine position. Time-out was performed and antibiotics were given. Anesthesia was induced. She was positioned in the on the table in order to allow hyperextension of the hip. The left lower extremity was prepped and draped in a standard sterile fashion. An anterior left hip incision was made 1 fingerbreadth lateral to the anterior superior iliac spine and extended distally towards the greater trochanter. Dissection was carried out through skin and subcutaneous tissues. Superficial hemostasis was achieved. The fascia over the tensor fascia tiffanie was defined and incised with a knife. Two Allis clamps were used to grasp the fascia. Tensor fascia tiffanie was retracted laterally. A gelpi retractor was placed. Dissection was carried out down along the neck. The circumflex vessels were carefully identified and cauterized with the Aqua Mantis. A PA was used throughout the procedure and was essential for retraction and safe implantation of the components. There was good visualization of the femoral neck. A Cobra was placed superior to the neck and the gluteus fibers were carefully stripped from that superior aspect of the capsule. A 2nd retractor was placed along the inferior aspect of the neck. The rectus insertion along the capsule was partially released. A 3rd retractor that was then gently placed over the rim of the acetabulum under the rectus. Capsule was carefully incised and released from the intertrochanteric line circumferentially superior to the mid sagittal line and inferiorly to the mid sagittal line until the lesser trochanter was palpable. A tag stitch was placed both in the superior and inferior limb of the capsular insertion. Along the acetabulum capsule was also released up to the mid sagittal 12:00 position. A portion of the labrum was resected. A saw was used to perform an osteotomy at the level of the intertrochanteric line and the junction of the superior femoral neck leaving approximately 1 finger breath of residual inferior neck above the lesser trochanter. A 2nd cut was made along the femoral neck at the base of the head and a napkin ring of neck was removed. Corkscrew was placed in the femoral head and the head was removed without difficulty. Retractors were then repositioned around the acetabulum. Residual labrum was resected and additional osteophytes were removed. A reamer that was 4 mm below the templated size was placed by hand in the acetabulum and it was reamed to centralize the acetabulum. It was then reamed up to 2 under the templated size and fluoroscopy was brought in to confirm the position of the reaming and depth of reaming. I reamed 1 under the anticipated size. A trial cup was placed and noted that it was appropriately sized and fluoroscopy confirmed position and depth. The component was open and inserted without difficulty fluoroscopic imaging was used to confirm that the cup had been adequately seated and was well positioned. It was further stabilized with a single screw. Neutral poly liner was placed. The cup was tested and noted to be stable. Attention was then directed to the femur. The femur was gently hyperextended additional capsular release was performed as needed in order to allow adequate visualization of the proximal femur with elevation of the femur. Patient was placed in a hyperextended slightly adducted position with maximum external rotation. Box osteotome was used to check for any residual neck as well as sclerotic bone along the trochanter. Ancram pepper was placed in the femur. I looked at both the anthology as well as the polar. Was a little tight with the polar even with the minus broach. I felt that the anthology was little better fit for her bone and canal. The initial size 1 broach was placed. Additional broaching was performed. Canal finder was used to determine the alignment of the canal and position. Size 1 broach was placed. The canal was then appropriately broached up to the templated size as long as there was adequate stability of the broach and serial advancement of the broach without excessive impingement. Specific attention was directed at avoiding varus attempting to direct the distal aspect of the broach more anteriorly and avoiding excessive anteversion. Trial reduction showed acceptable range of motion, good stability, no posterior impingement, quaker of leg length and appropriate lateral shuck. I also hyperflexed the hip and checked that there was no impingement anteriorly and there was good stability with flexion, adduction and internal rotation. Marcaine and Exparel were injected. The stem was placed without difficulty. Repeat trial reduction and x-ray showed acceptable overall position, length, and no evidence of the femoral fracture. Final head was placed. Wound was meticulously irrigated with normal saline. The hip was reduced and additional Exparel and Marcaine were injected. The capsule was closed with interrupted nonabsorbable sutures. The fascia of the tensor was closed with interrupted and running Vicryl. No drain was placed. Any tensor fascia tiffanei muscle that appeared to be contused or injured which was a minimal amount was carefully resected. Capsule around the tensor was injected with Exparel and Marcaine. The skin was closed with barbed stitches for the subcutaneous tissue and skin. We also used surgical glue. The wound was dressed sterilely. Brief Betadine soak was also used and was meticulously irrigated with normal saline. Patient was transferred to recovery room in satisfactory condition. Complications: none Post-operative Condition: stable Disposition: observation Plan for aftercare: The patient will be maintained on a standard total hip replacement protocol with weight bearing as tolerated and anterior hip precautions. The patient will receive Aspirin and sequential compression devices for DVT prophylaxis. The patient will be discharged home when safe for the home environment.
[2022-12-03] MEDS: CEFAZOLIN 2 GM/100 ML PREMIX 100 ML IV ×2 (09:30→16:50)
--- NOTE | 2022-12-03 10:11 | SUR.OPER ---
Supine on padded [place] table with bilateral legs secured in padded positioning boots and suspended in positioning spars, operative leg in traction per surgeon. Head on one pillow. Arm on non-operative side secured on padded armboard <90 degrees abduction. Arm on operative side padded and resting across chest then secured with tape over sheet. Padded perineal post in place per surgeon.
[2022-12-03] MEDS: TRANEXAMIC ACID 1,000 MG VIAL 1000 MG INJ ×2 (10:18→11:40)
[2022-12-03] MEDS: BUPIVACAINE LIPOSOME 266 MG/20 ML VIAL INJ (10:20)
[2022-12-03] MEDS: BUPIVACAINE 0.25% (PF) 60 ML, EPINEPHrine 0.3 MG INJ (10:21)
[2022-12-03] MEDS: ACETAMINOPHEN IV 1,000 MG/100 ML VIAL 400 MG IV (11:08)
[2022-12-03] MEDS: HYDROMORPHONE 2 MG INJ IV ×4 (12:54→13:09)
[2022-12-03] MEDS: ONDANSETRON 4 MG/2 ML INJ IV (12:55)
--- NOTE | 2022-12-03 13:10 | SUR.PHASEI ---
attempted to call [facility] anesthesia as pt reported pain 10 of 10 unrelieved by 2 mg of Dilaudid. call went to .
[2022-12-03] MEDS: OXYCODONE/ACETAMINOPHEN 5/325 TABLET 1 TAB PO (13:21)
[2022-12-03] MEDS: IBUPROFEN 400 MG TABLET PO ×3 (14:08→20:16)
[2022-12-03] MEDS: GABAPENTIN 600 MG TABLET PO ×3 (14:08→20:16)
[2022-12-03] MEDS: LACTATED RINGERS 1,000 ML 100 ML IV (14:09)
[2022-12-03] MEDS: hydrOXYzine pamoate 25 MG CAPSULE PO (14:09)
--- NOTE | 2022-12-03 14:39 | PT-IP ANOTE ---
Attempted to see patient this afternoon. She was lethargic and reported 8/10 pain. Not appropriate to work with PT yet. Assisted patient to comfortable R sidelying position with pillow between knees for neutral hip rotation. Educated patient on anterior hip precautions. Will plan to eval tomorrow AM.
[2022-12-03] MEDS: OXYCODONE IR 5 MG TABLET PO ×2 (16:51→20:16)
[2022-12-03] MEDS: ASPIRIN EC 81 MG TABLET PO (20:16)
[2022-12-03] MEDS: DOCUSATE 100 MG CAPSULE PO (20:16)
[2022-12-04] MEDS: LACTATED RINGERS 1,000 ML 100 ML IV (00:26)
[2022-12-04] MEDS: CEFAZOLIN 2 GM/100 ML PREMIX 100 ML IV (01:17)
[2022-12-04] MEDS: IBUPROFEN 400 MG TABLET PO ×6 (01:18→20:01)
[2022-12-04 01:26] VITALS: BP 110/60; PULSE 63; RESP 18; TEMP 36.4; O2SAT 100
[2022-12-04] MEDS: OXYCODONE IR 10 MG TABLET PO ×6 (03:08→23:38)
[2022-12-04] MEDS: hydrOXYzine pamoate 25 MG CAPSULE PO ×3 (03:08→20:01)
[2022-12-04] MEDS: ACETAMINOPHEN 325 MG TABLET 650 MG PO ×4 (05:07→23:39)
[2022-12-04 05:15] VITALS: BP 102/56; PULSE 64; RESP 18; TEMP 36.3; O2SAT 100
[2022-12-04 06:20] LABS: Hematocrit 33.1 % (36-46)
[2022-12-04 07:30] VITALS: BP 93/51; PULSE 69; RESP 15; TEMP 36.7; O2SAT 99
[2022-12-04] MEDS: polyethylene glycoL 3350 17 GM POWD.PACK PO (08:26)
[2022-12-04] MEDS: DOCUSATE 100 MG CAPSULE PO ×2 (08:27→20:01)
[2022-12-04] MEDS: ASPIRIN EC 81 MG TABLET PO ×2 (08:27→20:01)
[2022-12-04] MEDS: GABAPENTIN 600 MG TABLET PO ×4 (08:27→20:01)
[2022-12-04] MEDS: LEVOTHYROXINE 50 MCG TABLET PO (09:08)
[2022-12-04] MEDS: OXYCODONE IR 5 MG TABLET PO (09:08)
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
[2022-12-04 12:07] VITALS: BP 106/55; PULSE 77; RESP 18; O2SAT 100
--- NOTE | 2022-12-04 16:26 | PC.NURSE ---
Day shift: Pt's S.O. here at approx 1600 and agrees to district manager primary care sales training tomorrow at 1000 and Pt agrees as well. Pt somewhat disappointed at this time about not going home. Pain 7/10 when moving and Per Jackie (PT) Pt not safe to d/c today. Pain has been well controlled per JUL. VS stable and RA 99%. CMS intact. Denies any chest pain or nausea. Uses call light proper.
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
[2022-12-04 20:35] VITALS: BP 111/51; PULSE 90; RESP 18; TEMP 36.8; O2SAT 98
[2022-12-05 00:44] VITALS: BP 119/60; PULSE 83; RESP 18; TEMP 36.8; O2SAT 97
[2022-12-05 03:46] VITALS: BP 116/60; PULSE 73; RESP 18; TEMP 36.6; O2SAT 100
[2022-12-05] MEDS: hydrOXYzine pamoate 25 MG CAPSULE PO ×2 (04:03→12:24)
[2022-12-05] MEDS: OXYCODONE IR 10 MG TABLET PO ×3 (04:03→11:14)
[2022-12-05] MEDS: ACETAMINOPHEN 325 MG TABLET 650 MG PO ×2 (04:04→11:14)
[2022-12-05] MEDS: IBUPROFEN 400 MG TABLET PO ×3 (05:45→12:24)
[2022-12-05] MEDS: GABAPENTIN 600 MG TABLET PO ×2 (08:14→12:24)
[2022-12-05] MEDS: LEVOTHYROXINE 50 MCG TABLET PO (08:14)
[2022-12-05] MEDS: ASPIRIN EC 81 MG TABLET PO (08:14)
[2022-12-05] MEDS: DOCUSATE 100 MG CAPSULE PO (08:14)
[2022-12-05 08:37] VITALS: BP 102/55; PULSE 75; RESP 18; TEMP 36.6; O2SAT 98
--- NOTE | 2022-12-05 10:58 | PT.IPTN ---
Current Diagnoses Idiopathic aseptic necrosis of left femur (12/03/22) Surgery Performed Operation Date: 12/03/22 09:00 Actual Procedures p Total Hip Arthroplasty/Anterior Approach(Left) - Tanna Meyers MD Physical Therapy Treatment Note M2 PT-IP Current Condition Start: 12/04/22 13:25 Freq: NEEDED Status: Active Protocol: Document 12/04/22 11:45 AB (Rec: 12/04/22 17:19 AB [id number]) Physical Therapy Current Condition Current Condition Evaluation Date 12/04/22 Treatment Diagnosis s/p L STONE anterior approach; difficulty in walking Onset Date 12/03/22 M3 PT-IP Subjective Start: 12/04/22 13:25 Freq: NEEDED Status: Active Protocol: Document 12/05/22 10:35 KS (Rec: 12/05/22 12:35 KS [id number]) Subjective Physical Therapy Visit Type Type Treatment Note Visit Start Time 10:35 Visit Stop Time 10:58 Total Visit Minutes 23 Notes pts partner present for caregiver training. Number of METER AND REGULATOR SHOP SUPERVISOR Visits 1 Physical Therapy Visit Comments Patient Comments agreeable to do PT Therapy Pain Assessment Pain When Pain Assessed During Mobility Pain Present Pain Present Pain Reported Location Left Hip Intensity 6 Scale Used Numeric (0 - 10) Description With Movement Pain Management Techniques Timing of Activity with Medications M4 PT-IP Mobility and Gait Start: 12/04/22 13:25 Freq: NEEDED Status: Active Protocol: Document 12/05/22 10:35 KS (Rec: 12/05/22 12:35 KS [id number]) PT-Bed Mobility Assessment Supine to Sit Supine to Sit Independent Sit to Supine Sit to Supine Independent Scooting Scooting to Edge of Bed Independent PT-Transfer Assessment Sit to and From Stand Sit to and from Stand Standby Assistance,1 Person Assistance,Use of Upper Extremities Equipment Transfer Assistive Device Gait Belt,Front Wheeled Walker Orthotic/Prosthetic Devices or Brace: No Transfers Transfer Destination Bed Transfer Technique ambulated Transfer Ability Level of Assist Standby Assistance,1 Person Assistance,Use of Upper Extremities Comments Mobility Comments Pt in bed upon arrival, able to get out of bed independently. Demonstrated gait belt application to pts SO. Pt ambulated ~200 ft to stairs w/ FWW SBA and performed 1x platform step and 3 stairs w/ REVENUE STAMPER from SO. She then ambulated 200 ft back to room w/ FWW and returned to bed SBA. Pt feels safe and ready to return home. Gait Assessment Gait Gait Assistance Required: Standby Assistance,1 Person Assist Distance (Feet) 400 Able to Maintain Weight Bearing Status Yes During Gait Assistive Devices Assistive Device Gait Belt,Front Wheeled Walker Orthotic/Prosthetic Devices or Brace: No Gait Deviations General Gait Pattern Antalgic,Decreased Stride Length,Step-to Gait Factors Limiting Gait Function Factors Limiting Gait Function Decreased Strength,Limited Range of Motion,Pain,Poor Balance Comments Gait Comments see mobility Stair Climbing Assessment Evaluation Level of Assist On Stairs Contact Guard Assistance,1 Person Assistance Devices Stair Climbing Assistive Devices Front Wheel Walker Technique/Endurance Stair Climbing Direction Ascend and Descend Stair Climbing Technique Step to Step Number of Steps Climbed 4 Stair Climbing Set # Repetitions (reps) 1 Comments Stair Climbing Comments Pt ascended/descended 1x platform step w/ FWW CGA and cues for sequencing and 3x stairs w/ REVENUE STAMPER and cues for sequencing provided by SO. Pt and SO feel safe to complete stairs leading into home. PT-Balance Assessment Sitting Balance and Reactions Static Sitting Balance Ability Normal Dynamic Sitting Balance Ability Normal Standing Balance and Reactions Static Standing Balance Ability Good Dynamic Standing Balance Ability Good Device Used FWW M5 PT-IP Objective Assessments Start: 12/04/22 13:25 Freq: NEEDED Status: Active Protocol: Document 12/04/22 11:45 AB (Rec: 12/04/22 17:19 AB [id number]) Orientation Orientation/Cognition Level of Alertness Alert Orientation Name,Situation Language Function Ability No Deficits Noted Safety Awareness Decreased Safety Awareness Memory Description Short Term Impaired Gross Range of Motion Lower Extremity ROM Assessment Left Impaired Impairments L hip tightness/guarding during ROM testing due to c/o increase pain Muscle Tone Muscle Tone WNL Yes M6 PT-IP Treatment Start: 12/04/22 13:25 Freq: NEEDED Status: Active Protocol: Document 12/05/22 10:35 KS (Rec: 12/05/22 12:35 KS [id number]) Physical Therapy Treatment Education Education Provided Precautions,Weight Bearing Status,Post-Op Packet,Safety Other Treatments Other Treatment Performed caregiver training M7 PT-IP Assessment and Plan Start: 12/04/22 13:25 Freq: NEEDED Status: Active Protocol: Document 12/05/22 10:35 KS (Rec: 12/05/22 12:35 KS [id number]) PT Summary Assessment and Plan Potential Rehabilitation Potential Excellent Summary Impairments Pain,ROM,Strength,Balance, Coordination,Sensation,Tone, Cognition,Bed Mobility, Transfers,Gait,Activity Tolerance Progress Towards Goals Progressing Toward Goals Assessment Summary Pt much improved, ambulated 400 ft w/ FWW SBA and completed caregiver and stair training successfully. She required Min cues for sequencing but no more than CGA throughout treatment and can perform most mobility independently. Dispensed FWW for home use. Pt will benefit from OPPT to improve strength, stability, and ROM. Goals Bed Mobility Goal Independent Transfer Goal Contact Guard Assistance,Front Wheeled Walker Gait Goal Contact Guard Assistance,Front Wheel Walker Gait Distance 150 Other Goals up/down 2 steps REVENUE STAMPER min A Days to Meet Goals 10 Frequency of Treatment Frequency Of Treatment Twice a Day Treatment Plan Physical Therapy Treatment Plan Bed Mobility Training,Transfer Training,Gait Training, Therapeutic Exercise,Balance Retraining,Post Op Education, Discharge Planning,Hot or Cold Pack,Neuromuscular Re-ed, Coordination Retraining,Manual Therapy Precautions Anterior Hip Precautions No Hip Extension,No Hip External Rotation Weight Bearing Status Weight Bearing Status Weight Bear as Tolerated Allowed Weight Bearing Amount (enter % LLE WBAT or #) (%) Recommendations To Nursing Amount of Assist Needed 1 Person Assist Discharge Recommendations PT Discharge Recommendations Home with 20/12 Assist Available,Home Health,SNF Rehab,Home vs SNF Equipment Needed for Home Before FWW Discharge Transportation Needs at Discharge Private Vehicle
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
== END 2022-12-05 12:50 | disposition home or self-care (01) ==
LOC: OR 08:27 → AC 08:28
PROVIDERS: PCP Family Medicine; Referring Provider Orthopaedic Surgery; Visit Provider Orthopaedic Surgery
PROC: (CPT 27130; principal; 2022-12-03 09:00)
DX: M87.852 Other osteonecrosis, left femur (principal); M89.752 Major osseous defect, left pelvic region and thigh
CPT/HCPCS: 27130; 36415; 73502; 76000; 85014; 85018; 97116; 97162; 97530; C1776; C9290; J0131; J0171; J0690; J1100; J1170; J2250; J2405; J2704; J3010

== ENCOUNTER 2022-12-10 17:46 | Emergency (ER) | payer OTHER, MEDICAID, SELFPAY ==
[2022-12-03 15:19] VITALS: BMI 24.5
[2022-12-10] VITALS (13 sets, daily range): BP systolic 101–141; BP diastolic 56–77; PULSE 66–100; RESP 13–25; TEMP 36.6–36.8; O2SAT 89–100; BMI 25.7
--- NOTE | 2022-12-10 18:10 | DI.RAD.S_ITS ---
PROCEDURE: XR CHEST 1V INDICATIONS: suspected sepsis TECHNIQUE: One view of the chest was acquired. COMPARISON: [facility], , XR CHEST 1V, 12/11/2019, 10:16. FINDINGS: Surgical changes and devices: Rim calcified mammoplasty implants can be seen. Lungs and pleura: Lungs are clear. No pleural effusions or pneumothorax. Mediastinum: Mediastinal contours appear normal. Heart size is normal. Bones and chest wall: No suspicious bony lesions. Overlying soft tissues appear unremarkable. IMPRESSION: Clear lungs, without infiltrates. Dictated by: Hakan Reilly M.D. on 12/10/2022 at 17:57 Approved by: Hakan Reilly M.D. on 12/10/2022 at 17:57
--- NOTE | 2022-12-10 18:11 | DI.RAD.S_ITS ---
PROCEDURE: XR HIP W PEL IF DONE LT 2V INDICATIONS: post op t-7, hot/red TECHNIQUE: AP pelvis with lateral view(s) of the left hip(s). COMPARISON: [facility], [facility], XR HIP W PEL IF DONE LT 2V, 12/03/2022, 10:49. [facility], [place], XR HIP W PEL IF DONE LT 2V, 12/03/2022, 12:17. FINDINGS: Bones: No fractures or dislocations. Pelvic ring appears intact. No suspicious bony lesions. Left hip arthroplasty hardware is seen, without findings of postoperative complication by plain film. Soft tissues: The visualized bowel gas pattern is normal. No suspicious soft tissue calcifications. IMPRESSION: Unremarkable plain film study, with unremarkable left hip arthroplasty hardware. Dictated by: Hakan Reilly M.D. on 12/10/2022 at 17:56 Approved by: Hakan Reilly M.D. on 12/10/2022 at 17:56
--- NOTE | 2022-12-10 18:38 | PC.NURSE ---
Pt called multiple times in waiting room with no response.
--- NOTE | 2022-12-10 18:41 | PC.NURSE ---
Called all three phone numbers listed in pt record. No answer.
--- NOTE | 2022-12-10 18:49 | PC.NURSE ---
Pt still not seen in lobby and no one responding to her name.
--- NOTE | 2022-12-10 18:55 | PC.NURSE ---
Pt located in lobby and brought to room
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
--- NOTE | 2022-12-10 18:59 | DI.US.S_ITS ---
PROCEDURE: US PERIPH VENOUS LOW EXTREM LT INDICATIONS: PAIN, EDEMA 1 WEEK POST LEFT HIP REPLACEMENT TECHNIQUE: Real-time imaging, as well as color and pulse Doppler interrogation, were performed of the lower extremity deep veins from the inguinal ligament to the popliteal fossa. COMPARISON: None. FINDINGS: The common femoral, femoral and popliteal veins are normally compressible, and free of intraluminal thrombus. Color and pulse Doppler demonstrate normal phasic intraluminal flow. There is normal augmentation response to distal compression maneuver. IMPRESSION: No evidence of DVT in visualized left lower extremity veins. Dictated by: Everton Vital M.D. on 12/10/2022 at 19:52 Approved by: Everton Vital M.D. on 12/10/2022 at 19:52
--- NOTE | 2022-12-10 19:30 | PC.NURSE ---
Multiple attempts to start IV without success. Contacting another RN to start.
--- NOTE | 2022-12-10 19:45 | PC.NURSE ---
Pt c/o pain and swelling of LLE and left groin. Bandaged incision from hip surgery one week ago is surrounded by firm erythematous area. Distal extremity is erythematous and swollen to ankle. Distal CMS intact.
--- NOTE | 2022-12-10 19:55 | PC.NURSE ---
Some labs obtained from IV start; more needed. Called lab for phlebotomy.
[2022-12-10 20:08] LABS: Add Manual Diff / Slide Review NO; Basophils Absolute Auto 100 /uL (0-100); Basophils Percent Auto 0.9 % (0-2); Eosinophils Absolute Auto 0 /uL (0-450); Eosinophils Percent Auto 0.1 % (2-4); Hematocrit 31.3 % (36-46); Hemoglobin 10.5 g/dL (12.0-16.0); Lymphocytes Absolute Auto 2000 /uL (1100-4500); Lymphocytes Percent Auto 21.9 % (25-40); Mean Corpuscular HGB Conc 33.7 % (30-36); Mean Corpuscular Hemoglobin 29.6 PG (26-34); Mean Corpuscular Volume 87.9 fL (80-100); Monocytes Absolute Auto 500 /uL (0-900); Neutrophils Absolute Auto 6600 /uL (1500-7000); Neutrophils Percent Auto 72.1 % (50-75); Platelet Count 449 X10^3/uL (150-400); Prothrombin Time 11.7 SECONDS (10.1-12.7); Red Blood Cell Count 3.56 X10^6/uL (4.0-5.2); Red Cell Distribution Width 14.5 % (11.6-14.8); White Blood Cell Count 9.1 X10^3/uL (4.5-11.0)
[2022-12-10 20:11] LABS: PTT Partial Thromboplastin Tim 30 SECONDS (26-36)
[2022-12-10 20:13] LABS: Alanine Aminotransferase 108 IU/L (<35); Albumin 4.1 g/dL (3.5-5.0); Albumin Globulin Ratio 1.1 (1.0-2.8); BUN Creatinine Ratio 28.6 (6-22); Bilirubin Total 0.5 mg/dL (0.2-1.3); Blood Urea Nitrogen 16 mg/dL (7-17); Calcium 9.5 mg/dL (8.4-10.2); Carbon Dioxide 27 mmol/L (22-32); Chloride 101 mmol/L (98-107); Estimated Glomerular Filt Rate > 60 mL/min (>60); Globulin 3.8 g/dL (1.7-4.1); Glucose 81 mg/dL (70-100); Lipase 18 U/L (23-300); Sodium 137 mmol/L (137-145); Total Protein 7.9 g/dL (6.3-8.2)
[2022-12-10] MEDS: SODIUM CHLORIDE 0.9% 1,000 ML 1000 ML IV (20:14)
[2022-12-10 20:19] LABS: HEMOLYSIS 55 (0-50)
[2022-12-10 20:20] LABS: Potassium 4.7 mmol/L (3.4-5.1)
[2022-12-10 20:21] LABS: Alkaline Phosphatase 171 U/L (38-126); Aspartate Aminotransferase 89 IU/L (14-36)
[2022-12-10] MEDS: OXYCODONE IR 5 MG TABLET 10 MG PO (20:26)
[2022-12-10 20:30] LABS: Procalcitonin 0.06 ng/mL (<0.5)
[2022-12-10 20:47] LABS: Lactate (Lactic Acid) 1.1 mmol/L (0.7-2.1)
--- NOTE | 2022-12-10 22:00 | PC.NURSE ---
Dressed surgical incision per MD request with ABD pad and tape. Incision appears well approximated and free of drainage. Pt reports pain relief.
== END 2022-12-10 22:10 | disposition home or self-care (01) ==
PROVIDERS: Emergency Provider Emergency Medicine; PCP Family Medicine
DX: G89.18 Other acute postprocedural pain (principal); Z96.642 Presence of left artificial hip joint; R60.0 Localized edema
CPT/HCPCS: 36415; 71045; 73502; 80053; 81003; 83605; 83690; 84145; 85025; 85610; 85730; 87040; 93005; 93971; 99284